=== PATIENT | female | born 1990 | race Caucasian/White ===

== ENCOUNTER 2019-08-28 12:10 | Emergency (ER) | payer SELFPAY ==
[2019-08-28 12:15] VITALS: BP 136/90; PULSE 49; RESP 12; TEMP 36.7; O2SAT 100; BMI 18.5
--- NOTE | 2019-08-28 12:25 | W.ED.ABDPA2 ---
HPI - Abdominal Pain General: Chief Complaint: Abdominal Pain Stated Complaint: abd pain Time Seen by Provider: 08/28/19 12:25 Source: patient Mode of arrival: ambulatory Limitations: no limitations History of Present Illness: HPI narrative: Patient is a 29-year-old female who presents to ED today with complaints of abdominal pain, nausea, vomiting, diarrhea that initially began on Saturday. She states she had approximately 3 episodes of vomiting and 3 episodes of diarrhea. She denies blood in her vomit or coffee-ground emesis. She has not had any bright red blood or melanotic stools. Patient states all day Saturday and she felt back to normal but states today diarrhea began again and has had approximately 3-5 stools. No further episodes of vomiting. States will have abdominal crampy-like sensations prior to defecation that will alleviate after having a stool. She has not been running fevers. No sick contacts. No recent antibiotic use. No bad food exposures. No EtOH or NSAID use. MD elicited complaint: abdominal pain Pertinent past history: none Onset (ago): day(s) Pain Consistency: intermittent Location: Diffuse Quality: cramping Radiation: none Migration to: no migration Exacerbating factors: nothing Relieving factors: bowel movement Associated Symptoms: Reports GI cramping, diarrhea, nausea and vomiting; Denies belching, chills, coffee ground emesis, dysuria, excessive flatus, fever(s), heartburn, hematochezia, hematemesis, fecal incontinence, melena and syncope Related Data: Date of Last Menstrual Period: 08/13/19 Review of Systems Const: Denies: fever, chills, body aches, fatigue or malaise Eyes: Denies: change in vision or blurry vision ENMT: Denies: painful swallowing Card: Denies: chest pain, palpitations, irregular heart rhythm, lightheadedness, syncope or shortness of breath on exertion Resp: Denies: shortness of breath, productive cough or pain on inspiration GI: Reports: abdominal pain, nausea, vomiting, diarrhea and cramping; Denies: vomiting blood, coffee grounds in vomit, difficulty swallowing, heartburn/indigestion, feeling full early, belching, excessive passing of gas, fecal incontinence, painful bowel movements, rectal pain, rectal swelling, rectal itching, blood in stool, black tarry stool, mucus in stool, white/light colored stool or fatty stool : Denies: flank pain, difficulty urinating, painful urination, urinary frequency, urinary urgency or urinary hesitancy Musc: Denies: neck pain, back pain or joint pain Skin/Breast: Denies: rash Neuro: Denies: headache, numbness in extremities, weakness in extremities or changes in sensation PFSH ED PFSH: Social History Smoking and tobacco status: current every day smoker Female Reproductive History: Date of last menstrual period: 08/13/19 Physical Exam Const: COMMON NORMALS: no apparent distress, average body habitus, oriented x3, no limitations, healthy appearing, alert and well nourished Resp: COMMON NORMALS: normal respiratory effort and clear to auscultation bilaterally AUSCULTATION: clear to auscultation bilaterally Cardio: COMMON NORMALS: regular rate and regular rhythm RATE: regular rate RHYTHM: regular rhythm GI: COMMON NORMALS: normal to inspection, nondistended, normoactive bowel sounds, soft to palpation, no hepatosplenomegaly and no masses PALPATION: Yes soft, Yes tender (very mild tenderness throughout; non-surgical examination) and Yes no hepatosplenomegaly : COMMON NORMALS: Yes no CVA tenderness BLADDER/KIDNEY EXAM: Yes no CVA tenderness Back/Pelvis: COMMON NORMALS: no CVA tenderness Extremity: COMMON NORMALS: normal to inspection Neuro: COMMON NORMALS: oriented x3 SENSORIUM/ORIENTATION: Yes alert Skin: COMMON NORMALS: no rashes or lesions noted GENERAL SKIN EXAM: no rashes or lesions noted Course Vital Signs: Vital signs: Vital Signs Temperature 98.1 F 08/28/19 12:15 Pulse Rate 49 L 08/28/19 12:15 Respiratory Rate 12 08/28/19 12:15 Blood Pressure 136/90 08/28/19 12:15 Pulse Oximetry 100 08/28/19 12:15 MDM - Abdominal Pain MDM Narrative: Medical decision making narrative: pt clinically appears well; her vitals and labs area all stable/normal; she has a non-surgical abdominal exam; she was given IV fluid hydration here; she is stable for DC with return precautions Lab Data: Labs: Lab Results 08/28/19 08/28/19 08/28/19 Range/Units 12:37 12:37 12:37 WBC 5.8 (4.0-10.0) 10^3/ uL RBC 4.21 (4.1-5.3) 10^6/u L Hgb 12.3 (11.5-15.3) g/dL Hct 38.9 (37.0-47.0) % MCV 92.4 (81-99) fL MCH 29.2 (28.0-34.0) pg MCHC 31.6 (30.0-36.0) g/dL RDW 15.2 H (12.1-15.1) % Plt Count 316 (130-400) 10^3/c mm MPV 10.1 (7.4-10.4) fL Neut % (Auto) 56.6 % Lymph % (Auto) 35.5 % Smyth % (Auto) 5.1 % Eos % (Auto) 2.1 % Baso % (Auto) 0.5 % Neut # (Auto) 3.3 (1.8-7.7) 10^3/u L Lymph # (Auto) 2.1 (0.8-4.8) 10^3/u L Smyth # (Auto) 0.3 (0.2-0.9) 10^3/u L Eos # (Auto) 0.1 (0.0-0.8) 10^3/u L Baso # (Auto) 0.0 (0.0-0.1) 10^3/u L Nucleated RBC % (a uto) 0 % Nucleated RBCs # 0.0 /100WBC Sodium 138 (136-145) mmol/L Potassium 3.9 (3.5-5.1) mmol/L Chloride 102 (98-107) mmol/L Carbon Dioxide 26 (22-29) mmol/L Anion Gap 13.9 (5-19) BUN 7 (6-20) mg/dL Creatinine 0.6 (0.5-0.9) mg/dL GFR Calculation 116.6 (90-130) mL/min Glucose 96 (65-115) mg/dL Calculated Osmolal ity 282 L (285-295) mOsm/k g Calcium 8.8 (8.5-10.5) mg/dL Total Bilirubin 0.4 (0.15-1.2) mg/dL AST 29 (0-32) U/L ALT 27 (0-33) U/L Alkaline Phosphata se 71 (35-105) IU/L Total Protein 6.7 (6.6-8.7) g/dL Albumin 4.6 (3.5-5.2) g/dL Globulin 2.1 (1.3-4.6) g/dL Lipase 23 (13-60) U/L HCG, Qual Negative (Negative) Urine Color (Yellow) Urine Appearance (CLEAR) Urine pH (5-7) Ur Specific Gravit y (1.005-1.030) Urine Protein (Negative) Urine Glucose (UA) (Normal) Urine Ketones (Negative) Urine Blood (Negative) Urine Nitrate (Negative) Urine Bilirubin (NEGATIVE) Urine Urobilinogen (Negative) mg/dL Ur Leukocyte Linda ase (Negative) 08/28/19 Range/Units 13:02 WBC (4.0-10.0) 10^3/ uL RBC (4.1-5.3) 10^6/u L Hgb (11.5-15.3) g/dL Hct (37.0-47.0) % MCV (81-99) fL MCH (28.0-34.0) pg MCHC (30.0-36.0) g/dL RDW (12.1-15.1) % Plt Count (130-400) 10^3/c mm MPV (7.4-10.4) fL Neut % (Auto) % Lymph % (Auto) % Smyth % (Auto) % Eos % (Auto) % Baso % (Auto) % Neut # (Auto) (1.8-7.7) 10^3/u L Lymph # (Auto) (0.8-4.8) 10^3/u L Smyth # (Auto) (0.2-0.9) 10^3/u L Eos # (Auto) (0.0-0.8) 10^3/u L Baso # (Auto) (0.0-0.1) 10^3/u L Nucleated RBC % (a uto) % Nucleated RBCs # /100WBC Sodium (136-145) mmol/L Potassium (3.5-5.1) mmol/L Chloride (98-107) mmol/L Carbon Dioxide (22-29) mmol/L Anion Gap (5-19) BUN (6-20) mg/dL Creatinine (0.5-0.9) mg/dL GFR Calculation (90-130) mL/min Glucose (65-115) mg/dL Calculated Osmolal ity (285-295) mOsm/k g Calcium (8.5-10.5) mg/dL Total Bilirubin (0.15-1.2) mg/dL AST (0-32) U/L ALT (0-33) U/L Alkaline Phosphata se (35-105) IU/L Total Protein (6.6-8.7) g/dL Albumin (3.5-5.2) g/dL Globulin (1.3-4.6) g/dL Lipase (13-60) U/L HCG, Qual (Negative) Urine Color Yellow (Yellow) Urine Appearance Clear (CLEAR) Urine pH 7 (5-7) Ur Specific Gravit y 1.005 (1.005-1.030) Urine Protein Neg (Negative) Urine Glucose (UA) Norm (Normal) Urine Ketones Negative (Negative) Urine Blood Neg (Negative) Urine Nitrate Negative (Negative) Urine Bilirubin Neg (NEGATIVE) Urine Urobilinogen Norm (Negative) mg/dL Ur Leukocyte Linda ase Negative (Negative) Discharge Plan Discharge Patient Disposition: Home, Self-Care Clinical Impression: Gastroenteritis Condition: Stable Prescriptions: New Zofran 4 mg tablet 4 mg PO Q6H PRN (Reason: nausea and vomiting) Qty: 14 RF: 0 dicyclomine 20 mg tablet 20 mg PO QID PRN (Reason: diarrhea) Qty: 20 RF: 0 No Action Multiple Vitamins Tablet 1 tab PO DAILY RF: 0 ProAir HFA 90 mcg/actuation Hfa Aerosol Inhaler 2 puff INHALATION Q4H PRN (Reason: Shortness Of Breath) RF: 0 Discharge Orders: Discharge Order (Routine); Ordered 08/28/19 Ordered By: Yelitza Bond Referrals: Konstantin Meeks MD [Primary Care Provider] - Discharge Diet: Advance as tolerated Discharge Activity: Increase activity as tolerated Patient Instructions: Diarrhea - Adult, Gastroenteritis (ED) Coding Level of Care Code ED Staff Climate Scientist for Chg Fwd Exam Detailed
[2019-08-28 12:44] LABS: Basophils % 0.5 %; Eosinophils # 0.1 10^3/uL (0.0-0.8); Eosinophils % 2.1 %; Hematocrit 38.9 % (37.0-47.0); Hemoglobin 12.3 g/dL (11.5-15.3); Lymphocytes # 2.1 10^3/uL (0.8-4.8); Lymphocytes % 35.5 %; Mean Corpuscular HGB Conc 31.6 g/dL (30.0-36.0); Mean Corpuscular Hemoglobin 29.2 pg (28.0-34.0); Mean Corpuscular Volume 92.4 fL (81-99); Mean Platelet Volume 10.1 fL (7.4-10.4); Monocytes # 0.3 10^3/uL (0.2-0.9); Monocytes % 5.1 %; Neutrophils # 3.3 10^3/uL (1.8-7.7); Neutrophils % 56.6 %; Nucleated Red Blood Cells % 0 %; Platelet Count 316 10^3/cmm (130-400); Red Blood Count 4.21 10^6/uL (4.1-5.3); Red Cell Distribution Width 15.2 % (12.1-15.1); White Blood Count 5.8 10^3/uL (4.0-10.0)
[2019-08-28 13:00] LABS: Alanine Aminotransferase 27 U/L (0-33); Albumin Level 4.6 g/dL (3.5-5.2); Alkaline Phosphatase 71 IU/L (35-105); Anion Gap 13.9 (5-19); Aspartate Amino Transferase 29 U/L (0-32); Blood Urea Nitrogen 7 mg/dL (6-20); Calcium 8.8 mg/dL (8.5-10.5); Carbon Dioxide 26 mmol/L (22-29); Chloride 102 mmol/L (98-107); Globulin 2.1 g/dL (1.3-4.6); Glomerular Filtration Rate 116.6 mL/min (90-130); Glucose 96 mg/dL (65-115); Lipase 23 U/L (13-60); Osmolality Calculated 282 mOsm/kg (285-295); Potassium 3.9 mmol/L (3.5-5.1); Sodium 138 mmol/L (136-145); Total Bilirubin 0.4 mg/dL (0.15-1.2); Total Protein 6.7 g/dL (6.6-8.7)
[2019-08-28] MEDS: sodium chloride 0.9% 1,000 ML 999 ML IV (13:00)
[2019-08-28] MEDS: dicyclomine 20 mg Tablet PO (13:00)
[2019-08-28 13:01] LABS: HCG, Serum Qual Negative (Negative)
[2019-08-28 13:25] LABS: Add Urine Microscopic? NO
[2019-08-28 13:33] LABS: Bilirubin Urine Neg (NEGATIVE); Blood Urine Neg (Negative); Glucose Urine UA Norm (Normal); Ketones Urine Negative (Negative); Leukocyte Esterase Urine Negative (Negative); Nitrate Urine Negative (Negative); Protein Urine Neg (Negative); Specific Gravity, Urine 1.005 (1.005-1.030); Urine Appearance Clear (CLEAR); Urine Color Yellow (Yellow); Urobilinogen Urine Norm (Negative); pH Urine 7 (5-7)
[2019-08-28 13:50] VITALS: BP 121/65; PULSE 51; TEMP 36.6; O2SAT 99
== END 2019-08-28 13:50 | disposition home or self-care (01) ==
PROVIDERS: Emergency Provider Physician Assistant; Family Provider Family Medicine; PCP Family Medicine
DX: K52.9 Noninfective gastroenteritis and colitis, unspecified (principal); F17.210 Nicotine dependence, cigarettes, uncomplicated
CPT/HCPCS: 12345; 36415; 80053; 81003; 83690; 84703; 85025; 96360; 99283; A9270; J7030

== ENCOUNTER 2019-08-30 04:32 | Emergency (ER) | payer SELFPAY ==
[2019-08-30 05:15] VITALS: O2SAT 99
--- NOTE | 2019-08-30 05:15 | XR_ITS ---
WS: [id number] XR shoulder LT min 2V* [id number] REASON FOR EXAM: FALL/INJURY FINDINGS: The acromioclavicular joint is normal. The clavicle and scapula show no fractures. The glenoid humeral articulations are normal. XR/XR shoulder LT min 2V* [id number] IMPRESSION: Negative left shoulder
[2019-08-30 05:17] VITALS: BP 129/37; PULSE 57; RESP 16; TEMP 36.7; O2SAT 99; BMI 18.5
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
[2019-08-30 05:30] VITALS: BP 103/62; O2SAT 97
[2019-08-30] MEDS: ondansetron 4 MG Tablet PO (05:50)
[2019-08-30 06:00] VITALS: BP 103/62
[2019-08-30 06:30] VITALS: BP 100/65; O2SAT 97
== END 2019-08-30 06:35 | disposition home or self-care (01) ==
PROVIDERS: Emergency Provider Emergency Medicine; PCP Family Medicine
DX: S40.012A Contusion of left shoulder, initial encounter (principal); S06.0X0A Concussion without loss of consciousness, initial encounter; W01.0XXA Fall on same level from slipping, tripping and stumbling without subsequent striking against object, initial encounter; F17.210 Nicotine dependence, cigarettes, uncomplicated
CPT/HCPCS: 12345; 70450; 73030; 99281; 99283; Q0162

== ENCOUNTER 2020-02-25 18:38 | Emergency (ER) | payer SELFPAY ==
[2020-02-25 18:43] VITALS: BP 126/79; PULSE 95; RESP 18; TEMP 36.2; O2SAT 100; BMI 18.0
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
[2020-02-25 19:56] VITALS: BP 123/80; PULSE 88; RESP 18; O2SAT 97
[2020-02-25] MEDS: HYDROcodone-acetaminophen 7.5-325 mg Tablet 1 TAB PO (20:25)
== END 2020-02-25 21:57 | disposition home or self-care (01) ==
PROVIDERS: Emergency Provider Emergency Medicine
DX: S46.911A Strain of unspecified muscle, fascia and tendon at shoulder and upper arm level, right arm, initial encounter (principal); F17.210 Nicotine dependence, cigarettes, uncomplicated; V47.5XXA Car driver injured in collision with fixed or stationary object in traffic accident, initial encounter
CPT/HCPCS: 12345; 70450; 71045; 73030; 99281; 99283

== ENCOUNTER 2020-09-16 15:30 | Emergency (ER) | payer SELFPAY ==
[2020-09-16 15:39] VITALS: BP 131/88; PULSE 52; RESP 18; TEMP 37.1; O2SAT 98; BMI 18.8
--- NOTE | 2020-09-16 15:51 | ED_ITS ---
HPI - Headache General: Chief Complaint: Headache Stated Complaint: VERY BAD HEADACHE Time Seen by Provider: 09/16/20 15:44 Source: patient Mode of arrival: ambulatory Limitations: no limitations History of Present Illness: HPI Narrative: Patient is a nice 30-year-old female who presents to ED today for evaluation and treatment of a migraine headache. Patient tells me she has a chronic longstanding history of migraines . She states at one point she was on medications for these however that has been several years ago and is no longer on them secondary to losing her medical insurance. Patient tells me she began noticing a headache early this morning. She states headache was so severe it caused nausea and one episode of vomiting. She states she is having sensitivity to light and sound. She states her headache currently feels identical to previous migraines. She denies fever or neck pain/stiffness. No recent illness. She feels like her pain has slightly improved when compared to this morning and is currently rating it at a 6 out of 10. This is not the worst headache of her life. MD elicited complaint: migraine Pertinent past history: migraines Onset (ago): day(s) Onset description: gradually Exacerbating factors: light and noise Relieving factors: nothing Context: occurred at rest Associated symptoms: Reports nausea and vomiting (x1); Deny chest pain, confusion, fever(s), malaise or rash Treatments prior to arrival: none Review of Systems Const: Denies: fever(s), chills, body aches, fatigue or malaise Eyes: Reports: photophobia; Denies: change in vision, blurry vision, blind spots, floaters or seeing flashes ENMT: Denies: throat pain, odynophagia, ear or mastoid pain, nasal discharge or nasal congestion Card: Denies: chest pain Resp: Denies: dyspnea GI: Reports: nausea and vomiting (x1); Denies: hematemesis : Denies: flank pain or dysuria Musc: Denies: neck pain or joint pain Skin/Breast: Denies: rash Neuro: Reports: headache(s); Denies: numbness in extremities, weakness in extremities, sensory changes, lack of coordination, difficulty walking, frequent falls, dizziness, vertigo, confusion, behavioral changes, Slurred speech present or seizure-like activity FORMERLY [facility], [facility]–1983 ED PFSH: Social History (Reviewed 05/10/20 @ 05:19 by Anne-Marie Blackburn Smoking and tobacco status: current every day smoker Female Reproductive History: Date of last menstrual period: 08/13/19 Physical Exam Const: COMMON NORMALS: no acute distress, average body habitus, patient oriented x3, no limitations, healthy appearing, alert and well nourished GENERAL APPEARANCE: cooperative ORIENTATION/CONSCIOUSNESS: Yes awake, Yes oriented to person, Yes oriented to place and Yes oriented to time HENMT: COMMON NORMALS: normocephalic, atraumatic, hearing grossly normal bilaterally, external ears normal, EAC's normal and TM's normal bilaterally HEAD & SCALP: normal to inspection, normocephalic and atraumatic FACE & SINUS: normal facial exam and sinuses nontender EXTERNAL EAR: Yes external ears normal EXTERNAL AUDITORY CANAL: EAC's normal TYMPANIC MEMBRANE: TM's normal bilaterally Eye: COMMON NORMALS: Equal, round and reactive pupils present and EOMs intact bilaterally GENERAL EYE: appearance normal, both eyes and all related structures PUPIL: Yes Equal, round and reactive pupils present Neck/C-Spine: COMMON NORMALS: full ROM, no lymphadenopathy and no meningeal signs Resp: COMMON NORMALS: normal respiratory effort Neuro: MALLORY COMA SCALE: document GCS findings Mallory coma scale eye opening: Spontaneous [place] coma scale verbal response: Orientated [place] coma scale motor response: Obey commands [place] coma scale total score: 15 COMMON NORMALS: patient oriented x3, CN's II-XII intact bilaterally, moves all extremities, no focal motor deficits, no sensory deficits noted and gait normal SENSORIUM/ORIENTATION: Yes alert, Yes oriented to person, Yes oriented to place and Yes oriented to time MENINGEAL SIGNS: Yes no meningeal signs Skin: COMMON NORMALS: no rashes or lesions noted GENERAL SKIN EXAM: no rashes or lesions noted Course Vital Signs: Vital signs: Vital Signs Temperature 98.7 F 09/16/20 15:39 Pulse Rate 52 L 09/16/20 15:39 Respiratory Rate 18 09/16/20 15:39 Blood Pressure 131/88 09/16/20 15:39 Pulse Oximetry 98 09/16/20 15:39 MDM - Headache MDM Narrative: Medical decision making narrative: Patient reports her headache is down from a 6/10 to a 2/10 and reports it is almost completely gone . Patient states she feels more than comfortable to go home at this time. Discharge Plan Discharge Patient Disposition: Home Clinical Impression: Migraine Qualifiers: Migraine type: without aura Status migrainosus presence: without status migrainosus Intractability: not intractable Qualified Code(s): G43.009 - Migraine without aura, not intractable, without status migrainosus Condition: Stable Prescriptions: No Action dicyclomine 10 mg Capsule 10 mg PO DAILY PRN (Reason: IBS ) RF: 0 Discharge Orders: Discharge ED (Routine); Ordered 09/16/20 Ordered By: Yelitza Bond Patient Instructions: Headache - Migraine (Adult), Migraine Headache (ED) Coding Level of Care Code ED [employer] for Chg Fwd Exam Detailed
[2020-09-16] MEDS: sodium chloride 0.9% 1,000 ML 999 ML IV (16:09)
[2020-09-16] MEDS: ondansetron 2 mg/ML SDV 2 mL 4 MG IVP (16:11)
[2020-09-16] MEDS: ketorolac 60 mg/2 mL INJ 30 MG IVP (16:12)
[2020-09-16] MEDS: diphenhydrAMINE 50 mg/mL SDV 1mL 25 MG IVP (16:13)
[2020-09-16] MEDS: dexamethasone 4 mg/mL INJ 6 MG IVP (16:19)
== END 2020-09-16 17:35 | disposition home or self-care (01) ==
PROVIDERS: Emergency Provider Physician Assistant
DX: G43.009 Migraine without aura, not intractable, without status migrainosus (principal); F17.210 Nicotine dependence, cigarettes, uncomplicated
CPT/HCPCS: 96361; 96374; 96375; 99284; J1100; J1200; J1885; J2405; J7030

== ENCOUNTER 2020-09-21 13:04 | Emergency (ER) | payer SELFPAY ==
[2020-09-21 13:09] VITALS: BP 108/75; PULSE 59; RESP 18; TEMP 36.7; O2SAT 98; BMI 18.0
--- NOTE | 2020-09-21 13:39 | ED_ITS ---
HPI - Abdominal Pain General: Chief Complaint: Abdominal Pain Stated Complaint: ABD PAIN Time Seen by Provider: 09/21/20 13:08 History of Present Illness: HPI narrative: 30-year-old female presents emergency room complaining of abdominal cramping and discomfort. She has previously been told she has irritable bowel she had severe pain earlier today with 1 episode of vomiting. She is on dicyclomine and Pepto-Bismol she had moderate relief with that. She still has MD elicited complaint: abdominal pain Pertinent past history: other (Irritable bowel) Onset (ago): hour(s) Pain Consistency: intermittent Location: Diffuse Severity: mild Quality: cramping Radiation: none Migration to: no migration Exacerbating factors: eating Relieving factors: nothing Associated Symptoms: Reports bloating, poor appetite and vomiting; Denies anorexia, belching, change in bowel habits, change in stool character, chills, coffee ground emesis, constipation, GI cramping, diarrhea, dyspepsia, dysuria, excessive flatus, fever(s), heartburn, hematochezia, hematuria, hematemesis, fecal incontinence, loose stools, melena, nausea and syncope Related Data: Date of Last Menstrual Period: 09/14/20 Review of Systems Const: Denies: fever(s) or chills ENMT: Denies: throat pain, ear or mastoid pain, nasal discharge or nasal congestion Card: Denies: syncope Resp: Denies: dyspnea, productive cough or non-productive cough GI: Reports: vomiting and bloating; Denies: nausea, hematemesis, coffee ground emesis, heartburn, diarrhea, constipation, GI cramping, belching, excessive flatus, fecal incontinence, change in bowel habits, change in stool character, hematochezia or melena : Denies: dysuria or hematuria Skin/Breast: Denies: rash or pruritus PFSH ED PFSH: Social History Smoking and tobacco status: current every day smoker Female Reproductive History: Date of last menstrual period: 09/14/20 Physical Exam Const: COMMON NORMALS: no acute distress GENERAL APPEARANCE: cooperative and comfortable ORIENTATION/CONSCIOUSNESS: Yes awake, Yes oriented to person, Yes oriented to place and Yes oriented to time HENMT: COMMON NORMALS: normocephalic, atraumatic and hearing grossly normal bilaterally HEAD & SCALP: normocephalic and atraumatic Neck/C-Spine: COMMON NORMALS: no JVD Resp: COMMON NORMALS: normal respiratory effort, No retractions, No use of accessory muscles and clear to auscultation bilaterally AUSCULTATION: clear to auscultation bilaterally Cardio: COMMON NORMALS: no JVD, regular rate, regular rhythm and No murmurs present (Cardio) RATE: regular rate RHYTHM: regular rhythm GI: COMMON NORMALS: Soft to palpation and No hepatosplenomegaly present AUSCULTATION: Yes normoactive bowel sounds PALPATION: Yes Soft to palpation, No Tenderness to palpation present (GI), No Guarding due to palpation present (GI) and Yes No hepatosplenomegaly present Extremity: COMMON NORMALS: normal to inspection, capillary refill normal, no clubbing, cyanosis or edema, no calf tenderness and no pedal edema Neuro: SENSORIUM/ORIENTATION: Yes oriented to person, Yes oriented to place and Yes oriented to time Skin: COMMON NORMALS: no rashes or lesions noted GENERAL SKIN EXAM: no rashes or lesions noted Course Vital Signs: Vital signs: Vital Signs Temperature 98.1 F 09/21/20 13:09 Pulse Rate 59 L 09/21/20 13:09 Respiratory Rate 18 09/21/20 13:09 Blood Pressure 108/75 09/21/20 13:09 Pulse Oximetry 98 09/21/20 13:09 MDM - Abdominal Pain MDM Narrative: Medical decision making narrative: Patient eloped without us having the opportunity to discuss with her her exam initially was quite a number. Nursing staff did have PD do a well person check since she eloped with the IV in place. Lab Data: Labs: Lab Results 09/21/20 09/21/20 09/21/20 Range/Units 13:45 13:45 13:45 WBC 5.0 (4.0-10.0) 10^3/ uL RBC 4.32 (4.1-5.3) 10^6/u L Hgb 13.1 (11.5-15.3) g/dL Hct 40.3 (37.0-47.0) % MCV 93.3 (81-99) fL MCH 30.3 (28.0-34.0) pg MCHC 32.5 (30.0-36.0) g/dL RDW 13.8 (12.1-15.1) % Plt Count 292 (130-400) 10^3/c mm MPV 10.5 H (7.4-10.4) fL Neut % (Auto) 52.4 % Lymph % (Auto) 40.6 % [place] % (Auto) 4.6 % Eos % (Auto) 1.2 % Baso % (Auto) 0.8 % Neut # (Auto) 2.61 (1.8-7.7) 10^3/u L Lymph # (Auto) 2.0 (0.8-4.8) 10^3/u L [place] # (Auto) 0.2 (0.2-0.9) 10^3/u L Eos # (Auto) 0.1 (0.0-0.8) 10^3/u L Baso # (Auto) 0.0 (0.0-0.1) 10^3/u L Nucleated RBC % (a uto) 0 % Nucleated RBCs # 0.0 /100WBC Sodium Cancelled Potassium Cancelled Chloride Cancelled Carbon Dioxide Cancelled Anion Gap Cancelled BUN Cancelled Creatinine Cancelled GFR Calculation Cancelled Glucose Cancelled Calculated Osmolal ity Cancelled Calcium Cancelled Total Bilirubin Cancelled AST Cancelled ALT Cancelled Alkaline Phosphata se Cancelled Total Protein Cancelled Albumin Cancelled Globulin Cancelled Lipase Cancelled HCG, Qual Negative (Negative) Discharge Plan Discharge Patient Disposition: Left Against Medical Advice Prescriptions: No Action dicyclomine 10 mg Capsule 10 mg PO DAILY PRN (Reason: IBS ) RF: 0 Tylenol 325 mg Tablet 325 - 650 mg PO QID PRN (Reason: Pain) RF: 0 ibuprofen 200 mg Tablet 200 mg PO Q6H PRN (Reason: pain/fever) RF: 0 albuterol sulfate 90 mcg/actuation Hfa Aerosol Inhaler 1 inh INHALATION QID PRN (Reason: Shortness Of Breath) RF: 0 Excedrin Migraine 250-250-65 mg Tablet 1 - 2 tab PO Q6H PRN (Reason: Migraine Headache) RF: 0 Women's One Daily 1 tab PO DAILY RF: 0 Coding Level of Care Code ED Vessel Slagman for Chg Fwd Exam Comprehensive
[2020-09-21] MEDS: ondansetron 2 mg/ML SDV 2 mL 4 MG IVP (13:50)
[2020-09-21] MEDS: sodium chloride 0.9% 1,000 ML 999 ML IV (13:51)
[2020-09-21] MEDS: metoclopramide 5 mg/mL SDV 2 mL 10 MG IVP (13:53)
[2020-09-21 13:57] LABS: Basophils % 0.8 %; Eosinophils # 0.1 10^3/uL (0.0-0.8); Eosinophils % 1.2 %; Hematocrit 40.3 % (37.0-47.0); Hemoglobin 13.1 g/dL (11.5-15.3); Lymphocytes % 40.6 %; Mean Corpuscular HGB Conc 32.5 g/dL (30.0-36.0); Mean Corpuscular Hemoglobin 30.3 pg (28.0-34.0); Mean Corpuscular Volume 93.3 fL (81-99); Mean Platelet Volume 10.5 fL (7.4-10.4); Monocytes # 0.2 10^3/uL (0.2-0.9); Monocytes % 4.6 %; Neutrophils # 2.61 10^3/uL (1.8-7.7); Neutrophils % 52.4 %; Nucleated Red Blood Cells % 0 %; Platelet Count 292 10^3/cmm (130-400); Red Blood Count 4.32 10^6/uL (4.1-5.3); Red Cell Distribution Width 13.8 % (12.1-15.1)
[2020-09-21 14:31] LABS: HCG, Serum Qual Negative (Negative)
--- NOTE | 2020-09-21 14:39 | PC.NURSE ---
Pt updated on plan of care, pt reports pain now up to 8/10, nitro gtt titrated to 20mcg/min. No other needs identified at this time.
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
== END 2020-09-21 15:20 | disposition left against medical advice (07) ==
LOC: ER 13:26
PROVIDERS: Emergency Provider Family Medicine
DX: R10.9 Unspecified abdominal pain (principal); Z53.21 Procedure and treatment not carried out due to patient leaving prior to being seen by health care provider; F17.210 Nicotine dependence, cigarettes, uncomplicated
CPT/HCPCS: 84703; 85025; 96361; 96374; 96375; 99283; J2405; J2765; J7030

== ENCOUNTER 2021-03-23 00:27 | Emergency (ER) | payer SELFPAY ==
[2021-03-23 00:36] VITALS: BP 150/103; PULSE 56; RESP 18; TEMP 36.8; O2SAT 100; BMI 18.0
--- NOTE | 2021-03-23 00:44 | W.ED.DENTAL ---
HPI - Dental/Oral General: Chief complaint: Dental/Oral Stated complaint: Absessed Tooth\Broken [place] Time Seen by Provider: 03/23/21 00:44 History of Present Illness: HPI Narrative: Patient comes in with some left lower jaw pain. Patient has a decayed tooth to the gumline in the left lower jaw and a crown that has more pain. Patient appears well. Patient appears moderate to severe pain. Patient denies any chronic medical problems. Review of Systems General: Reports: 10 or more systems reviewed and unremarkable except in HPI and below ENMT: Reports: dental pain PFSH ED PFSH: Social History Smoking and tobacco status: current every day smoker Female Reproductive History: Date of last menstrual period: 03/11/21 Physical Exam Const: COMMON NORMALS: no acute distress and patient oriented x3 GENERAL APPEARANCE: cooperative HENMT: COMMON NORMALS: normocephalic and TM's normal bilaterally HEAD & SCALP: normal to inspection and normocephalic TYMPANIC MEMBRANE: TM's normal bilaterally MOUTH: other (Poor dentition, decayed #17 molar left lower jaw, tenderness to the #16) THROAT: posterior oropharynx normal Eye: GENERAL EYE: appearance normal, both eyes and all related structures Neck/C-Spine: COMMON NORMALS: full ROM Lymph: LYMPHATIC: no lymphadenopathy noted Chest: COMMONS NORMALS: normal inspection of the chest Resp: COMMON NORMALS: normal respiratory effort EFFORT & INSPECTION: Yes able to speak in complete sentences Cardio: COMMON NORMALS: regular rate and regular rhythm RATE: regular rate RHYTHM: regular rhythm GI: COMMON NORMALS: non-tender Back/Pelvis: COMMON NORMALS: thoracic and lumbar spine normal to inspection Extremity: COMMON NORMALS: normal to inspection Neuro: COMMON NORMALS: patient oriented x3 and moves all extremities Psych: COMMON NORMALS: mental status grossly normal and cooperative Skin: COMMON NORMALS: no rashes or lesions noted GENERAL SKIN EXAM: no rashes or lesions noted Course Vital Signs: Vital signs: Vital Signs Temperature 98.2 F 03/23/21 00:36 Pulse Rate 56 L 03/23/21 00:36 Respiratory Rate 18 03/23/21 00:36 Blood Pressure 150/103 03/23/21 00:36 Pulse Oximetry 100 03/23/21 00:36 MDM - Dental/Oral MDM Narrative: Medical decision making narrative: Patient comes in today with complaints of dental pain. On exam patient has a decayed tooth to the gumline of the rear molar in the left lower jaw. Patient also has a crown that she reports is being more tender which is anterior to the decayed tooth. Surrounding gum tissue shows no redness or swelling. Differential diagnosis includes periapical abscess, dental caries, dental pain. We will go ahead and treat with clindamycin 300 twice a day for 7 days to rule out any mild periapical abscess. Patient was given some viscous lidocaine and hydrocodone in the ER to help control the pain. Patient had a prescription for lidocaine viscus and diclofenac for further pain relief. Encourage fluids rest and follow-up with dentist. Patient reported understanding. Discharge Plan Discharge Patient Disposition: Home Clinical Impression: Toothache, Dental caries Condition: Stable Prescriptions: New clindamycin HCl 300 mg capsule 300 mg PO BID 7 Days Qty: 14 RF: 0 Lidocaine Viscous 2 % solution 5 ml mucous membrane QID PRN (Reason: oral pain) Qty: 100 RF: 0 diclofenac potassium 25 mg capsule 25 mg PO QID PRN (Reason: pain) Qty: 10 RF: 0 No Action dicyclomine 10 mg Capsule 10 mg PO DAILY PRN (Reason: IBS ) RF: 0 Tylenol 325 mg Tablet 325 - 650 mg PO QID PRN (Reason: Pain) RF: 0 ibuprofen 200 mg Tablet 200 mg PO Q6H PRN (Reason: pain/fever) RF: 0 albuterol sulfate 90 mcg/actuation Hfa Aerosol Inhaler 1 inh INHALATION QID PRN (Reason: Shortness Of Breath) RF: 0 Excedrin Migraine 250-250-65 mg Tablet 1 - 2 tab PO Q6H PRN (Reason: Migraine Headache) RF: 0 Women's One Daily 1 tab PO DAILY RF: 0 Discharge Orders: Discharge ED (Routine); Ordered 03/23/21 Ordered By: Rene Farrell Discharge Diet: Usual diet Discharge Activity: Increase activity as tolerated Patient Instructions: Toothache (ED), Opioid Safety Activity Restrictions/Additional Instructions: Home and rest. Drink plenty of fluids. Take antibiotics as directed. Follow-up with primary care for further instructions. See a dentist for definitive care. Return to the ER for new concerns. Coding Level of Care Code ED [place] for Carola Vieyra
[2021-03-23 01:04] VITALS: PULSE 67; RESP 22; O2SAT 99
[2021-03-23] MEDS: clindamycin 150 mg Capsule 300 MG PO ×2 (01:08→01:12)
[2021-03-23] MEDS: lidocaine 2% viscous 15 mL UDC 5 ML MUCOUS MEM (01:09)
[2021-03-23] MEDS: HYDROcodone-acetaminophen 5-325 mg Tablet 1 TAB PO (01:09)
--- NOTE | 2021-03-23 01:13 | PC.NURSE ---
Pt received 300mg of cleocin
--- NOTE | 2021-03-27 13:15 | DCPLANNER ---
manager action had message to speak with patient about getting a dentist. manager action called phone number [phone], unable to speak with patient at this time. A voicemail was left for patient to return case therapist phone call.
== END 2021-03-23 01:13 | disposition home or self-care (01) ==
PROVIDERS: Emergency Provider Nurse Practitioner Family
DX: F17.210 Nicotine dependence, cigarettes, uncomplicated (principal); K08.89 Other specified disorders of teeth and supporting structures; K02.9 Dental caries, unspecified
CPT/HCPCS: 99283

== ENCOUNTER 2021-05-18 08:08 | Emergency (ER) | payer SELFPAY ==
[2021-05-18 08:18] VITALS: BP 118/73; PULSE 95; RESP 16; TEMP 36.7; O2SAT 100; BMI 17.2
[2021-05-18 08:34] VITALS: BP 118/73; PULSE 95; RESP 16; TEMP 36.7; O2SAT 100
--- NOTE | 2021-05-18 08:34 | W.ED.HA ---
HPI - Headache General: Chief Complaint: Abdominal Pain Stated Complaint: NOT SLEEPING, VOMITING,URINATED ON SELF, WEAKNESS Time Seen by Provider: 05/18/21 08:10 Source: patient Mode of arrival: ambulatory Limitations: no limitations History of Present Illness: Patient is a nice 30-year-old female who presents to ED today with a main complaint of a migraine headache. Patient does tell me she has a longstanding history of migraine headaches. She states last night before she went to bed she could feel one coming on and states when she woke up this morning she had a severe headache. She said she had one episode of vomiting which is not uncommon with her migraines. Patient reports her headache currently feels identical to previous migraine headaches. 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 Patient states she is only getting approximately 4 hours of sleep at night and reports she has a chronic history of sleep apnea so does not feel like her sleep is very restorative. She feels exhausted. She has a history of anxiety and states secondary to lack of sleep her anxiety has been worse than normal. Patient does report an episode of urine incontinence this morning when she awoke which is never happened before. She does not complain of dysuria, frequency, urgency. No abdominal pain. MD elicited complaint: headache Onset (ago): hour(s) Location: frontal and temporal Severity: severe Pain scale (0-10): 10 Quality & Timing: similar to previous headaches Associated symptoms: Deny chest pain, confusion, fever(s), lightheadedness, malaise, nausea, rash, syncope or vomiting Treatments prior to arrival: none Review of Systems Const: Reports: fatigue and snoring (reports chronic sleep apnea); Denies: fever(s), chills, body aches, malaise or night sweats Eyes: Denies: change in vision or blurry vision Card: Denies: chest pain, palpitations, irregular heart rhythm, lightheadedness, syncope or dyspnea on exertion Resp: Denies: dyspnea, productive cough or pain on inspiration GI: Denies: abdominal pain, nausea, vomiting, heartburn or diarrhea : Reports: urinary incontinence (one episode this morning); Denies: flank pain, difficulty voiding, dysuria or urinary frequency Musc: Denies: neck pain, back pain, extremity pain or joint pain Skin/Breast: Denies: rash Neuro: Reports: headache(s); Denies: numbness in extremities, weakness in extremities, sensory changes, lack of coordination, difficulty walking, dizziness, vertigo, confusion, behavioral changes, Slurred speech present, difficulty communicating thoughts or seizure-like activity Psych: Reports: anxiety; Denies: suicidal ideation or homicidal ideation PFSH ED PFSH: Social History Smoking and tobacco status: current every day smoker Female Reproductive History: Date of last menstrual period: 03/11/21 Physical Exam Const: COMMON NORMALS: no acute distress, patient oriented x3, no limitations and alert GENERAL APPEARANCE: cooperative and anxious NUTRITIONAL APPEARANCE: thin ORIENTATION/CONSCIOUSNESS: Yes awake, Yes oriented to person and Yes oriented to time HENMT: COMMON NORMALS: normocephalic and atraumatic HEAD & SCALP: normocephalic and atraumatic Resp: COMMON NORMALS: normal respiratory effort and clear to auscultation bilaterally AUSCULTATION: clear to auscultation bilaterally Cardio: COMMON NORMALS: regular rate and regular rhythm RATE: regular rate RHYTHM: regular rhythm GI: COMMON NORMALS: Normal to inspection, nondistended, normoactive bowel sounds present, Soft to palpation, non-tender, No hepatosplenomegaly present and no masses PALPATION: Yes Soft to palpation and Yes No hepatosplenomegaly present : COMMON NORMALS: Yes no CVA tenderness BLADDER/KIDNEY EXAM: Yes no CVA tenderness Back/Pelvis: COMMON NORMALS: no CVA tenderness Neuro: COMMON NORMALS: patient oriented x3 SENSORIUM/ORIENTATION: Yes alert, Yes oriented to person and Yes oriented to time Course Vital Signs: Vital signs: Vital Signs Temperature 98.1 F 05/18/21 08:34 Pulse Rate 91 05/18/21 09:02 Respiratory Rate 16 05/18/21 09:02 Blood Pressure 101/67 05/18/21 09:02 Pulse Oximetry 99 05/18/21 09:02 MDM - Headache Medical Decision Making RICHARDS much improved after IV meds/fluids. Vitals stable. Lab work fairly unremarkable-very minimally elevated LFTs-denies etoh/drug use. UA contaminated with 25-40 squamous cells but does not look overly suspicious for UTI. She has no complaints of dysuria, frequency, urgency, etc. Recommend rest over the next 48 hours and follow up with PCP. Lab Data : 05/18/21 08:45 05/18/21 08:45 Laboratory Results WBC 6.8 10^3/uL (4.0-10.0) 05/18/21 08:45 RBC 4.58 10^6/uL (4.1-5.3) 05/18/21 08:45 Hgb 13.7 g/dL (11.5-15.3) 05/18/21 08:45 Hct 42.8 % (37.0-47.0) 05/18/21 08:45 MCV 93.4 fl (81-99) 05/18/21 08:45 MCH 29.9 pg (28.0-34.0) 05/18/21 08:45 MCHC 32.0 g/dL (30.0-36.0) 05/18/21 08:45 RDW 14.2 % (12.1-15.1) 05/18/21 08:45 Plt Count 319 10^3/cmm (130-400) 05/18/21 08:45 MPV 10.1 fL (7.4-10.4) 05/18/21 08:45 Neut % (Auto) 81.9 % 05/18/21 08:45 Lymph % (Auto) 8.4 % 05/18/21 08:45 [place] % (Auto) 6.9 % 05/18/21 08:45 Eos % (Auto) 1.8 % 05/18/21 08:45 Baso % (Auto) 0.7 % 05/18/21 08:45 Neut # (Auto) 5.56 10^3/uL (1.8-7.7) 05/18/21 08:45 Lymph # (Auto) 0.6 10^3/uL (0.8-4.8) L 05/18/21 08:45 [place] # (Auto) 0.5 10^3/uL (0.2-0.9) 05/18/21 08:45 Eos # (Auto) 0.1 10^3/uL (0.0-0.8) 05/18/21 08:45 Baso # (Auto) 0.1 10^3/uL (0.0-0.1) 05/18/21 08:45 Nucleated RBC % (auto) 0 % 05/18/21 08:45 Nucleated RBCs # 0.0 /100WBC 05/18/21 08:45 Sodium 134 mmol/L (136-145) L 05/18/21 08:45 Potassium 4.6 mmol/L (3.5-5.1) 05/18/21 08:45 Chloride 98 mmol/L (98-107) 05/18/21 08:45 Carbon Dioxide 22 mmol/L (22-29) 05/18/21 08:45 Anion Gap 18.6 (5-19) 05/18/21 08:45 BUN 13 mg/dL (6-20) 05/18/21 08:45 Creatinine 0.5 mg/dL (0.5-0.9) 05/18/21 08:45 GFR Calculation 143.0 mL/min (90-130) H 05/18/21 08:45 Glucose 89 mg/dL (65-115) 05/18/21 08:45 Calculated Osmolality 278 mOsm/kg (285-295) L 05/18/21 08:45 Calcium 9.9 mg/dL (8.5-10.5) 05/18/21 08:45 Total Bilirubin 0.4 mg/dL (0.15-1.2) 05/18/21 08:45 AST 42 U/L (0-32) H 05/18/21 08:45 ALT 35 U/L (0-33) H 05/18/21 08:45 Alkaline Phosphatase 88 IU/L (35-105) 05/18/21 08:45 Total Protein 7.5 g/dL (6.6-8.7) 05/18/21 08:45 Albumin 4.7 g/dL (3.5-5.2) 05/18/21 08:45 Globulin 2.8 g/dL (1.3-4.6) 05/18/21 08:45 HCG, Qual Negative (Negative) 05/18/21 08:18 Urine Color Straw (Yellow) 05/18/21 08:18 Urine Appearance Cloudy (CLEAR) 05/18/21 08:18 Urine pH 5 (5-7) 05/18/21 08:18 Ur Specific [place] 1.015 (1.005-1.030) 05/18/21 08:18 Urine Protein Neg (Negative) 05/18/21 08:18 Urine Glucose (UA) Norm (Normal) 05/18/21 08:18 Urine Ketones Negative (Negative) 05/18/21 08:18 Urine Blood 2+ (Negative) H 05/18/21 08:18 Urine Nitrate Negative (Negative) 05/18/21 08:18 Urine Bilirubin Neg (Negative) 05/18/21 08:18 Urine Urobilinogen Norm mg/dL (Negative) 05/18/21 08:18 Ur Leukocyte Esterase Negative (Negative) 05/18/21 08:18 Urine RBC None /hpf (0-2) 05/18/21 08:18 Urine WBC 5-10 /hpf (0-5) H 05/18/21 08:18 Ur Squamous Epith Cells 25-40 /hpf (0-5) H 05/18/21 08:18 Amorphous Sediment Not Reportable 05/18/21 08:18 Urine Bacteria 2+ /hpf (NONE) H 05/18/21 08:18 Discharge Plan Discharge Patient Disposition: Home Clinical Impression: Headache, migraine Qualifiers: Migraine type: without aura Status migrainosus presence: without status migrainosus Intractability: not intractable Qualified Code(s): G43.009 - Migraine without aura, not intractable, without status migrainosus Condition: Stable Prescriptions: No Action Lidocaine Viscous 2 % solution 5 ml mucous membrane QID PRN (Reason: oral pain) Qty: 100 0RF diclofenac potassium 25 mg capsule 25 mg PO QID PRN (Reason: pain) Qty: 10 0RF dicyclomine 10 mg Capsule 10 mg PO DAILY PRN (Reason: IBS ) 0RF Rx Instructions: x 14 days Tylenol 325 mg Tablet 325 - 650 mg PO QID PRN (Reason: Pain) 0RF ibuprofen 200 mg Tablet 200 mg PO Q6H PRN (Reason: pain/fever) 0RF albuterol sulfate 90 mcg/actuation Hfa Aerosol Inhaler 1 inh INHALATION QID PRN (Reason: Shortness Of Breath) 0RF Excedrin Migraine 250-250-65 mg Tablet 1 - 2 tab PO Q6H PRN (Reason: Migraine Headache) 0RF Women's One Daily 1 tab PO DAILY 0RF Discharge Orders: Discharge ED (Routine); Ordered 05/18/21 Ordered By: Yelitza Bond Stand Alone Forms: Work/School Release Coding Level of Care Code ED 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
[2021-05-18] MEDS: diphenhydrAMINE 50 mg/mL SDV 1mL 25 MG IVP (08:51)
[2021-05-18 08:52] LABS: Basophils # 0.1 10^3/uL (0.0-0.1); Basophils % 0.7 %; Eosinophils # 0.1 10^3/uL (0.0-0.8); Eosinophils % 1.8 %; Hematocrit 42.8 % (37.0-47.0); Hemoglobin 13.7 g/dL (11.5-15.3); Lymphocytes # 0.6 10^3/uL (0.8-4.8); Lymphocytes % 8.4 %; Mean Corpuscular Hemoglobin 29.9 pg (28.0-34.0); Mean Corpuscular Volume 93.4 fl (81-99); Mean Platelet Volume 10.1 fL (7.4-10.4); Monocytes # 0.5 10^3/uL (0.2-0.9); Monocytes % 6.9 %; Neutrophils # 5.56 10^3/uL (1.8-7.7); Neutrophils % 81.9 %; Nucleated Red Blood Cells % 0 %; Platelet Count 319 10^3/cmm (130-400); Red Blood Count 4.58 10^6/uL (4.1-5.3); Red Cell Distribution Width 14.2 % (12.1-15.1); White Blood Count 6.8 10^3/uL (4.0-10.0)
[2021-05-18] MEDS: ketorolac 60 mg/2 mL INJ 30 MG IVP (08:52)
[2021-05-18] MEDS: ondansetron 2 mg/ML SDV 2 mL 4 MG IVP (08:53)
[2021-05-18] MEDS: LORazepam 2 mg/mL INJ 1 mL 0.5 MG IVP (08:53)
[2021-05-18] MEDS: sodium chloride 0.9% 1,000 ML 999 ML IV (08:57)
[2021-05-18 08:58] LABS: Add Urine Microscopic? YES; Bilirubin Urine Neg (Negative); Blood Urine 2+ (Negative); Glucose Urine UA Norm (Normal); HCG Qualitative Urine. Negative (Negative); Ketones Urine Negative (Negative); Leukocyte Esterase Urine Negative (Negative); Nitrate Urine Negative (Negative); Protein Urine Neg (Negative); Specific Gravity, Urine 1.015 (1.005-1.030); Urine Appearance Cloudy (CLEAR); Urine Color Straw (Yellow); Urobilinogen Urine Norm (Negative); pH Urine 5 (5-7)
[2021-05-18 09:02] VITALS: BP 101/67; PULSE 91; RESP 16; O2SAT 99
[2021-05-18 09:05] LABS: Add Urine Culture? No; Bacteria Urine 2+ /hpf; Squamous Epithelial Cell Urine 25-40 /hpf (0-5)
[2021-05-18 09:14] LABS: Alanine Aminotransferase 35 U/L (0-33); Albumin Level 4.7 g/dL (3.5-5.2); Alkaline Phosphatase 88 IU/L (35-105); Blood Urea Nitrogen 13 mg/dL (6-20); Calcium 9.9 mg/dL (8.5-10.5); Carbon Dioxide 22 mmol/L (22-29); Chloride 98 mmol/L (98-107); Creatinine Clr Calc Pharmacy 115.6655; Globulin 2.8 g/dL (1.3-4.6); Glucose 89 mg/dL (65-115); Osmolality Calculated 278 mOsm/kg (285-295); Sodium 134 mmol/L (136-145); Total Bilirubin 0.4 mg/dL (0.15-1.2); Total Protein 7.5 g/dL (6.6-8.7)
[2021-05-18 09:16] LABS: Anion Gap 18.6 (5-19); Aspartate Amino Transferase 42 U/L (0-32); Potassium 4.6 mmol/L (3.5-5.1)
[2021-05-18] MEDS: valproic acid inj 500 MG in sodium chloride 0.9% 50 ML 55 MG IV (10:35)
[2021-05-18 11:30] VITALS: BP 96/49; PULSE 67; RESP 18; O2SAT 96
[2021-05-18 12:07] VITALS: BP 96/49; PULSE 75; RESP 18; O2SAT 97
--- NOTE | 2021-05-18 12:08 | PC.NURSE ---
PATIENT DISCHARGED TO HOME- REMOVED IV CATH- IN TACT- PATIENT AMBULATED TO THE [facility] PER SELF
--- NOTE | 2021-05-19 10:57 | DCPLANNER ---
contract associate manager had message to speak with patient about getting established with primary care physician. contract associate manager called phone number [phone], unable to speak with patient at this time. contract associate manager left a voicemail for patient to return case management coordinator phone call.
== END 2021-05-18 12:08 | disposition home or self-care (01) ==
PROVIDERS: Emergency Provider Physician Assistant
DX: G43.009 Migraine without aura, not intractable, without status migrainosus (principal); F17.210 Nicotine dependence, cigarettes, uncomplicated
CPT/HCPCS: 80053; 81001; 81025; 85025; 96361; 96374; 96375; 99284; J1200; J1885; J2060; J2405; J7030

== ENCOUNTER 2021-05-24 17:49 | Emergency (ER) | payer SELFPAY ==
[2021-05-24 17:57] VITALS: BP 149/82; PULSE 77; RESP 16; TEMP 36.7; O2SAT 98; BMI 16.6
--- NOTE | 2021-05-24 18:10 | W.ED.GENADLT ---
HPI - General Adult General: Chief complaint: General Medical Stated complaint: N/V,headache Time Seen by Provider: 05/24/21 18:07 History of Present Illness: 30-year-old female comes in today with complaints of an episode of nausea and vomiting this afternoon requiring her to leave work. Patient reports that she has felt unwell for last 2 to 3 weeks. Patient does have a history of chronic migraines and anxiety. Patient reports that her anxiety has been worse. Patient denies suicidality or homicidal intent. Patient appears in no acute distress, she appears nontoxic. Patient is pleasant to talk to and is cooperative. Associated symptoms: Reports nausea and vomiting Review of Systems GI: Reports: nausea and vomiting PFS ED PFSH: Social History Smoking and tobacco status: current every day smoker Female Reproductive History: Date of last menstrual period: 03/11/21 Physical Exam Const: COMMON NORMALS: no acute distress and alert HENMT: COMMON NORMALS: normocephalic HEAD & SCALP: normocephalic Neck/C-Spine: COMMON NORMALS: full ROM and no lymphadenopathy Resp: COMMON NORMALS: normal respiratory effort and clear to auscultation bilaterally AUSCULTATION: clear to auscultation bilaterally Cardio: COMMON NORMALS: regular rate and regular rhythm RATE: regular rate RHYTHM: regular rhythm GI: COMMON NORMALS: Soft to palpation and non-tender PALPATION: Yes Soft to palpation Extremity: COMMON NORMALS: normal to inspection Neuro: SENSORIUM/ORIENTATION: Yes alert Psych: COMMON NORMALS: cooperative Skin: COMMON NORMALS: no rashes or lesions noted GENERAL SKIN EXAM: no rashes or lesions noted Course Vital Signs: Vital signs: Vital Signs Temperature 98.1 F 05/24/21 17:57 Pulse Rate 77 05/24/21 17:57 Respiratory Rate 16 05/24/21 17:57 Blood Pressure 149/82 05/24/21 17:57 Pulse Oximetry 98 05/24/21 17:57 [facility] - General Adult Medical Decision Making 30-year-old female comes in today with episode of nausea and vomiting and headache. This sometimes is common with patient's migraine symptoms. Patient did have to leave work and needs a note for work. Patient appears well and nontoxic. Patient does report some persistent symptoms over the last 2 weeks with poor appetite and difficulty sleeping. Patient denies any suicidal thoughts, homicidal thoughts, or major depression. Patient does report some increased anxiety though. Patient also reports working 40 to 60 hours every week. On exam abdomen soft nontender. Vital signs are normal. No acute distress is noted, serious illness or injury. Differential diagnosis includes gastroenteritis, migraine headache, anxiety, adjustment disorder. Patient was treated for her headache with Reglan and Ativan and dexamethasone and 500ml of fluid. Patient will be continued on Zofran and buspirone at home. Encourage patient to drink plenty of fluids and follow-up with primary care. Case management was requested to assist patient with primary care barrier to health his due to her lack of insurance. Hopefully primary care can help patient find low cost medical care. Patient reported understanding of care plan need for follow-up or return to the ER. Discharge Plan Discharge Patient Disposition: Home Clinical Impression: Anxiety Headache, migraine Qualifiers: Migraine type: unspecified Status migrainosus presence: without status migrainosus Intractability: not intractable Qualified Code(s): G43.909 - Migraine, unspecified, not intractable, without status migrainosus Condition: Stable Prescriptions: New buspirone 10 mg tablet 10 mg PO BID Qty: 60 2RF Rx Instructions: start with 1/2 tab bid for one week then increase to 1 tab bid ondansetron HCl 4 mg tablet 4 mg PO Q8H PRN (Reason: nausea and vomiting) Qty: 7 0RF No Action Lidocaine Viscous 2 % solution 5 ml mucous membrane QID PRN (Reason: oral pain) Qty: 100 0RF diclofenac potassium 25 mg capsule 25 mg PO QID PRN (Reason: pain) Qty: 10 0RF dicyclomine 10 mg Capsule 10 mg PO DAILY PRN (Reason: IBS ) 0RF Rx Instructions: x 14 days Tylenol 325 mg Tablet 325 - 650 mg PO QID PRN (Reason: Pain) 0RF ibuprofen 200 mg Tablet 200 mg PO Q6H PRN (Reason: pain/fever) 0RF albuterol sulfate 90 mcg/actuation Hfa Aerosol Inhaler 1 inh INHALATION QID PRN (Reason: Shortness Of Breath) 0RF Excedrin Migraine 250-250-65 mg Tablet 1 - 2 tab PO Q6H PRN (Reason: Migraine Headache) 0RF Women's One Daily 1 tab PO DAILY 0RF Discharge Orders: Discharge ED (Routine); Ordered 05/24/21 Ordered By: Rene Farrell Discharge Diet: Advance as tolerated Discharge Activity: Increase activity as tolerated Patient Instructions: Acute Headache (ED), Anxiety (ED) Activity Restrictions/Additional Instructions: Start buspirone 5 mg twice a day for 1 week, then increase to 10 mg twice a day and continue treatment until follow-up with primary care. This medication is for anxiety has to be taken routinely for best control of anxiety. Use ondansetron as needed for nausea. Drink plenty of water and fluids. Case management will contact you regarding primary care follow-up with consideration of your lack of insurance and options for assistance. Monitor for high fever greater than 100.4, blood in vomit or stool, or new concerns and return to the ER. 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
[2021-05-24] MEDS: LORazepam 2 mg/mL INJ 1 mL 1 MG IVP (18:48)
[2021-05-24] MEDS: sodium chloride 0.9% 500 ML 999 ML IV (18:49)
[2021-05-24] MEDS: metoclopramide 5 mg/mL SDV 2 mL IVP (18:49)
[2021-05-24] MEDS: dexamethasone 4 mg/mL INJ IVP (18:49)
[2021-05-24 19:50] VITALS: BP 148/71; PULSE 95; RESP 18; O2SAT 99
--- NOTE | 2021-05-25 14:25 | DCPLANNER ---
excellence manager had message to speak with patient about getting a primary care physician. excellence manager called phone number [phone], unable to speak with patient at this time. A voicemail was left for patient to return window caser phone call.
== END 2021-05-24 19:45 | disposition home or self-care (01) ==
PROVIDERS: Emergency Provider Nurse Practitioner Family
DX: F41.9 Anxiety disorder, unspecified (principal); G43.909 Migraine, unspecified, not intractable, without status migrainosus; F17.210 Nicotine dependence, cigarettes, uncomplicated
CPT/HCPCS: 96374; 96375; 99283; J1100; J2060; J2765; J7040

== ENCOUNTER 2021-08-27 01:26 | Inpatient (IN) | payer SELFPAY ==
[2021-08-27] VITALS (7 sets, daily range): BP systolic 98–148; BP diastolic 50–102; PULSE 18–93; RESP 16–18; TEMP 36.6–36.8; O2SAT 96–100; BMI 18.8; BMI 18.0
[2021-08-27 02:18] LABS: Amphetamines Screen Urine Negative (Negative); Barbiturates Screen Urine Negative (Negative); Benzodiazepines Screen Urine Negative (Negative); Cocaine Screen Urine Negative (Negative); Opiate Screen Urine Negative (Negative); PCP Screen Urine Negative (Negative); THC Screen Urine Positive (Negative)
[2021-08-27 02:21] LABS: HCG Qualitative Urine. Negative (Negative)
[2021-08-27 02:22] LABS: Add Urine Microscopic? YES; Bilirubin Urine Neg (Negative); Blood Urine 2+ (Negative); Glucose Urine UA Norm (Normal); Ketones Urine Negative (Negative); Leukocyte Esterase Urine Negative (Negative); Nitrate Urine Negative (Negative); Protein Urine Neg (Negative); Urine Appearance Clear (CLEAR); Urine Color Yellow (Yellow); Urobilinogen Urine Norm (Negative); pH Urine 5 (5-7)
[2021-08-27 02:23] LABS: Add Urine Culture? No; Bacteria Urine 3+ /hpf; Squamous Epithelial Cell Urine 25-40 /hpf (0-5); WBC Urine 0-4 /hpf (0-5)
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
[2021-08-27 02:46] LABS: Basophils % 0.6 %; Eosinophils # 0.1 10^3/uL (0.0-0.8); Eosinophils % 1.3 %; Hematocrit 35.6 % (37.0-47.0); Hemoglobin 11.4 g/dL (11.5-15.3); Lymphocytes # 2.1 10^3/uL (0.8-4.8); Lymphocytes % 33.6 %; Mean Corpuscular Hemoglobin 29.7 pg (28.0-34.0); Mean Corpuscular Volume 92.7 fl (81-99); Mean Platelet Volume 10.3 fL (7.4-10.4); Monocytes # 0.4 10^3/uL (0.2-0.9); Monocytes % 6.8 %; Neutrophils # 3.54 10^3/uL (1.8-7.7); Neutrophils % 57.5 %; Nucleated Red Blood Cells % 0 %; Platelet Count 261 10^3/cmm (130-400); Red Blood Count 3.84 10^6/uL (4.1-5.3); Red Cell Distribution Width 14.3 % (12.1-15.1); White Blood Count 6.2 10^3/uL (4.0-10.0)
[2021-08-27 03:13] LABS: Alanine Aminotransferase 12 U/L (0-33); Albumin Level 4.5 g/dL (3.5-5.2); Alcohol Level 60 mg/dL (0-10); Alkaline Phosphatase 72 IU/L (35-105); Anion Gap 15.5 (5-19); Aspartate Amino Transferase 20 U/L (0-32); Blood Urea Nitrogen 3 mg/dL (6-20); Carbon Dioxide 25 mmol/L (22-29); Chloride 103 mmol/L (98-107); Globulin 1.8 g/dL (1.3-4.6); Glomerular Filtration Rate 115.1 mL/min (90-130); Glucose 85 mg/dL (65-115); Osmolality Calculated 286 mOsm/kg (285-295); Potassium 3.5 mmol/L (3.5-5.1); Sodium 140 mmol/L (136-145); Total Bilirubin 0.3 mg/dL (0.15-1.2); Total Protein 6.3 g/dL (6.6-8.7)
[2021-08-27 03:19] LABS: Acetaminophen < 5.0 ug/mL (10-30); Salicylate < 0.3 mg/dL (3-10)
[2021-08-27] MEDS: nicotine 21 mg Patch 1 PATCH TRANSDERMA (03:27)
[2021-08-27] MEDS: ziprasidone 20 mg/mL SDV IM (04:40)
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
[2021-08-27] MEDS: escitalopram 10 mg Tablet PO (11:23)
[2021-08-27] MEDS: nicotine 2 mg Gum BUCCAL ×2 (11:23→17:05)
[2021-08-27] MEDS: BuSPIRONE 10 mg Tablet PO ×2 (11:23→17:05)
[2021-08-27] MEDS: risperiDONE 1 mg Tablet PO (21:17)
[2021-08-27] MEDS: ibuprofen 600 mg Tablet PO (22:45)
[2021-08-28 06:00] VITALS: BP 104/68; PULSE 58; RESP 14; TEMP 37; O2SAT 98
[2021-08-28] MEDS: escitalopram 10 mg Tablet PO (09:19)
[2021-08-28] MEDS: BuSPIRONE 10 mg Tablet PO ×2 (09:19→20:23)
[2021-08-28] MEDS: multivitamin therapeutic Tablet 1 TAB PO (09:19)
[2021-08-28] MEDS: folic acid 1 mg Tablet PO (09:19)
[2021-08-28] MEDS: thiamine 100 mg Tablet PO (09:19)
[2021-08-28] MEDS: buPROPion XL (24 HR) 150 mg Tablet PO (09:19)
[2021-08-28] MEDS: nicotine 21 mg Patch 1 PATCH TRANSDERMA (09:21)
[2021-08-28 14:00] VITALS: BP 124/84; PULSE 62; RESP 16; TEMP 37; O2SAT 100
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
[2021-08-28] MEDS: ibuprofen 800 mg tablet PO (20:22)
[2021-08-28] MEDS: risperiDONE 1 mg Tablet PO (20:23)
[2021-08-28 20:33] VITALS: BP 121/84; PULSE 70; RESP 17; TEMP 37.1; O2SAT 98
[2021-08-29 06:00] VITALS: RESP 18
[2021-08-29] MEDS: escitalopram 10 mg Tablet PO (08:44)
[2021-08-29] MEDS: buPROPion XL (24 HR) 150 mg Tablet PO (08:44)
[2021-08-29] MEDS: multivitamin therapeutic Tablet 1 TAB PO (08:44)
[2021-08-29] MEDS: folic acid 1 mg Tablet PO (08:44)
[2021-08-29] MEDS: thiamine 100 mg Tablet PO (08:44)
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
[2021-08-29] MEDS: BuSPIRONE 10 mg Tablet PO (08:53)
[2021-08-29 10:53] VITALS: RESP 18
== END 2021-08-29 12:15 | disposition home or self-care (01) | DRG 885 ==
LOC: ER 04:30 → NP 08-28 06:08
PROVIDERS: Admitting Provider Psychiatry & Neurology Psychiatry; Emergency Provider Emergency Medicine; Visit Provider Psychiatry & Neurology Psychiatry
DX: F31.9 Bipolar disorder, unspecified (principal); R45.851 Suicidal ideations; F12.90 Cannabis use, unspecified, uncomplicated; F10.129 Alcohol abuse with intoxication, unspecified; Y90.3 Blood alcohol level of 60-79 mg/100 ml; Z79.51 Long term (current) use of inhaled steroids; F17.210 Nicotine dependence, cigarettes, uncomplicated; F43.10 Post-traumatic stress disorder, unspecified; Z63.0 Problems in relationship with spouse or partner
CPT/HCPCS: 80053; 80306; 80307; 81001; 81025; 85025; 96372; 97150; 97165; 99285; J3486

== ENCOUNTER 2021-10-02 20:16 | Emergency (ER) | payer SELFPAY ==
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
[2021-10-02 20:27] VITALS: BP 132/96; PULSE 116; RESP 26; TEMP 36.9; O2SAT 98; BMI 18.0
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
[2021-10-02 20:38] LABS: HCG Qualitative Urine. Negative (Negative)
[2021-10-02] MEDS: naproxen 500 mg Tablet PO (21:03)
[2021-10-02 21:04] LABS: Basophils # 0.1 10^3/uL (0.0-0.1); Basophils % 0.8 %; Eosinophils # 0.1 10^3/uL (0.0-0.8); Eosinophils % 1.1 %; Hematocrit 38.7 % (37.0-47.0); Hemoglobin 13.3 g/dL (11.5-15.3); Lymphocytes # 2.8 10^3/uL (0.8-4.8); Lymphocytes % 28.2 %; Mean Corpuscular HGB Conc 34.4 g/dL (30.0-36.0); Mean Corpuscular Hemoglobin 30.3 pg (28.0-34.0); Mean Corpuscular Volume 88.2 fl (81-99); Mean Platelet Volume 9.9 fL (7.4-10.4); Monocytes # 0.5 10^3/uL (0.2-0.9); Monocytes % 5.1 %; Neutrophils # 6.39 10^3/uL (1.8-7.7); Neutrophils % 64.3 %; Nucleated Red Blood Cells % 0 %; Platelet Count 400 10^3/cmm (130-400); Red Blood Count 4.39 10^6/uL (4.1-5.3); Red Cell Distribution Width 13.7 % (12.1-15.1)
[2021-10-02 21:22] LABS: Amphetamines Screen Urine Negative (Negative); Barbiturates Screen Urine Negative (Negative); Benzodiazepines Screen Urine Negative (Negative); Cocaine Screen Urine Negative (Negative); Opiate Screen Urine Negative (Negative); PCP Screen Urine Negative (Negative); THC Screen Urine Positive (Negative)
[2021-10-02 21:26] LABS: Alanine Aminotransferase 21 U/L (0-33); Albumin Level 4.8 g/dL (3.5-5.2); Alcohol Level 171 mg/dL (0-10); Alkaline Phosphatase 95 IU/L (35-105); Anion Gap 22.8 (5-19); Aspartate Amino Transferase 22 U/L (0-32); Blood Urea Nitrogen 12 mg/dL (6-20); Calcium 9.2 mg/dL (8.5-10.5); Carbon Dioxide 18 mmol/L (22-29); Chloride 104 mmol/L (98-107); Globulin 2.6 g/dL (1.3-4.6); Glomerular Filtration Rate 82.6 mL/min (90-130); Glucose 89 mg/dL (65-115); Osmolality Calculated 291 mOsm/kg (285-295); Potassium 3.8 mmol/L (3.5-5.1); Sodium 141 mmol/L (136-145); Total Bilirubin 0.2 mg/dL (0.15-1.2); Total Protein 7.4 g/dL (6.6-8.7)
[2021-10-02 21:27] LABS: Acetaminophen < 5.0 ug/mL (10-30); Salicylate < 0.3 mg/dL (3-10)
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
[2021-10-02 22:02] VITALS: BP 132/96; PULSE 97; RESP 20; TEMP 36.9; O2SAT 98
== END 2021-10-02 22:04 | disposition home or self-care (01) ==
PROVIDERS: Emergency Provider Emergency Medicine
DX: F10.129 Alcohol abuse with intoxication, unspecified (principal); Y90.6 Blood alcohol level of 120-199 mg/100 ml; S40.012A Contusion of left shoulder, initial encounter; X58.XXXA Exposure to other specified factors, initial encounter; F17.200 Nicotine dependence, unspecified, uncomplicated
CPT/HCPCS: 71045; 72170; 73030; 73060; 80053; 80306; 80307; 81025; 85025; 99283

== ENCOUNTER 2021-10-25 00:33 | Emergency (ER) | payer SELFPAY ==
[2021-10-25 00:33] VITALS: PULSE 93; RESP 22; TEMP 36.8; O2SAT 100; BMI 20.5
--- NOTE | 2021-10-25 00:37 | ED_ITS ---
HPI - Alcohol General: Chief Complaint: Psychiatric Symptoms Stated Complaint: psych eval Time Seen by Provider: 10/25/21 00:33 Source: patient, EMS and police Mode of arrival: EMS Limitations: no limitations History of Present Illness: 31-year-old female who is well-known to the ER has a history of chronic alcoholism. States she is drinking heavily tonight and her mom was not paying attention to her so she grabbed a knife and stated that she was going to cut herself. Her mother called police and EMS concerned that she is got a try to kill herself patient adamantly denies being suicidal or homic idal she states she is doing this try to get attention. She denies any worsening improving factors. Associated symptoms: Reports depression; Deny abdominal pain, nausea or vomiting Review of Systems Const: Denies: fever(s), chills, body aches or change in appetite Eyes: Denies: blurry vision or eye discomfort ENMT: Denies: throat pain or dental pain Card: Denies: chest pain Resp: Denies: dyspnea GI: Denies: abdominal pain, nausea, vomiting or diarrhea : Denies: dysuria Musc: Denies: neck pain or back pain Skin/Breast: Denies: rash Neuro: Denies: headache(s) Psych: Reports: depression Med/Lymph: Denies: easy bruising All/Imm: Denies: urticaria PFSH ED PFSH: Medical History Bipolar disorder Social History Smoking and tobacco status: current every day smoker Female Reproductive History: Date of last menstrual period: 03/11/21 Physical Exam Const: COMMON NORMALS: patient oriented x3 and healthy appearing GENERAL APPEARANCE: odor of alcohol detected HENMT: COMMON NORMALS: normocephalic and atraumatic HEAD & SCALP: normocephalic and atraumatic Eye: COMMON NORMALS: Equal, round and reactive pupils present and EOMs intact bilaterally PUPIL: Yes Equal, round and reactive pupils present Neck/C-Spine: COMMON NORMALS: full ROM and supple Chest: COMMONS NORMALS: normal inspection of the chest and normal palpation of entire chest wall Resp: COMMON NORMALS: normal respiratory effort, No retractions, No use of accessory muscles and clear to auscultation bilaterally AUSCULTATION: clear to auscultation bilaterally Cardio: COMMON NORMALS: regular rate, regular rhythm and No murmurs present (Cardio) RATE: regular rate RHYTHM: regular rhythm GI: COMMON NORMALS: Normal to inspection, nondistended, normoactive bowel sounds present, Soft to palpation, non-tender and no masses PALPATION: Yes Soft to palpation Extremity: COMMON NORMALS: normal to inspection and full ROM Neuro: COMMON NORMALS: patient oriented x3, moves all extremities and no focal motor deficits Psych: COMMON NORMALS: mental status grossly normal, Normal thought process present and cooperative THOUGHT PROCESS: Normal thought process present Skin: COMMON NORMALS: no rashes or lesions noted and no wounds GENERAL SKIN EXAM: no rashes or lesions noted Course Vital Signs: Vital signs: Vital Signs Temperature 98.2 F 10/25/21 00:33 Pulse Rate 93 10/25/21 00:33 Respiratory Rate 22 H 10/25/21 00:33 Pulse Oximetry 100 10/25/21 00:33 [facility] - Alcohol Medical Decision Making Patient presents with alcohol intoxication along with some depression patient is now sober she is not suicidal had her evaluated by psychiatry Dr. West who agrees as well she is stable for discharge at this time she is to follow-up with her PCP and return if worsening. Lab Data : 10/25/21 00:54 10/25/21 00:54 Laboratory Results WBC 5.8 10^3/uL (4.0-10.0) 10/25/21 00:54 RBC 3.73 10^6/uL (4.1-5.3) L 10/25/21 00:54 Hgb 11.4 g/dL (11.5-15.3) L 10/25/21 00:54 Hct 32.9 % (37.0-47.0) L 10/25/21 00:54 MCV 88.2 fl (81-99) 10/25/21 00:54 MCH 30.6 pg (28.0-34.0) 10/25/21 00:54 MCHC 34.7 g/dL (30.0-36.0) 10/25/21 00:54 RDW 14.2 % (12.1-15.1) 10/25/21 00:54 Plt Count 382 10^3/cmm (130-400) 10/25/21 00:54 MPV 9.9 fL (7.4-10.4) 10/25/21 00:54 Neut % (Auto) 50.5 % 10/25/21 00:54 Lymph % (Auto) 40.1 % 10/25/21 00:54 Lucas % (Auto) 5.7 % 10/25/21 00:54 Eos % (Auto) 2.4 % 10/25/21 00:54 Baso % (Auto) 1.0 % 10/25/21 00:54 Neut # (Auto) 2.90 10^3/uL (1.8-7.7) 10/25/21 00:54 Lymph # (Auto) 2.3 10^3/uL (0.8-4.8) 10/25/21 00:54 Lucas # (Auto) 0.3 10^3/uL (0.2-0.9) 10/25/21 00:54 Eos # (Auto) 0.1 10^3/uL (0.0-0.8) 10/25/21 00:54 Baso # (Auto) 0.1 10^3/uL (0.0-0.1) 10/25/21 00:54 Nucleated RBC % (auto) 0 % 10/25/21 00:54 Nucleated RBCs # 0.0 /100WBC 10/25/21 00:54 Sodium 143 mmol/L (136-145) 10/25/21 00:54 Potassium 3.6 mmol/L (3.5-5.1) 10/25/21 00:54 Chloride 107 mmol/L (98-107) 10/25/21 00:54 Carbon Dioxide 20 mmol/L (22-29) L 10/25/21 00:54 Anion Gap 19.6 (5-19) H 10/25/21 00:54 BUN 4 mg/dL (6-20) L 10/25/21 00:54 Creatinine 0.6 mg/dL (0.5-0.9) 10/25/21 00:54 GFR Calculation 115.1 mL/min (90-130) 10/25/21 00:54 Glucose 98 mg/dL (65-115) 10/25/21 00:54 Calculated Osmolality 293 mOsm/kg (285-295) 10/25/21 00:54 Calcium 8.6 mg/dL (8.5-10.5) 10/25/21 00:54 Total Bilirubin 0.2 mg/dL (0.15-1.2) 10/25/21 00:54 AST 25 U/L (0-32) 10/25/21 00:54 ALT 17 U/L (0-33) 10/25/21 00:54 Alkaline Phosphatase 113 IU/L (35-105) H 10/25/21 00:54 Total Protein 6.7 g/dL (6.6-8.7) 10/25/21 00:54 Albumin 4.4 g/dL (3.5-5.2) 10/25/21 00:54 Globulin 2.3 g/dL (1.3-4.6) 10/25/21 00:54 Salicylates < 0.3 mg/dL (3-10) L 10/25/21 00:54 Acetaminophen < 5.0 ug/mL (10-30) L 10/25/21 00:54 Ethyl Alcohol 236 mg/dL (0-10) H 10/25/21 00:54 Discharge Plan Discharge Patient Disposition: Home Clinical Impression: Acute alcohol intoxication, Depression Condition: Stable Prescriptions: No Action hydroxyzine HCl 10 mg tablet 10 mg PO .at bedtime PRN (Reason: ANXIETY, INSOMNIA) Qty: 30 2RF dicyclomine 10 mg Capsule 10 mg PO DAILY PRN (Reason: IBS ) 0RF Rx Instructions: x 14 days albuterol sulfate 90 mcg/actuation Hfa Aerosol Inhaler 1 inh INHALATION QID PRN (Reason: Shortness Of Breath) 0RF Excedrin Migraine 250-250-65 mg Tablet 1 - 2 tab PO Q6H PRN (Reason: Migraine Headache) 0RF Women's One Daily 1 tab PO DAILY 0RF Naprosyn 500 mg tablet 500 mg PO BID PRN (Reason: pain) Qty: 20 0RF escitalopram oxalate 10 mg Tablet 10 mg PO DAILY 30 Days Qty: 30 1RF bupropion HCl 150 mg Tablet Extended Release 24 Hr 150 mg PO DAILY 30 Days Qty: 30 1RF risperidone 2 mg tablet 2 mg PO BEDTIME 30 Days Qty: 30 1RF buspirone 10 mg tablet 10 mg PO BID Qty: 60 1RF Rx Instructions: start with 1/2 tab bid for one week then increase to 1 tab bid Discharge Orders: Discharge ED (Routine); Ordered 10/25/21 Ordered By: Brian Cohen Discharge Diet: Advance as tolerated Discharge Activity: Resume usual activity Patient Instructions: Alcohol Intoxication (ED) Coding Level of Care Code ED [facility] C[facility] for [facility] Fwd Exam Comprehensive
[2021-10-25 01:03] LABS: Basophils # 0.1 10^3/uL (0.0-0.1); Eosinophils # 0.1 10^3/uL (0.0-0.8); Eosinophils % 2.4 %; Hematocrit 32.9 % (37.0-47.0); Hemoglobin 11.4 g/dL (11.5-15.3); Lymphocytes # 2.3 10^3/uL (0.8-4.8); Lymphocytes % 40.1 %; Mean Corpuscular HGB Conc 34.7 g/dL (30.0-36.0); Mean Corpuscular Hemoglobin 30.6 pg (28.0-34.0); Mean Corpuscular Volume 88.2 fl (81-99); Mean Platelet Volume 9.9 fL (7.4-10.4); Monocytes # 0.3 10^3/uL (0.2-0.9); Monocytes % 5.7 %; Neutrophils % 50.5 %; Nucleated Red Blood Cells % 0 %; Platelet Count 382 10^3/cmm (130-400); Red Blood Count 3.73 10^6/uL (4.1-5.3); Red Cell Distribution Width 14.2 % (12.1-15.1); White Blood Count 5.8 10^3/uL (4.0-10.0)
[2021-10-25 01:22] LABS: Alanine Aminotransferase 17 U/L (0-33); Albumin Level 4.4 g/dL (3.5-5.2); Alcohol Level 236 mg/dL (0-10); Alkaline Phosphatase 113 IU/L (35-105); Anion Gap 19.6 (5-19); Aspartate Amino Transferase 25 U/L (0-32); Blood Urea Nitrogen 4 mg/dL (6-20); Calcium 8.6 mg/dL (8.5-10.5); Carbon Dioxide 20 mmol/L (22-29); Chloride 107 mmol/L (98-107); Globulin 2.3 g/dL (1.3-4.6); Glomerular Filtration Rate 115.1 mL/min (90-130); Glucose 98 mg/dL (65-115); Osmolality Calculated 293 mOsm/kg (285-295); Potassium 3.6 mmol/L (3.5-5.1); Sodium 143 mmol/L (136-145); Total Bilirubin 0.2 mg/dL (0.15-1.2); Total Protein 6.7 g/dL (6.6-8.7)
[2021-10-25 01:23] LABS: Acetaminophen < 5.0 ug/mL (10-30); Salicylate < 0.3 mg/dL (3-10)
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
[2021-10-25 05:56] VITALS: BP 139/81; PULSE 79; RESP 18; TEMP 36.7; O2SAT 99
== END 2021-10-25 05:59 | disposition home or self-care (01) ==
PROVIDERS: Emergency Provider Emergency Medicine
DX: F10.229 Alcohol dependence with intoxication, unspecified (principal); Y90.7 Blood alcohol level of 200-239 mg/100 ml; F32.A Depression, unspecified; F43.10 Post-traumatic stress disorder, unspecified; F41.9 Anxiety disorder, unspecified; R45.851 Suicidal ideations; Z62.820 Parent-biological child conflict
CPT/HCPCS: 80053; 80307; 85025; 99283; Q3014

== ENCOUNTER 2021-12-04 23:57 | Emergency (ER) | payer SELFPAY ==
[2021-12-05 00:01] VITALS: BP 112/79; PULSE 90; RESP 18; TEMP 36.6; O2SAT 98; BMI 19.7
[2021-12-05 00:02] VITALS: O2SAT 99
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
--- NOTE | 2021-12-05 00:15 | PC.NURSE ---
blood drawn from left ac per policy, tolerated well, taken to lab.
--- NOTE | 2021-12-05 00:23 | PC.NURSE ---
patient taken to ct at this time.
[2021-12-05 00:30] VITALS: BP 112/79; PULSE 92; RESP 20; O2SAT 96
--- NOTE | 2021-12-05 00:30 | PC.NURSE ---
report given to delaney quiroz, no longer primary nurse of this patient.
[2021-12-05 00:46] LABS: Basophils % 0.6 %; Eosinophils # 0.2 10^3/uL (0.0-0.8); Eosinophils % 2.7 %; Hematocrit 34.9 % (37.0-47.0); Hemoglobin 11.2 g/dL (11.5-15.3); Lymphocytes # 3.7 10^3/uL (0.8-4.8); Lymphocytes % 52.7 %; Mean Corpuscular HGB Conc 32.1 g/dL (30.0-36.0); Mean Corpuscular Hemoglobin 29.9 pg (28.0-34.0); Mean Corpuscular Volume 93.1 fl (81-99); Mean Platelet Volume 10.5 fL (7.4-10.4); Monocytes # 0.5 10^3/uL (0.2-0.9); Monocytes % 7.4 %; Neutrophils # 2.53 10^3/uL (1.8-7.7); Nucleated Red Blood Cells % 0 %; Platelet Count 236 10^3/cmm (130-400); Red Blood Count 3.75 10^6/uL (4.1-5.3); Red Cell Distribution Width 15.1 % (12.1-15.1)
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
[2021-12-05 01:17] LABS: Alanine Aminotransferase 14 U/L (0-33); Albumin Level 4.4 g/dL (3.5-5.2); Alcohol Level 235 mg/dL (0-10); Alkaline Phosphatase 86 U/L (35-105); Anion Gap 19.9 (5-19); Aspartate Amino Transferase 21 U/L (0-32); Blood Urea Nitrogen 5 mg/dL (6-20); Calcium 8.7 mg/dL (8.5-10.5); Carbon Dioxide 19 mmol/L (22-29); Chloride 105 mmol/L (98-107); Globulin 2.1 g/dL (1.3-4.6); Glomerular Filtration Rate 115.1 mL/min (90-130); Glucose 107 mg/dL (65-115); Osmolality Calculated 290 mOsm/kg (285-295); Sodium 141 mmol/L (136-145); Total Bilirubin 0.2 mg/dL (0.15-1.2); Total Protein 6.5 g/dL (6.6-8.7)
[2021-12-05 01:31] LABS: Acetaminophen < 5.0 ug/mL (10-30); Potassium 2.9 mmol/L (3.5-5.1); Salicylate < 0.3 mg/dL (3-10)
--- NOTE | 2021-12-05 01:32 | PC.NURSE ---
K+ 2.[address] Cohen
[2021-12-05 01:36] VITALS: BP 119/76; PULSE 90; RESP 14
[2021-12-05 01:50] VITALS: BP 119/76; PULSE 90; RESP 14
--- NOTE | 2021-12-12 13:20 | PC.NURSE ---
6 david removed from left side of head (scalp). Edges are well approximated and there are no signs of infection.
== END 2021-12-05 01:52 | disposition home or self-care (01) ==
PROVIDERS: Emergency Provider Emergency Medicine
DX: F10.129 Alcohol abuse with intoxication, unspecified (principal); Y90.7 Blood alcohol level of 200-239 mg/100 ml; S01.01XA Laceration without foreign body of scalp, initial encounter; W22.8XXA Striking against or struck by other objects, initial encounter; F17.210 Nicotine dependence, cigarettes, uncomplicated
CPT/HCPCS: 12002; 70450; 80053; 80307; 85025; 99285

== ENCOUNTER 2021-12-28 01:21 | Inpatient (IN) | payer SELFPAY ==
[2021-12-28] VITALS (9 sets, daily range): BP systolic 99–132; BP diastolic 53–78; PULSE 62–102; RESP 16–20; TEMP 36.9–37.1; O2SAT 94–99; BMI 26.5
--- NOTE | 2021-12-28 01:24 | ECG_ITS ---
[facility] Test Date: 2021-12-28 Pat Name: Taniya Yun Department: Room: Gender: Female University Relations Director: : 1990 Requested By: Brian Cohen Order Number: [id number] Elizabeth MD: Angelo Patel M.D. Measurements Intervals [place] Rate: 101 P: 38 UT: 147 QRS: 86 QRSD: 90 T: 11 QT: 344 QTc: 447 Interpretive Statements SINUS TACHYCARDIA NONSPECIFIC ST & T-WAVE ABNORMALITY No previous ECG available for comparison Electronically Signed On 12-29-2021 14:36:30 CDT by Angelo Patel M.D. [email or web address]
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
[2021-12-28 01:55] LABS: Basophils # 0.1 10^3/uL (0.0-0.1); Basophils % 0.7 %; Eosinophils # 0.3 10^3/uL (0.0-0.8); Eosinophils % 2.3 %; Hemoglobin 11.7 g/dL (11.5-15.3); Lymphocytes # 7.4 10^3/uL (0.8-4.8); Lymphocytes % 63.7 %; Mean Corpuscular HGB Conc 31.6 g/dL (30.0-36.0); Mean Corpuscular Hemoglobin 30.1 pg (28.0-34.0); Mean Corpuscular Volume 95.1 fl (81-99); Mean Platelet Volume 10.5 fL (7.4-10.4); Monocytes # 0.7 10^3/uL (0.2-0.9); Monocytes % 5.8 %; Neutrophils # 3.17 10^3/uL (1.8-7.7); Neutrophils % 27.2 %; Nucleated Red Blood Cells % 0 %; Platelet Count 364 10^3/cmm (130-400); Red Blood Count 3.89 10^6/uL (4.1-5.3); White Blood Count 11.6 10^3/uL (4.0-10.0)
--- NOTE | 2021-12-28 02:20 | PC.NURSE ---
Assisted pt to bedside commode for urine sample. Covid swab collected. Pt tolerated well and was cooperative. Pt assisted back to bed. Downey provided.
[2021-12-28 02:29] LABS: Alanine Aminotransferase 26 U/L (0-33); Albumin Level 4.4 g/dL (3.5-5.2); Alcohol Level 202 mg/dL (0-10); Alkaline Phosphatase 105 U/L (35-105); Anion Gap 27.2 (5-19); Aspartate Amino Transferase 20 U/L (0-32); Blood Urea Nitrogen 8 mg/dL (6-20); Calcium 8.6 mg/dL (8.5-10.5); Carbon Dioxide 13 mmol/L (22-29); Chloride 109 mmol/L (98-107); Globulin 2.2 g/dL (1.3-4.6); Glomerular Filtration Rate 72.1 mL/min (90-130); Glucose 109 mg/dL (65-115); Osmolality Calculated 301 mOsm/kg (285-295); Potassium 3.2 mmol/L (3.5-5.1); Sodium 146 mmol/L (136-145); Total Bilirubin 0.2 mg/dL (0.15-1.2); Total Protein 6.6 g/dL (6.6-8.7)
[2021-12-28 02:30] LABS: Acetaminophen < 5.0 ug/mL (10-30); Salicylate < 0.3 mg/dL (3-10)
[2021-12-28 02:38] LABS: HCG Qualitative Urine. Negative (Negative)
[2021-12-28 02:47] LABS: Amphetamines Screen Urine Positive (Negative); Barbiturates Screen Urine Negative (Negative); Benzodiazepines Screen Urine Negative (Negative); Cocaine Screen Urine Negative (Negative); Opiate Screen Urine Negative (Negative); PCP Screen Urine Negative (Negative); THC Screen Urine Positive (Negative)
[2021-12-28 03:32] LABS: SARS Covid-2 Antigen Negative (Negative)
--- NOTE | 2021-12-28 05:38 | PC.NURSE ---
Pt sitting up on bed. Says IV is hurting. IV dc'd at this time. Pt is alert and oriented. Denies HI/SI at this time. Ice water provided.
--- NOTE | 2021-12-28 06:32 | PC.NURSE ---
Pt requesting to speak to . Dr. Maradiaga at bedside with this RN. Pt requesting to go home. made pt aware that because of her actions last night, she is on a hold and would not be able to leave. Pt began crying and yelling, but not at staff. Pt remained on her bed during the interaction. Pt belongings removed from room which included her clothes and her phone. Pt changed into green scrubs. Dangerous items removed from room. Pt remains 1:1. Pt did cooperate when asked to change.
[2021-12-28] MEDS: OLANZapine 5 mg ODT PO (06:51)
[2021-12-28] MEDS: nicotine 21 mg Patch 1 PATCH TRANSDERMA (06:53)
--- NOTE | 2021-12-28 07:15 | PC.NURSE ---
WHILE AT BEDSIDE PT IS IN NAD. PT IS CALM. PT HAS SITTER AT BEDSIDE. PT DENIES ANY NEEDS AT THIS TIME.
[2021-12-28] MEDS: folic acid 1 mg Tablet PO (08:52)
[2021-12-28] MEDS: thiamine 100 mg Tablet PO (08:53)
[2021-12-28] MEDS: multivitamin therapeutic Tablet 1 TAB PO (08:53)
--- NOTE | 2021-12-28 10:00 | PC.NURSE ---
WHILE AT DOORWAY PT IS RESTING QUIETLY WITH EYES CLOSED PRONE IN BED. PT HAS GOOD CHEST RISE AND FALL.
--- NOTE | 2021-12-28 12:49 | PC.NURSE ---
WHILE AT DOORWAY PT IS RESTING QUIETLY WITH EYES CLOSED SUPINE IN BED. PT HAS GOOD CHEST RISE AND FALL.
--- NOTE | 2021-12-28 16:26 | PC.NURSE ---
report given to grisel quiroz in npu.
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
[2021-12-28] MEDS: risperiDONE 2 mg Tablet PO (20:48)
[2021-12-28] MEDS: hyDROXYzine 25 mg Capsule 50 MG PO (20:48)
[2021-12-29 06:00] VITALS: BP 115/68; PULSE 64; RESP 18; TEMP 36.4; O2SAT 98
[2021-12-29] MEDS: folic acid 1 mg Tablet PO (08:48)
[2021-12-29] MEDS: multivitamin therapeutic Tablet 1 TAB PO (08:48)
[2021-12-29] MEDS: thiamine 100 mg Tablet PO (08:48)
[2021-12-29] MEDS: buPROPion XL (24 HR) 150 mg Tablet PO (08:48)
[2021-12-29] MEDS: escitalopram 10 mg Tablet PO (08:49)
--- NOTE | 2021-12-29 09:01 | PC.NURSE ---
Nursing Assessment Patient sitting calmly in bed. Her right eye is still swollen and bruised. She rates pain for this at a 7 on a 0-10 scale. RN put in an order for ibuprofen. Patient slept well last night. Patient denies suicidal and homicidal ideations. Patient denies any auditory or visual hallucinations. Also states she isn't experiencing any anxiety before. Last bowel movement was yesterday on 12/28/21.
[2021-12-29 14:00] VITALS: BP 119/84; PULSE 79; RESP 20; TEMP 37.1; O2SAT 98
[2021-12-29] MEDS: ibuprofen 600 mg Tablet PO (15:13)
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
--- NOTE | 2021-12-29 18:29 | PC.NURSE ---
PRN MEDS Patient came to nurse's station stating she was in pain from her right eye being VERY swollen and mild swelling on forehead. Administered ibuprofen at 1513.
[2021-12-29 19:17] VITALS: BP 119/79; PULSE 72; RESP 16; TEMP 36.8; O2SAT 98
[2021-12-29] MEDS: risperiDONE 2 mg Tablet PO (21:07)
[2021-12-29] MEDS: hyDROXYzine 25 mg Capsule 50 MG PO (21:11)
--- NOTE | 2021-12-29 22:41 | PC.NURSE ---
PRN MED PT GIVEN 50MG VISTARIL FOR STATED ANXIETY, WILL CONTINUE TO MONITOR.
[2021-12-30 06:44] VITALS: BP 115/64; PULSE 51; RESP 14; TEMP 36.5; O2SAT 98
[2021-12-30] MEDS: ibuprofen 600 mg Tablet PO (08:58)
[2021-12-30] MEDS: thiamine 100 mg Tablet PO (08:59)
[2021-12-30] MEDS: folic acid 1 mg Tablet PO (08:59)
[2021-12-30] MEDS: multivitamin therapeutic Tablet 1 TAB PO (08:59)
[2021-12-30] MEDS: buPROPion XL (24 HR) 150 mg Tablet PO (08:59)
[2021-12-30] MEDS: escitalopram 10 mg Tablet PO (08:59)
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
[2021-12-30 12:06] VITALS: BP 115/64; PULSE 51; RESP 14; TEMP 36.5; O2SAT 98
== END 2021-12-30 13:10 | disposition home or self-care (01) | DRG 882 ==
LOC: ER 01:37 → NP 16:34
PROVIDERS: Admitting Provider Psychiatry & Neurology Psychiatry; Emergency Provider Emergency Medicine; Visit Provider Psychiatry & Neurology Psychiatry
DX: F43.10 Post-traumatic stress disorder, unspecified (principal); R45.851 Suicidal ideations; F32.A Depression, unspecified; F41.9 Anxiety disorder, unspecified; F10.229 Alcohol dependence with intoxication, unspecified; Y90.7 Blood alcohol level of 200-239 mg/100 ml; Z62.810 Personal history of physical and sexual abuse in childhood; Z62.820 Parent-biological child conflict
CPT/HCPCS: 80053; 80306; 80307; 81025; 85025; 87426; 93005; 96372; 97150; 97165; 99285; J3411

== ENCOUNTER 2022-03-22 01:29 | Emergency (ER) | payer SELFPAY ==
[2022-03-22 01:33] VITALS: BP 144/86; PULSE 98; RESP 17; TEMP 36.4; O2SAT 99; BMI 26.5
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
[2022-03-22 03:32] LABS: Basophils # 0.1 10^3/uL (0.0-0.1); Basophils % 0.5 %; Eosinophils % 0.3 %; Hematocrit 38.9 % (37.0-47.0); Hemoglobin 12.7 g/dL (11.5-15.3); Lymphocytes # 1.7 10^3/uL (0.8-4.8); Lymphocytes % 14.7 %; Mean Corpuscular HGB Conc 32.6 g/dL (30.0-36.0); Mean Platelet Volume 10.2 fL (7.4-10.4); Monocytes # 0.5 10^3/uL (0.2-0.9); Monocytes % 4.5 %; Neutrophils # 9.29 10^3/uL (1.8-7.7); Neutrophils % 79.1 %; Nucleated Red Blood Cells % 0 %; Platelet Count 310 10^3/cmm (130-400); Red Blood Count 4.23 10^6/uL (4.1-5.3); Red Cell Distribution Width 14.2 % (12.1-15.1); White Blood Count 11.7 10^3/uL (4.0-10.0)
[2022-03-22 03:48] LABS: Acetaminophen < 5.0 ug/mL (10-30); Alanine Aminotransferase 13 U/L (0-33); Albumin Level 4.4 g/dL (3.5-5.2); Alcohol Level 121 mg/dL (0-10); Alkaline Phosphatase 92 U/L (35-105); Anion Gap 15.8 (5-19); Aspartate Amino Transferase 17 U/L (0-32); Blood Urea Nitrogen 8 mg/dL (6-20); Calcium 9.1 mg/dL (8.5-10.5); Carbon Dioxide 24 mmol/L (22-29); Chloride 106 mmol/L (98-107); Globulin 2.5 g/dL (1.3-4.6); Glomerular Filtration Rate 115.1 mL/min (90-130); Glucose 111 mg/dL (65-115); Osmolality Calculated 293 mOsm/kg (285-295); Potassium 3.8 mmol/L (3.5-5.1); Salicylate 0.8 mg/dL (3-10); Sodium 142 mmol/L (136-145); Total Bilirubin 0.2 mg/dL (0.15-1.2); Total Protein 6.9 g/dL (6.6-8.7)
[2022-03-22 04:39] VITALS: BP 118/72; PULSE 76; RESP 16; O2SAT 99
== END 2022-03-22 04:40 | disposition home or self-care (01) ==
PROVIDERS: Emergency Provider Emergency Medicine
DX: Z00.00 Encounter for general adult medical examination without abnormal findings (principal); F10.129 Alcohol abuse with intoxication, unspecified; Y90.5 Blood alcohol level of 100-119 mg/100 ml
CPT/HCPCS: 80053; 80307; 85025; 99283

== ENCOUNTER 2022-03-23 13:09 | Emergency (ER) | payer SELFPAY ==
[2022-03-23 13:13] VITALS: BP 132/86; PULSE 90; RESP 14; TEMP 36.8; O2SAT 98; BMI 25.7
--- NOTE | 2022-03-23 13:45 | W.ED.PSYCHS ---
HPI - Psych General: Chief Complaint: Psychiatric Symptoms Stated Complaint: psych evaluation Time Seen by Provider: 03/23/22 13:38 Source: patient Mode of arrival: ambulatory History of Present Illness: 31-year-old female presents to the emergency room with acute anxiety. She was arrested a few days ago and tried to hang herself. She does have a ligature fadi on the right side of her neck. She states she was very upset because been arrested but she is not suicidal at this time she stopped taking all of her medications and she is very worried.. She tells me that the chemist helper told her as well as her bill bondsman that she had to be placed on a 96-hour hold. Initially her mother is present and wants us to review paperwork which is essentially summons for charges for which she was arrested. There is no outstanding 96-hour hold present. Patient states she is not suicidal now but thinks that she may be suicidal in the future. She denies any homicidal ideation she has no auditory visual hallucinations. She tells me that she must be 96 because she has nowhere else to go and otherwise they will put her in longterm. complaint: suicidal ideation Onset (ago): day(s) Duration: resolved prior to arrival History of same: Yes Relieving factors: none Exacerbating factors: none Associated psychiatric symptoms: depression and suicidal ideation Associated symptoms: Reports depression and suicidal ideation; Deny auditory hallucinations, visual hallucinations, delusions, homicidal ideation or racing thoughts Treatments prior to arrival: none If self harm: admits thoughts of self harm Review of Systems Const: Denies: fever(s), chills, body aches, change in appetite, fatigue or malaise ENMT: Denies: throat pain, ear or mastoid pain, nasal discharge or nasal congestion Card: Denies: chest pain, palpitations, edema, dyspnea on exertion or orthopnea Resp: Denies: dyspnea, productive cough or non-productive cough GI: Denies: abdominal pain, nausea, vomiting, hematemesis, coffee ground emesis, diarrhea, constipation, bloating, hematochezia or melena : Denies: flank pain, difficulty voiding, dysuria, urinary frequency or urinary urgency Skin/Breast: Denies: rash or pruritus Psych: Reports: depression and suicidal ideation; Denies: visual hallucinations, auditory hallucinations or homicidal ideation [facility] ED PFSH: Medical History Bipolar disorder Social History Smoking and tobacco status: current every day smoker Female Reproductive History: Date of last menstrual period: 11/24/21 Physical Exam Const: GENERAL APPEARANCE: cooperative and comfortable ORIENTATION/CONSCIOUSNESS: Yes awake, Yes oriented to person, Yes oriented to place and Yes oriented to time HENMT: COMMON NORMALS: normocephalic and atraumatic HEAD & SCALP: normocephalic and atraumatic Resp: COMMON NORMALS: normal respiratory effort, No retractions, No use of accessory muscles and clear to auscultation bilaterally AUSCULTATION: clear to auscultation bilaterally Cardio: COMMON NORMALS: regular rate, regular rhythm and No murmurs present (Cardio) RATE: regular rate RHYTHM: regular rhythm Extremity: COMMON NORMALS: normal to inspection, capillary refill normal, no clubbing, cyanosis or edema, no calf tenderness and no pedal edema Neuro: SENSORIUM/ORIENTATION: Yes oriented to person, Yes oriented to place and Yes oriented to time Psych: THOUGHT CONTENT: No delusions Skin: COMMON NORMALS: no rashes or lesions noted GENERAL SKIN EXAM: no rashes or lesions noted Course Vital Signs: Vital signs: Vital Signs Temperature 98.3 F 03/23/22 13:13 Pulse Rate 90 03/23/22 13:13 Respiratory Rate 14 03/23/22 13:13 Blood Pressure 132/86 03/23/22 13:13 Pulse Oximetry 98 03/23/22 13:13 Oxygen Delivery Me thod 03/23/22 13:13 [facility] - Psych Medical Decision Making Patient has been hospitalized here in the past Dr. West is familiar with this patient he is consulted with her in the emergency room several times and has admitted her in the past. Given her presentation he feels it is appropriate to restart her medication and refer her back to outpatient therapy. Dr. West and I discussed the case and reviewed her chart and her current presentation we both concur. At time of discharge patient reiterates that she is not currently homicidal or suicidal but that she may become so in the future. Advised to return if she has any suicidal homicidal thoughts. Patient agrees. Medical Records I reviewed the patient's medical records. Lab Data I reviewed the patient's lab results. 12/02/22 14:28 03/23/22 14:28 Laboratory Results WBC 8.4 10^3/uL (4.0-10.0) 03/23/22 14: RBC 4.41 10^6/uL (4.1-5.3) 03/23/22 14:28 Hgb 13.3 g/dL (11.5-15.3) 03/23/22 14:28 Hct 43.1 % (37.0-47.0) 03/23/22 14: MCV 97.7 fl (81-99) 03/23/22 14: MCH 30.2 pg (28.0-34.0) 03/23/22 14: MCHC 30.9 g/dL (30.0-36.0) 03/23/22 14: RDW 14.4 % (12.1-15.1) 03/23/22 14:28 Plt Count 296 10^3/cmm (130-400) 03/23/22 14: MPV 10.1 fL (7.4-10.4) 03/23/22 14:28 Neut % (Auto) 71.3 % 03/23/22 14: Lymph % (Auto) 22.3 % 03/23/22 14:28 [place] % (Auto) 5.1 % 03/23/22 14:28 Eos % (Auto) 0.6 % 03/23/22 14:28 Baso % (Auto) 0.5 % 03/23/22 14:28 Neut # (Auto) 5.99 10^3/uL (1.8-7.7) 03/23/22 14:28 Lymph # (Auto) 1.9 10^3/uL (0.8-4.8) 03/23/22 14:28 [place] # (Auto) 0.4 10^3/uL (0.2-0.9) 03/23/22 14: Eos # (Auto) 0.1 10^3/uL (0.0-0.8) 03/23/22 14:28 Baso # (Auto) 0.0 10^3/uL (0.0-0.1) 03/23/22 14:28 Nucleated RBC % (auto) 0 % 03/23/22 14:28 Nucleated RBCs # 0.0 /100WBC 03/23/22 14:28 Sodium 138 mmol/L (136-145) 03/23/22 14:28 Potassium 3.6 mmol/L (3.5-5.1) 03/23/22 14:28 Chloride 101 mmol/L (98-107) 03/23/22 14:28 Carbon Dioxide 26 mmol/L (22-29) 03/23/22 14:28 Anion Gap 14.6 (5-19) 03/23/22 14:28 BUN 10 mg/dL (6-20) 03/23/22 14:28 Creatinine 0.7 mg/dL (0.5-0.9) 03/23/22 14:28 GFR Calculation 96.4 mL/min (90-130) 03/23/22 14:28 Glucose 99 mg/dL (65-115) 03/23/22 14:28 Calculated Osmolality 285 mOsm/kg (285-295) 03/23/22 14:28 Calcium 9.5 mg/dL (8.5-10.5) 03/23/22 14:28 Total Bilirubin 0.5 mg/dL (0.15-1.2) 03/23/22 14:28 AST 22 U/L (0-32) 03/23/22 14:28 ALT 13 U/L (0-33) 03/23/22 14:28 Alkaline Phosphatase 101 U/L (35-105) 03/23/22 14:28 Total Protein 7.2 g/dL (6.6-8.7) 03/23/22 14:28 Albumin 4.3 g/dL (3.5-5.2) 03/23/22 14:28 Globulin 2.9 g/dL (1.3-4.6) 03/23/22 14:28 HCG, Qual Negative (Negative) 03/23/22 14:28 Urine Opiates Screen Negative ng/mL (Negative) 03/23/22 15:24 Ur Barbiturates Screen Negative ng/mL (Negative) 03/23/22 15:24 Ur Phencyclidine Scrn Negative ng/mL (Negative) 03/23/22 15:24 Ur Amphetamines Screen Negative ng/mL (Negative) 03/23/22 15:24 U Benzodiazepines Scrn Negative ng/mL (Negative) 03/23/22 15:24 Urine Cocaine Screen Negative ng/mL (Negative) 03/23/22 15:24 U Marijuana (THC) Screen Positive ng/mL (Negative) H 03/23/22 15:24 Ethyl Alcohol < 10 mg/dL (0-10) 03/23/22 14:28 Discharge Plan Discharge Patient Disposition: Home Clinical Impression: Anxiety, Bipolar disorder, Depression Condition: Stable Prescriptions: New bupropion HCl 150 mg tablet extended release 24 hr 150 mg PO DAILY Qty: 30 0RF escitalopram oxalate 10 mg tablet 10 mg PO DAILY Qty: 30 0RF Risperdal 2 mg tablet 2 mg PO .QHS Qty: 30 0RF hydroxyzine HCl 25 mg tablet 25 mg PO Q8H PRN (Reason: anxiety) Qty: 14 0RF Discontinued risperidone 2 mg tablet 2 mg PO BEDTIME 30 Days Qty: 30 1RF escitalopram oxalate 10 mg Tablet 10 mg PO DAILY 30 Days Qty: 30 1RF bupropion HCl 150 mg Tablet Extended Release 24 Hr 150 mg PO DAILY 30 Days Qty: 30 1RF ibuprofen 200 mg Tablet 800 mg PO Q6H PRN (Reason: Pain) hydroxyzine HCl 10 mg tablet 10 mg PO BEDTIME PRN (Reason: Anxiety) No Action albuterol sulfate 90 mcg/actuation Hfa Aerosol Inhaler 2 puff INHALATION QID PRN (Reason: Shortness Of Breath) Excedrin Migraine 250-250-65 mg Tablet 1 - 2 tab PO Q6H PRN (Reason: Migraine Headache) Discharge Orders: Discharge ED (Routine); Ordered 03/23/22 Ordered By: Ad Maradiaga Discharge Diet: Usual diet Discharge Activity: Resume usual activity Patient Instructions: Opioid Safety, Pain Management Activity Restrictions/Additional Instructions: You were seen for anxiety in the emergency room. Discussed your case with the on-call psychiatrist we recommends that we restart your medications and you follow-up at [facility]. Case management will make arrangements for you to follow-up there. 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
--- NOTE | 2022-03-23 13:51 | PC.PHAR ---
pts mother verified pts medications-states the pt has been out of her medications for about 2 weeks-notes are made in pharmacy comments with last fill dates most medications entered were last filled 01/01/22 30d/s [facility] pharmacy states rxs have refills
[2022-03-23 14:37] LABS: Basophils % 0.5 %; Eosinophils # 0.1 10^3/uL (0.0-0.8); Eosinophils % 0.6 %; Hematocrit 43.1 % (37.0-47.0); Hemoglobin 13.3 g/dL (11.5-15.3); Lymphocytes # 1.9 10^3/uL (0.8-4.8); Lymphocytes % 22.3 %; Mean Corpuscular HGB Conc 30.9 g/dL (30.0-36.0); Mean Corpuscular Hemoglobin 30.2 pg (28.0-34.0); Mean Corpuscular Volume 97.7 fl (81-99); Mean Platelet Volume 10.1 fL (7.4-10.4); Monocytes # 0.4 10^3/uL (0.2-0.9); Monocytes % 5.1 %; Neutrophils # 5.99 10^3/uL (1.8-7.7); Neutrophils % 71.3 %; Nucleated Red Blood Cells % 0 %; Platelet Count 296 10^3/cmm (130-400); Red Blood Count 4.41 10^6/uL (4.1-5.3); Red Cell Distribution Width 14.4 % (12.1-15.1); White Blood Count 8.4 10^3/uL (4.0-10.0)
[2022-03-23 14:51] LABS: HCG, Serum Qual Negative (Negative)
[2022-03-23 14:58] LABS: Alanine Aminotransferase 13 U/L (0-33); Albumin Level 4.3 g/dL (3.5-5.2); Alcohol Level < 10 mg/dL (0-10); Alkaline Phosphatase 101 U/L (35-105); Blood Urea Nitrogen 10 mg/dL (6-20); Calcium 9.5 mg/dL (8.5-10.5); Carbon Dioxide 26 mmol/L (22-29); Chloride 101 mmol/L (98-107); Creatinine Clr Calc Pharmacy 108.3381; Globulin 2.9 g/dL (1.3-4.6); Glomerular Filtration Rate 96.4 mL/min (90-130); Glucose 99 mg/dL (65-115); Osmolality Calculated 285 mOsm/kg (285-295); Sodium 138 mmol/L (136-145); Total Bilirubin 0.5 mg/dL (0.15-1.2); Total Protein 7.2 g/dL (6.6-8.7)
[2022-03-23 14:59] LABS: Anion Gap 14.6 (5-19); Aspartate Amino Transferase 22 U/L (0-32); Potassium 3.6 mmol/L (3.5-5.1)
[2022-03-23 15:56] LABS: Amphetamines Screen Urine Negative (Negative); Barbiturates Screen Urine Negative (Negative); Benzodiazepines Screen Urine Negative (Negative); Cocaine Screen Urine Negative (Negative); Opiate Screen Urine Negative (Negative); PCP Screen Urine Negative (Negative); THC Screen Urine Positive (Negative)
[2022-03-23] MEDS: nicotine 21 mg Patch 1 PATCH TRANSDERMA (16:01)
== END 2022-03-23 16:35 | disposition home or self-care (01) ==
PROVIDERS: Emergency Provider Family Medicine
DX: F41.9 Anxiety disorder, unspecified (principal); F31.9 Bipolar disorder, unspecified; F32.A Depression, unspecified; F17.210 Nicotine dependence, cigarettes, uncomplicated
CPT/HCPCS: 36415; 80053; 80306; 80307; 84703; 85025; 99283

== ENCOUNTER 2022-03-28 11:06 | Emergency (ER) | payer SELFPAY ==
[2022-03-28 11:48] VITALS: BP 115/73; PULSE 88; RESP 16; TEMP 36.8; O2SAT 98; BMI 25.5
[2022-03-28 11:53] VITALS: BP 115/73; PULSE 88; RESP 16; TEMP 36.8; O2SAT 98
--- NOTE | 2022-03-28 11:58 | CT_ITS ---
WS: [id number] CT NECK WITH CONTRAST HISTORY: Dental abscess swelling neck, trouble swallowing TECHNIQUE: Contiguous 5 mm axial images are performed through the neck with intravenous contrast. Sag ittal and coronal reformats are also submitted. All CT scans at [facility] use at least one o f these dose optimization techniques: automated exposure control; mA and/or kV adjustment per patient size (includes targeted exams where dose is matched to clinical indication); or iterative reconstruc tion. CONTRAST: CONTRAST: Omnipaque 350; 100 mL IV. DLP: 242.38 mGy.cm COMPARISON: None available. Developing soft tissue abscess along the LEFT lateral mandibular body. This collection measures 1.6 x 3.0 cm and associated with dental caries. Most significant dental caries is within the molar. This c ollection is not well formed and probably a phlegmon at this time and does correspond to the palpable marker that was placed at the site of pain. There is a small amount of adjacent soft tissue strandin g which extends into the submental region and extends across the midline. Seen best on the lateral pr ojection is soft tissue edema along the posterior muscles of the tongue. This collection is not well formed. Additional edema extends bilaterally along the submandibular glands. Enlarged bilateral cervical chain hypervascular lymph nodes. The largest lymph node is near the LEFT mandibular angle measuring 11 x 17 mm. Bilateral cervical chain lymph nodes are most significant at l evel 1 and level 2. No compromise of the airway is identified. Visualized portions of the skull base demonstrate no abnormalities. Orbits and globes are within norm al limits. No soft tissue masses. Visualized paranasal sinuses and mastoid air cells are normal. Lung apices are clear. CT/CT neck w con* [id number] IMPRESSION: 1. Focal inflammatory collection along the LEFT lateral mandible associated wi th dental caries. Not well formed at this time. Phlegmonous collection measures 1.6 x 3.0 cm. 2. There is a large amount of soft tissue edema extending from the LEFT latera l mandible across the midline through the floor of the mouth. Small amount of f luid and edema extends along the submandibular glands bilaterally. Fluid extend s along the platysma muscle. No additional abscess. 3. Bilateral cervical chain lymph nodes, hypervascular lymph nodes at level 1 and level 2. 4. No compromise of the airway at this time.
--- NOTE | 2022-03-28 12:02 | ED_ITS ---
HPI - Dental/Oral General: Chief complaint: Dental/Oral Stated complaint: abcess tooth, swelling in throat Time Seen by Provider: 03/28/22 11:50 History of Present Illness: Patient is a 31-year-old female comes to the ED with dental abscess. Patient says several days ago she started developing pain in her left lower molars. She saw the dentist approximately 3 days ago and they put her on clindamycin. She has been taking clindamycin now for 3 days and the swelling is gotten worse and is now moved into her neck and throat area. She states that she has trouble swallowing now due to the swelling. Denies any shortness of breath or trouble breathing. She rates the pain currently an 8 out of 10. She is currently set up to see her dentist for follow-up and to have tooth removed on April 05. Associated symptoms: Denies fever(s) or odynophagia Review of Systems Const: Denies: fever(s), chills or fatigue Eyes: Denies: change in vision or eye discomfort ENMT: Reports: dental pain; Denies: throat pain, odynophagia, nasal discharge or nasal congestion Card: Denies: chest pain, palpitations, edema, swelling of feet/ankles, dyspnea on exertion or orthopnea Resp: Denies: dyspnea, productive cough or non-productive cough GI: Denies: abdominal pain, nausea, vomiting, diarrhea, constipation or hematochezia : Denies: flank pain, dysuria or hematuria Musc: Denies: neck pain, back pain or extremity swelling Skin/Breast: Denies: rash or new lesions Neuro: Denies: headache(s), numbness in extremities or weakness in extremities [facility] ED PFSH: Medical History Bipolar disorder Social History Smoking and tobacco status: current every day smoker Female Reproductive History: Date of last menstrual period: 11/24/21 Physical Exam Const: COMMON NORMALS: patient oriented x3 HENMT: COMMON NORMALS: normocephalic HEAD & SCALP: normocephalic FACE & SINUS: edema on the left mandible and submandibular and Facial tenderness on exam of face and sinuses on the left mandible and submandibular MOUTH: Normal oral and palatal mucosa present THROAT: posterior oropharynx normal and uvula midline Neck/C-Spine: COMMON NORMALS: supple GENERAL: Yes normal visual inspection Lymph: LYMPHATIC: lymphadenopathy bilateral anterior cervical multiple and tender 0.5 cm Resp: COMMON NORMALS: normal respiratory effort, No retractions, No use of accessory muscles and clear to auscultation bilaterally AUSCULTATION: clear to auscultation bilaterally Cardio: COMMON NORMALS: regular rate, regular rhythm, S1 normal heart sound present, S2 normal heart sound present, No gallops present (Cardio), No clicks present (Cardio), No murmurs present (Cardio) and Peripheral pulses 2+ throughout RATE: regular rate RHYTHM: regular rhythm HEART SOUNDS: S1 normal heart sound present and S2 normal heart sound present PERIPHERAL PULSES: Peripheral pulses 2+ throughout GI: COMMON NORMALS: Normal to inspection, nondistended, normoactive bowel sounds present, Soft to palpation, non-tender and no masses PALPATION: Yes Soft to palpation : COMMON NORMALS: Yes no CVA tenderness BLADDER/KIDNEY EXAM: Yes no CVA tenderness Back/Pelvis: COMMON NORMALS: no CVA tenderness Extremity: COMMON NORMALS: normal to inspection Neuro: COMMON NORMALS: patient oriented x3 GAIT: Yes Normal gait present Skin: GENERAL SKIN EXAM: dry skin Course Vital Signs: Vital signs: Vital Signs Temperature 98.3 F 03/28/22 11:53 Pulse Rate 81 03/28/22 14:30 Respiratory Rate 16 03/28/22 14:30 Blood Pressure 115/73 03/28/22 11:53 Pulse Oximetry 99 03/28/22 14:30 Oxygen Delivery Me thod 03/28/22 11:53 [facility] - Dental/Oral Medical Decision Making Patient is a 31-year-old female comes to the ED with dental abscess. Patient says several days ago she started developing pain in her left lower molars. She saw the dentist approximately 3 days ago and they put her on clindamycin. She has been taking clindamycin now for 3 days and the swelling is gotten worse and is now moved into her neck and throat area. She states that she has trouble swallowing now due to the swelling. Denies any shortness of breath or trouble breathing. Vitals are stable. Exam of patient shows some left mandibular left submandibular swelling. She also has some anterior neck swelling with palpable swollen lymph nodes of the anterior cervical chain. Labs were unremarkable. Given patient's difficulty swallowing CT of the neck was done to check airway and to evaluate possible abscess. CT of neck showed left lateral mandible dental caries with some focal inflammatory changes. Phlegmonous collection measuring 1.6 x 3 cm. No airway compromise at this time. Patient was given IV clindamycin and morphine for pain here in the ED. She was stable for discharge home and diagnosed with dental infection. She was discharged home with a prescription for hydrocodone for acute pain and told to continue taking her prev iously prescribed clindamycin follow-up with dentist as soon as possible. Patient understood and agreed with plan. Lab Data I reviewed the patient's lab results. 03/28/22 12:23 03/28/22 12:[address] 03/28/22 11:58 IMPRESSION: 1. Focal inflammatory collection along the LEFT lateral mandible associated with dental caries. Not well formed at this time. Phlegmonous collection measures 1.6 x 3.0 cm. 2. There is a large amount of soft tissue edema extending from the LEFT lateral mandible across the midline through the floor of the mouth. Small amount of fluid and edema extends along the submandibular glands bilaterally. Fluid extends along the platysma muscle. No additional abscess. 3. Bilateral cervical chain lymph nodes, hypervascular lymph nodes at level 1 and level 2. 4. No compromise of the airway at this time. Laboratory Results WBC 8.5 10^3/uL (4.0-10.0) 03/28/22 12: RBC 3.83 10^6/uL (4.1-5.3) L 03/28/22 12:23 Hgb 11.7 g/dL (11.5-15.3) 03/28/22 12:23 Hct 36.1 % (37.0-47.0) L 03/28/22 12:23 MCV 94.3 fl (81-99) 03/28/22 12:23 MCH 30.5 pg (28.0-34.0) 03/28/22 12: MCHC 32.4 g/dL (30.0-36.0) 03/28/22 12:23 RDW 14.8 % (12.1-15.1) 03/28/22 12:23 Plt Count 277 10^3/cmm (130-400) 03/28/22 12:23 MPV 10.5 fL (7.4-10.4) H 03/28/22 12:23 Neut % (Auto) 70.2 % 03/28/22 12:23 Lymph % (Auto) 19.2 % 03/28/22 12:23 [place] % (Auto) 7.5 % 03/28/22 12:23 Eos % (Auto) 2.2 % 03/28/22 12:23 Baso % (Auto) 0.5 % 03/28/22 12:23 Neut # (Auto) 5.98 10^3/uL (1.8-7.7) 03/28/22 12:23 Lymph # (Auto) 1.6 10^3/uL (0.8-4.8) 03/28/22 12:23 [place] # (Auto) 0.6 10^3/uL (0.2-0.9) 03/28/22 12:23 Eos # (Auto) 0.2 10^3/uL (0.0-0.8) 03/28/22 12:23 Baso # (Auto) 0.0 10^3/uL (0.0-0.1) 03/28/22 12:23 Nucleated RBC % (auto) 0 % 03/28/22 12: Nucleated RBCs # 0.0 /100WBC 03/28/22 12:23 Sodium 137 mmol/L (136-145) 03/28/22 12:23 Potassium 4.0 mmol/L (3.5-5.1) 03/28/22 12:23 Chloride 101 mmol/L (98-107) 03/28/22 12:23 Carbon Dioxide 27 mmol/L (22-29) 03/28/22 12:23 Anion Gap 13.0 (5-19) 03/28/22 12:23 BUN 3 mg/dL (6-20) L 03/28/22 12:23 Creatinine 0.6 mg/dL (0.5-0.9) 03/28/22 12:23 GFR Calculation 115.1 mL/min (90-130) 03/28/22 12:23 Glucose 82 mg/dL (65-115) 03/28/22 12:23 Calculated Osmolality 280 mOsm/kg (285-295) L 03/28/22 12:23 Calcium 9.1 mg/dL (8.5-10.5) 03/28/22 12:23 Total Bilirubin 0.4 mg/dL (0.15-1.2) 03/28/22 12:23 AST 13 U/L (0-32) 03/28/22 12:23 ALT 12 U/L (0-33) 03/28/22 12:23 Alkaline Phosphatase 83 U/L (35-105) 03/28/22 12:23 Total Protein 6.6 g/dL (6.6-8.7) 03/28/22 12:23 Albumin 3.9 g/dL (3.5-5.2) 03/28/22 12:23 Globulin 2.7 g/dL (1.3-4.6) 03/28/22 12:23 Discharge Plan Discharge Patient Disposition: Home Clinical Impression: Dental infection Condition: Stable Prescriptions: No Action albuterol sulfate 90 mcg/actuation Hfa Aerosol Inhaler 2 puff INHALATION QID PRN (Reason: Shortness Of Breath) Excedrin Migraine 250-250-65 mg Tablet 1 - 2 tab PO Q6H PRN (Reason: Migraine Headache) bupropion HCl 150 mg tablet extended release 24 hr 150 mg PO DAILY Qty: 30 0RF escitalopram oxalate 10 mg tablet 10 mg PO DAILY Qty: 30 0RF Risperdal 2 mg tablet 2 mg PO .QHS Qty: 30 0RF hydroxyzine HCl 25 mg tablet 25 mg PO Q8H PRN (Reason: anxiety) Qty: 14 0RF Discharge Orders: Discharge ED (Routine); Ordered 03/28/22 Ordered By: Riccardo Alexander Discharge Diet: Regular Discharge Activity: Resume usual activity Patient Instructions: Dental Caries (Cavities), Opioid Safety Activity Restrictions/Additional Instructions: Follow-up with dentist as directed. Take medications as prescribed. Continue taking your previously prescribed clindamycin. Return to the ER or your medical provider if condition worsens. Please read and understand discharge instructions. Thank you for choosing [facility] for your healthcare needs today. Please realize this is an emergency room and that we are providing you with a medical screening exam and this may not be complete and all inclusive of all the testing and or work up that you may need to determine your ailment or severity of your illness. It is very important that you follow up as instructed or that you return to the Emergency Department should you have concerns or if your condition changes or worsens in any way. 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
[2022-03-28] MEDS: ondansetron 2 mg/ML SDV 2 mL 4 MG IVP (12:20)
[2022-03-28] MEDS: morphine 4 mg/mL SDV 1 mL IVP ×2 (12:20→14:06)
[2022-03-28] MEDS: clindamycin 600 MG/50 ML PREMIX 100 MG IV (12:21)
[2022-03-28 12:34] LABS: Basophils % 0.5 %; Eosinophils # 0.2 10^3/uL (0.0-0.8); Eosinophils % 2.2 %; Hematocrit 36.1 % (37.0-47.0); Hemoglobin 11.7 g/dL (11.5-15.3); Lymphocytes # 1.6 10^3/uL (0.8-4.8); Lymphocytes % 19.2 %; Mean Corpuscular HGB Conc 32.4 g/dL (30.0-36.0); Mean Corpuscular Hemoglobin 30.5 pg (28.0-34.0); Mean Corpuscular Volume 94.3 fl (81-99); Mean Platelet Volume 10.5 fL (7.4-10.4); Monocytes # 0.6 10^3/uL (0.2-0.9); Monocytes % 7.5 %; Neutrophils # 5.98 10^3/uL (1.8-7.7); Neutrophils % 70.2 %; Nucleated Red Blood Cells % 0 %; Platelet Count 277 10^3/cmm (130-400); Red Blood Count 3.83 10^6/uL (4.1-5.3); Red Cell Distribution Width 14.8 % (12.1-15.1); White Blood Count 8.5 10^3/uL (4.0-10.0)
[2022-03-28 12:49] LABS: Alanine Aminotransferase 12 U/L (0-33); Albumin Level 3.9 g/dL (3.5-5.2); Alkaline Phosphatase 83 U/L (35-105); Aspartate Amino Transferase 13 U/L (0-32); Blood Urea Nitrogen 3 mg/dL (6-20); Calcium 9.1 mg/dL (8.5-10.5); Carbon Dioxide 27 mmol/L (22-29); Chloride 101 mmol/L (98-107); Globulin 2.7 g/dL (1.3-4.6); Glomerular Filtration Rate 115.1 mL/min (90-130); Glucose 82 mg/dL (65-115); Osmolality Calculated 280 mOsm/kg (285-295); Sodium 137 mmol/L (136-145); Total Bilirubin 0.4 mg/dL (0.15-1.2); Total Protein 6.6 g/dL (6.6-8.7)
[2022-03-28] MEDS: iohexol 350 mg/mL 500 mL Btl (per mL) IV (12:56)
[2022-03-28] MEDS: dexamethasone 10 mg/mL INJ IVP (13:06)
[2022-03-28 14:30] VITALS: PULSE 81; RESP 16; O2SAT 99
== END 2022-03-28 14:25 | disposition home or self-care (01) ==
PROVIDERS: Emergency Provider Physician Assistant
DX: K04.7 Periapical abscess without sinus (principal); F17.210 Nicotine dependence, cigarettes, uncomplicated
CPT/HCPCS: 36415; 70491; 80053; 85025; 96365; 96375; 96376; 99285; J1100; J2270; J2405; J3490; Q9967

== ENCOUNTER 2022-07-08 01:41 | Emergency (ER) | payer SELFPAY ==
[2022-07-08 01:46] VITALS: BMI 19.7
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
[2022-07-08] MEDS: LORazepam 2 mg Tablet PO (03:03)
--- NOTE | 2022-07-11 15:27 | DCPLANNER ---
Addendum entered by Chelsy Mandujano 07/12/22 12:29: adult manager called patient due to no primary care physician - no answer at this time Original Note: TCM called patient due to no primary care physician - no answer at this time
== END 2022-07-08 03:14 | disposition home or self-care (01) ==
PROVIDERS: Emergency Provider Emergency Medicine
DX: F43.89 Other reactions to severe stress (principal); F17.210 Nicotine dependence, cigarettes, uncomplicated
CPT/HCPCS: 99283

== ENCOUNTER 2022-07-21 18:43 | Emergency (ER) | payer SELFPAY ==
[2022-07-21 18:46] VITALS: BP 128/75; PULSE 90; RESP 20; TEMP 36.9; O2SAT 98; BMI 25.7
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
--- NOTE | 2022-07-31 15:40 | DCPLANNER ---
sales and marketing manager called patient due to no primary care physician - spoke with patients mother, was told patient does not have any insurance at this time. sales and marketing manager gave patients mother the information to [facility] where patient can apply for a sliding scale.
== END 2022-07-21 19:51 | disposition home or self-care (01) ==
PROVIDERS: Emergency Provider Emergency Medicine
DX: Z63.8 Other specified problems related to primary support group (principal); F17.210 Nicotine dependence, cigarettes, uncomplicated
CPT/HCPCS: 99283

== ENCOUNTER 2022-08-03 13:49 | Emergency (ER) | payer SELFPAY ==
[2022-08-03 14:07] VITALS: BP 129/87; PULSE 65; RESP 16; TEMP 36.3; O2SAT 98; BMI 23.9
--- NOTE | 2022-08-03 14:14 | W.ED.URI ---
HPI - URI/Sore Throat General: Chief Complaint: Upper Respiratory Infection Stated Complaint: flu symptoms Time Seen by Provider: 08/03/22 14:15 Source: patient Mode of arrival: ambulatory Limitations: no limitations History of Present Illness: Patient is a 32-year-old female who presents to ED today with a complaint of chills generalized malaise, and nonproductive cough over the past 1 to 2 days. Patient states she has a history of asthma and initially attributed it to that however family encouraged her to seek medical evaluation. She has no chest pain, shortness of breath, difficulty breathing. Denies wheezing or feeling like her chest is tight. Denies sore throat, rhinorrhea, nasal congestion. No other systemic symptoms. Denies sick contacts. No fevers. MD elicited complaint: cough Pertinent past history: asthma Onset (ago): day(s) Consistency: intermittent Severity: mild Description of mucous: clear Able to tolerate fluids by mouth: Yes Exacerbating factors: nothing Relieving factors: nothing Associated symptoms: Reports chills; Deny abdominal pain, chest pain, fever(s) or headache(s) Treatments prior to arrival: cold medicine Review of Systems Const: Reports: chills; Denies: fever(s), body aches, fatigue or malaise ENMT: Denies: throat pain or odynophagia Card: Denies: chest pain Resp: Reports: non-productive cough and chest congestion; Denies: dyspnea, wheezing, pain on inspiration, change in phlegm color or hemoptysis GI: Denies: abdominal pain Musc: Denies: neck pain Skin/Breast: Denies: rash Neuro: Denies: headache(s) PFS ED PFSH: Medical History Bipolar disorder Social History Smoking and tobacco status: current every day smoker Physical Exam Const: COMMON NORMALS: no acute distress, average body habitus, patient oriented x3, no limitations, healthy appearing, alert and well nourished Neck/C-Spine: COMMON NORMALS: full ROM and no lymphadenopathy GENERAL: Yes normal visual inspection Resp: COMMON NORMALS: normal respiratory effort and clear to auscultation bilaterally AUSCULTATION: clear to auscultation bilaterally Cardio: COMMON NORMALS: regular rate and regular rhythm RATE: regular rate RHYTHM: regular rhythm Neuro: COMMON NORMALS: patient oriented x3 SENSORIUM/ORIENTATION: Yes alert Skin: COMMON NORMALS: no rashes or lesions noted GENERAL SKIN EXAM: no rashes or lesions noted Course Vital Signs: Vital signs: Vital Signs Temperature 97.3 F L 08/03/22 14:07 Pulse Rate 65 08/03/22 14:07 Respiratory Rate 16 08/03/22 14:07 Blood Pressure 129/87 08/03/22 14:07 Pulse Oximetry 98 08/03/22 14:07 Oxygen Delivery Me thod Room Air 08/03/22 14:07 MDM - URI/Sore Throat Medical Decision Making Patient appears in no acute distress. Her vital signs are perfect. CXR is normal. Most likely viral upper respiratory infection. Will place patient back on an albuterol inhaler that she can use as needed for her asthmatic symptoms as she states she is out of this medication. We will place her on a prednisone taper as well. There is no need for antibiotics at this time. She can continue OTC cough/cold medications as directed. Discharge Plan Discharge Patient Disposition: Home Clinical Impression: Viral upper respiratory tract infection with cough Condition: Stable Prescriptions: New prednisone 10 mg tablet 10 mg PO DAILY 10 Days Qty: 27 0RF Rx Instructions: 6 tabs on days 1-2, 5 tabs on days 3, 4 tabs on day 4, 3 tabs on day 5, 2 tabs on day 6, 1 tab on day 7 Continued albuterol sulfate 90 mcg/actuation Hfa Aerosol Inhaler 2 puff INHALATION QID PRN (Reason: Shortness Of Breath) Qty: 6.7 0RF No Action Excedrin Migraine 250-250-65 mg Tablet 1 - 2 tab PO Q6H PRN (Reason: Migraine Headache) Risperdal 2 mg tablet 2 mg PO .QHS Qty: 7 0RF hydroxyzine HCl 25 mg tablet 25 mg PO Q8H PRN (Reason: anxiety) Qty: 14 0RF escitalopram oxalate 10 mg tablet 10 mg PO DAILY Qty: 7 0RF bupropion HCl 150 mg tablet extended release 24 hr 150 mg PO DAILY Qty: 7 0RF Discharge Orders: Discharge ED (Routine); Ordered 08/03/22 Ordered By: Yelitza Bond Patient Instructions: Upper Respiratory Infection (DC) Stand Alone Forms: Work/School Release Coding Level of Care Code ED Geoscience Technician for Carola Vieyra
--- NOTE | 2022-08-03 14:32 | XRR_ITS ---
PROCEDURE INFORMATION: Exam: XR Chest Exam date and time: 08/03/2022 2:37 PM Age: 32 years old Clinical indication: Cough TECHNIQUE: Imaging protocol: Radiologic exam of the chest. Views: 1 view. COMPARISON: CR XR chest 1V portable [id number] 10/02/2021 8:30 PM FINDINGS: Lungs: Unremarkable. No consolidation. Pleural spaces: Unremarkable. No pleural effusion. No pneumothorax. Heart/Mediastinum: Unremarkable. No cardiomegaly. Bones/joints: Unremarkable. XR/XR chest 1V portable [id number] IMPRESSION: No acute findings.
[2022-08-03 14:58] VITALS: PULSE 68; RESP 16; O2SAT 99
--- NOTE | 2022-08-08 14:50 | DCPLANNER ---
TCM called patient due to no primary care physician - no answer at this time.
== END 2022-08-03 14:58 | disposition home or self-care (01) ==
PROVIDERS: Emergency Provider Physician Assistant
DX: J06.9 Acute upper respiratory infection, unspecified (principal); F17.200 Nicotine dependence, unspecified, uncomplicated
CPT/HCPCS: 71045; 99283

== ENCOUNTER 2022-08-08 16:49 | Emergency (ER) | payer SELFPAY ==
[2022-08-08 17:01] VITALS: BP 125/80; PULSE 89; TEMP 36.8; O2SAT 100; BMI 23.8
[2022-08-08 17:04] VITALS: BP 130/80; PULSE 84; RESP 20; O2SAT 100
[2022-08-08] MEDS: dexamethasone 4 mg Tablet 10 MG PO (17:35)
--- NOTE | 2022-08-08 18:01 | W.ED.GENADLT ---
HPI - General Adult General: Chief complaint: Shortness of Breath/Dyspnea Stated complaint: breathing issues Time Seen by Provider: 08/08/22 17:14 History of Present Illness: Patient with a history of asthma, COPD, tobacco abuse, medication noncompliance, bipolar disorder, methamphetamine abuse, alcohol abuse, anxiety presents the emergency department with complaint of asthma exacerbation and anxiety. Patient was seen here in the emergency department 5 days ago for an asthma exacerbation, she was discharged home with a prescription for steroids, however she did not pick them up due to not having money to pay for them. She states that she continues to smoke approximately half pack of cigarettes per day and lives with at least 2 other people who also smoke. She states that approximately 45 minutes prior to arrival here in the emergency department she started having shortness of breath and wheezing and took 3 puffs of an albuterol inhaler and 1 nebulizer treatment. After completing this she became very anxious and was brought into the ER by her family. Upon arrival patient is severely agitated and history is limited, however after being placed on nasal cannula oxygen at 1 L she drastically improves. She states that she has had a cough that has been nonproductive for approximately a week, she denies any fevers, chills, chest pain, nausea, or vomiting. No other modifying factors, no other associated symptoms. Review of Systems General: Reports: 10 or more systems reviewed and unremarkable except in HPI and below PFSH ED PFSH: Medical History (Updated 08/08/22 @ 19:57 by aVrun Hernandez DO) Bipolar disorder Psychiatric care Social History Smoking and tobacco status: current every day smoker Physical Exam Const: COMMON NORMALS: no acute distress and patient oriented x3 GENERAL APPEARANCE: cooperative, anxious, disheveled and diaphoretic ORIENTATION/CONSCIOUSNESS: Yes awake HENMT: COMMON NORMALS: normocephalic, atraumatic, hearing grossly normal bilaterally, external ears normal and Normal external nose present HEAD & SCALP: normocephalic and atraumatic FACE & SINUS: normal facial exam NOSE: Normal external nose present EXTERNAL EAR: Yes external ears normal MOUTH: Normal oral and palatal mucosa present THROAT: posterior oropharynx normal Eye: COMMON NORMALS: Equal, round and reactive pupils present and EOMs intact bilaterally PUPIL: Yes Equal, round and reactive pupils present Neck/C-Spine: COMMON NORMALS: supple GENERAL: Yes normal visual inspection CERVICAL SPINE: No Cervical spine tenderness and No step off deformity Chest: COMMONS NORMALS: normal inspection of the chest Resp: COMMON NORMALS: normal respiratory effort, No retractions, No use of accessory muscles and clear to auscultation bilaterally EFFORT & INSPECTION: Yes Actively coughing non-productive and Yes other (Voluntary hyperventilation) AUSCULTATION: clear to auscultation bilaterally and no wheezes Cardio: COMMON NORMALS: regular rate, regular rhythm and Peripheral pulses 2+ throughout RATE: regular rate RHYTHM: regular rhythm PERIPHERAL PULSES: Peripheral pulses 2+ throughout GI: COMMON NORMALS: Normal to inspection, nondistended, normoactive bowel sounds present, Soft to palpation and non-tender PALPATION: Yes Soft to palpation : COMMON NORMALS: Yes no CVA tenderness BLADDER/KIDNEY EXAM: Yes no CVA tenderness Back/Pelvis: COMMON NORMALS: no CVA tenderness and thoracic and lumbar spine normal to inspection THORACIC SPINE/UPPER BACK: Yes normal to inspection LUMBAR SPINE/LOWER BACK: Yes normal to inspection Extremity: COMMON NORMALS: normal to inspection and full ROM GENERAL: No clubbing and No cyanosis Neuro: COMMON NORMALS: patient oriented x3, moves all extremities, no focal motor deficits and no sensory deficits noted Psych: COMMON NORMALS: denies homicidal ideation and denies suicidal ideation; negative for cooperative and negative for activity/motor behavior normal APPEARANCE: Yes unkempt and Yes disheveled ATTITUDE: Yes calm, No engaged, Yes uncooperative and Yes agitated ACTIVITY/MOTOR BEHAVIOR: Yes restless MOOD & AFFECT: Yes anxious and Yes Other affect and mood findings present (Dramatic) Skin: COMMON NORMALS: no rashes or lesions noted GENERAL SKIN EXAM: no rashes or lesions noted Course Reevaluation(s): Reevaluation #1: Patient reevaluated, much improved on 1 L nasal cannula oxygen, now much more calm Time: 17:00 Reevaluation #2: Called back into the room by family, patient is coughing again and becoming significantly agitated, will give her Tessalon Perles Time: 18:11 Reevaluation #3: Patient doing much better, will discharge with prescription for Decadron and Tessalon Perles, patient given information regarding [facility] and card. Patient requests work note. Patient advised to follow-up as directed, return to the emergency department with any new or worsening symptoms or if unable to follow-up as directed or tolerate p.o. intake. Patient verbalized understanding and agreement with this plan, all questions answered. Time: 19:56 Vital Signs: Vital signs: Vital Signs Temperature 98.2 F 08/08/22 17:01 Pulse Rate 90 08/08/22 19:18 Respiratory Rate 18 08/08/22 19:18 Blood Pressure 128/68 08/08/22 19:18 Pulse Oximetry 100 08/08/22 19:18 Oxygen Delivery Me thod Room Air 08/08/22 19:18 MDM - General Adult Medical Decision Making Patient is hemodynamically stable, satting 100% on 1 L nasal cannula and now significantly calm down. Oxygen has been turned off we will continue to monitor the patient. Given that the patient has been noncompliant with her steroids and has continued to be exposed to tobacco smoke, will give the patient a dose of steroids here in the emergency department. She has no active wheezing, no indication for additional albuterol treatment as this will likely exacerbate the patient's anxiety. Discharge Plan Discharge Patient Disposition: Home Clinical Impression: Acute anxiety, Tobacco abuse, Non compliance w medication regimen Asthma with exacerbation Qualifiers: Asthma severity: mild Asthma persistence: intermittent Qualified Code(s): J45.21 - Mild intermittent asthma with (acute) exacerbation Condition: Stable Prescriptions: New benzonatate 200 mg capsule 200 mg PO TID PRN (Reason: cough) Qty: 30 0RF dexamethasone 4 mg tablet 4 mg PO DAILY 4 Days Qty: 4 0RF Discontinued prednisone 10 mg tablet 10 mg PO DAILY 10 Days Qty: 27 0RF Rx Instructions: 6 tabs on days 1-2, 5 tabs on days 3, 4 tabs on day 4, 3 tabs on day 5, 2 tabs on day 6, 1 tab on day 7 No Action Excedrin Migraine 250-250-65 mg Tablet 1 - 2 tab PO Q6H PRN (Reason: Migraine Headache) Risperdal 2 mg tablet 2 mg PO .QHS Qty: 7 0RF hydroxyzine HCl 25 mg tablet 25 mg PO Q8H PRN (Reason: anxiety) Qty: 14 0RF escitalopram oxalate 10 mg tablet 10 mg PO DAILY Qty: 7 0RF bupropion HCl 150 mg tablet extended release 24 hr 150 mg PO DAILY Qty: 7 0RF albuterol sulfate 90 mcg/actuation Hfa Aerosol Inhaler 2 puff INHALATION QID PRN (Reason: Shortness Of Breath) Qty: 6.7 0RF Discharge Orders: Discharge ED (Routine); Ordered 08/08/22 Ordered By: Varun Hernandez Referrals: ROBBIE DennisM [Emergency Department] - (as needed) Patient Instructions: Asthma Exacerbation - Adult, Asthma (ED), COPD (Chronic Obstructive Pulmonary Disease) (ED), How to Stop Smoking (ED), Anxiety (ED) Activity Restrictions/Additional Instructions: Follow-up with your primary care provider Stand Alone Forms: Work/School Release 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
[2022-08-08 18:03] VITALS: BP 136/62; O2SAT 99
[2022-08-08] MEDS: benzonatate 100 mg Capsule 200 MG PO (18:12)
[2022-08-08 18:30] VITALS: O2SAT 100
[2022-08-08 19:18] VITALS: BP 128/68; PULSE 90; RESP 18; O2SAT 100
[2022-08-08 20:21] VITALS: BP 119/78; PULSE 76; RESP 14; O2SAT 99
--- NOTE | 2022-08-09 10:22 | DCPLANNER ---
manager quality improvement called patient due to no primary care physician - no answer at this time.
== END 2022-08-08 20:22 | disposition home or self-care (01) ==
PROVIDERS: Emergency Provider Emergency Medicine
DX: F41.9 Anxiety disorder, unspecified (principal); J45.21 Mild intermittent asthma with (acute) exacerbation; Z91.148 Patient's other noncompliance with medication regimen for other reason; F17.210 Nicotine dependence, cigarettes, uncomplicated; J44.9 Chronic obstructive pulmonary disease, unspecified
CPT/HCPCS: 99284; J8540

== ENCOUNTER 2022-08-09 04:12 | Emergency (ER) | payer SELFPAY ==
[2022-08-09 04:13] VITALS: BP 130/72; PULSE 88; RESP 16; TEMP 36.7; O2SAT 94; BMI 24.0
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
[2022-08-09 04:18] VITALS: BP 133/79; PULSE 95; RESP 18; O2SAT 99
[2022-08-09 04:31] LABS: Basophils % 0.1 %; Hematocrit 38.9 % (37.0-47.0); Hemoglobin 12.4 g/dL (11.5-15.3); Lymphocytes # 0.9 10^3/uL (0.8-4.8); Lymphocytes % 12.4 %; Mean Corpuscular HGB Conc 31.9 g/dL (30.0-36.0); Mean Corpuscular Volume 90.9 fl (81-99); Mean Platelet Volume 10.3 fL (7.4-10.4); Monocytes % 0.6 %; Neutrophils # 6.15 10^3/uL (1.8-7.7); Neutrophils % 86.1 %; Nucleated Red Blood Cells % 0 %; Platelet Count 410 10^3/cmm (130-400); Red Blood Count 4.28 10^6/uL (4.1-5.3); Red Cell Distribution Width 14.6 % (12.1-15.1); White Blood Count 7.2 10^3/uL (4.0-10.0)
[2022-08-09 04:48] VITALS: BP 109/66; PULSE 99; RESP 16; O2SAT 96
[2022-08-09 04:48] LABS: Alanine Aminotransferase 24 U/L (0-33); Albumin Level 4.5 g/dL (3.5-5.2); Alcohol Level 214 mg/dL (0-10); Alkaline Phosphatase 114 U/L (35-105); Anion Gap 26.5 (5-19); Aspartate Amino Transferase 22 U/L (0-32); Blood Urea Nitrogen 2 mg/dL (6-20); Carbon Dioxide 15 mmol/L (22-29); Chloride 105 mmol/L (98-107); Globulin 3.1 g/dL (1.3-4.6); Glomerular Filtration Rate 95.8 mL/min (90-130); Glucose 205 mg/dL (65-115); Osmolality Calculated 298 mOsm/kg (285-295); Potassium 3.5 mmol/L (3.5-5.1); Sodium 143 mmol/L (136-145); Total Bilirubin 0.2 mg/dL (0.15-1.2); Total Protein 7.6 g/dL (6.6-8.7)
[2022-08-09] MEDS: sodium chloride 0.9% 1,000 ML 999 ML IV (04:59)
[2022-08-09 05:48] VITALS: BP 102/66
[2022-08-09 06:14] VITALS: BP 102/71; RESP 14; O2SAT 99
--- NOTE | 2022-08-10 14:56 | DCPLANNER ---
manager financial services called patient due to no primary care physician - no answer at this time.
== END 2022-08-09 06:15 | disposition home or self-care (01) ==
PROVIDERS: Emergency Provider Emergency Medicine
DX: S01.81XA Laceration without foreign body of other part of head, initial encounter (principal); S09.90XA Unspecified injury of head, initial encounter; F10.129 Alcohol abuse with intoxication, unspecified; Y90.7 Blood alcohol level of 200-239 mg/100 ml; F17.210 Nicotine dependence, cigarettes, uncomplicated; Y04.2XXA Assault by strike against or bumped into by another person, initial encounter
CPT/HCPCS: 12013; 70450; 71045; 72125; 80053; 80307; 85025; 96361; 96374; 99285; J3411; J7030

== ENCOUNTER 2022-11-12 07:48 | Emergency (ER) | payer SELFPAY ==
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
[2022-11-12 08:00] VITALS: BP 152/71; PULSE 61; RESP 16; TEMP 36.9; O2SAT 98; BMI 24.0
--- NOTE | 2022-11-12 08:24 | W.ED.EXTPRO ---
HPI - Extremity Problem General: Chief complaint: Extremity Injury, Upper Stated complaint: right thumb pain Time Seen by Provider: 11/12/22 07:56 History of Present Illness: Patient is a 32-year-old female who comes to the ED with right thumb pain. Patient says approximately 3 to 4 weeks ago she smashed her right thumb in a car door. She never saw a provider to get her thumb looked at after injury. She has just been dealing with the pain and thought it would get better in a week or so. Patient says she still having a lot of pain in her thumb and she feels like she might of fractured it. She rates her pain a 6 out of 10 and has limited mobility on the MCP joint of thumb. She has been taking [id number] Tylenol and Motrin to help with pain. Denies any other injuries. Associated symptoms: Deny chest pain, fever(s) or rash Review of Systems Const: Denies: fever(s), chills or fatigue Eyes: Denies: change in vision or eye discomfort ENMT: Denies: throat pain, odynophagia, nasal discharge or nasal congestion Card: Denies: chest pain, palpitations, edema, swelling of feet/ankles, dyspnea on exertion or orthopnea Resp: Denies: dyspnea, productive cough or non-productive cough GI: Denies: abdominal pain, nausea, vomiting, diarrhea, constipation or hematochezia : Denies: flank pain, dysuria or hematuria Musc: Reports: extremity pain (Right thumb); Denies: neck pain, back pain or extremity swelling Skin/Breast: Denies: rash or new lesions Neuro: Denies: headache(s), numbness in extremities or weakness in extremities PFS ED PFSH: Medical History (Updated 11/12/22 @ 15:17 by RADHA Denney) Bipolar disorder No pertinent family history Psychiatric care Social History Smoking and tobacco status: current every day smoker Physical Exam Const: COMMON NORMALS: no acute distress, patient oriented x3, healthy appearing and alert HENMT: COMMON NORMALS: normocephalic HEAD & SCALP: normocephalic MOUTH: Normal oral and palatal mucosa present THROAT: posterior oropharynx normal and uvula midline Neck/C-Spine: COMMON NORMALS: supple GENERAL: Yes normal visual inspection Resp: COMMON NORMALS: normal respiratory effort, No retractions, No use of accessory muscles and clear to auscultation bilaterally AUSCULTATION: clear to auscultation bilaterally Cardio: COMMON NORMALS: regular rate, regular rhythm, S1 normal heart sound present, S2 normal heart sound present, No gallops present (Cardio), No clicks present (Cardio), No murmurs present (Cardio) and Peripheral pulses 2+ throughout RATE: regular rate RHYTHM: regular rhythm HEART SOUNDS: S1 normal heart sound present and S2 normal heart sound present PERIPHERAL PULSES: Peripheral pulses 2+ throughout GI: COMMON NORMALS: Normal to inspection, nondistended, normoactive bowel sounds present, Soft to palpation, non-tender and no masses PALPATION: Yes Soft to palpation : COMMON NORMALS: Yes no CVA tenderness BLADDER/KIDNEY EXAM: Yes no CVA tenderness Back/Pelvis: COMMON NORMALS: no CVA tenderness Extremity: NARRATIVE EXTREMITY EXAM: Right hand?thumb-tenderness over the metacarpal. Limited range of motion at the MCP joint due to pain. Neurovascular intact distally. No visible deformity ecchymosis or swelling seen. No nailbed or nail damage noted. Neuro: COMMON NORMALS: patient oriented x3 SENSORIUM/ORIENTATION: Yes alert GAIT: Yes Normal gait present Skin: GENERAL SKIN EXAM: dry skin Course Vital Signs: Vital signs: Vital Signs Temperature 98.4 F 11/12/22 08:00 Pulse Rate 67 11/12/22 08:31 Respiratory Rate 16 11/12/22 08:31 Blood Pressure 152/71 11/12/22 08:31 Pulse Oximetry 100 11/12/22 08:31 Oxygen Delivery Me thod Room Air 11/12/22 08:31 MDM - Extremity (Nontraumatic) Medical Decision Making Patient is a 32-year-old female who comes to the ED with right thumb pain. Patient says approximately 3 to 4 weeks ago she smashed her right thumb in a car door. She never saw a provider to get her thumb looked at after injury. She has just been dealing with the pain and thought it would get better in a week or so. Patient says she still having a lot of pain in her thumb and she feels like she might of fractured it. She rates her pain a 6 out of 10 and has limited mobility on the MCP joint of thumb. She has been taking [id number] Tylenol and Motrin to help with pain. Denies any other injuries. Vitals are stable. Right hand?thumb-tenderness over the metacarpal. Limited range of motion at the MCP joint due to pain. Neurovascular intact distally. No visible deformity ecchymosis or swelling seen. No nailbed or nail damage noted. X-ray of right hand shows no acute fractures or findings. Given patient's exam findings and the fact that she is 3 weeks plus out injury and still having quite a bit of pain putting her in a thumb spica splint and referring her to Ortho for follow-up. She was diagnosed with injury of right thumb and was stable for discharge home. Return to ED precautions given. Patient understood and agreed with plan. Lab Data Radiology Impressions Hand X-Ray 11/12/22 07:56 IMPRESSION: No acute findings. Discharge Plan Discharge Patient Disposition: Home Clinical Impression: Injury of right thumb Qualifiers: Encounter type: initial encounter Qualified Code(s): S69.91XA - Unspecified injury of right wrist, hand and finger(s), initial encounter Condition: Stable Prescriptions: New ibuprofen 800 mg tablet 800 mg PO Q8H PRN (Reason: pain) Qty: 20 0RF No Action bupropion HCl 150 mg tablet extended release 24 hr 150 mg PO DAILY Qty: 30 0RF Rx Instructions: Take one tablet by mouth every morning escitalopram oxalate 10 mg tablet 10 mg PO .q am Qty: 30 0RF Rx Instructions: Take one tablet by mouth every morning mirtazapine [Remeron] 15 mg tablet 15 mg PO DAILY Qty: 30 0RF Rx Instructions: Take one tablet daily at bedtime Excedrin Migraine 250-250-65 mg Tablet 1 - 2 tab PO Q6H PRN (Reason: Migraine Headache) albuterol sulfate 90 mcg/actuation Hfa Aerosol Inhaler 2 puff INHALATION QID PRN (Reason: Shortness Of Breath) Qty: 6.7 0RF Discharge Orders: Discharge ED (Routine); Ordered 11/12/22 Ordered By: Riccardo Alexander Discharge Diet: Regular Discharge Activity: Increase activity as tolerated Activity Restrictions/Additional Instructions: Follow-up with medical provider as directed. Case management should be contacting you in the next several days to set up an appointment for follow-up with orthopedic doctor. Keep splint dry and limit activity with the right hand until cleared by orthopedic doctor. Take medications as prescribed. Return to the ER or your medical provider if condition worsens. Please read and understand discharge instructions. Thank you for choosing [facility] for your healthcare needs today. Please realize this is an emergency room and that we are providing you with a medical screening exam and this may not be complete and all inclusive of all the testing and or work up that you may need to determine your ailment or severity of your illness. It is very important that you follow up as instructed or that you return to the Emergency Department should you have concerns or if your condition changes or worsens in any way. Coding Level of Care Code ED Society Reporter for Carola Vieyra
[2022-11-12] MEDS: HYDROcodone-acetaminophen 5-325 mg Tablet 1 TAB PO (08:30)
[2022-11-12 08:31] VITALS: BP 152/71; PULSE 67; RESP 16; O2SAT 100
--- NOTE | 2022-11-12 11:19 | DCPLANNER ---
Addendum entered by Chelsy Mandujano 11/13/22 13:25: seed cleaning manager received the following message from the ortho clinic regarding follow up appointment: per Maryuri in patient accounts, she tried to reach out to patient to get a payment plan going and work something out for patient to be able to come in. She was unable to contact or leave a msg. If she does try to call please try to get her over to Maryuri at ext [phone] to discuss options before scheduling. On Sat 8:34a Nov 13, 2022 Nilsa Castellanos (Covering For: Orthopedic Front Offfice) Wrote To: Chelsy Mandujano spoke to patient about scheduling, we discussed self pay copay (which patient stated she would be unable to bring in) and Financial assistance through the hospital. I have contacted Maryuri in patient accounts and due to patients balance, she will be getting with her beam department supervisor and reaching out to patient to get something worked out before we can schedule. Maryuri will let me know when we are ok to to proceed. Original Note: seed cleaning manager had message to schedule a follow up appointment for patient with ortho. seed cleaning manager sent patients information to the front office staff at ortho. Patients information will be printed and reviewed. Clinic will call patient with appointment information.
--- NOTE | 2022-11-12 15:09 | DCPLANNER ---
car manager called patient due to no primary care physician - unable to speak with patient at this time.
== END 2022-11-12 09:48 | disposition home or self-care (01) ==
PROVIDERS: Emergency Provider Physician Assistant
DX: S67.01XA Crushing injury of right thumb, initial encounter (principal); W23.0XXA Caught, crushed, jammed, or pinched between moving objects, initial encounter
CPT/HCPCS: 73130; 99283

== ENCOUNTER 2022-12-07 18:48 | Emergency (ER) | payer SELFPAY ==
[2022-12-07 19:10] VITALS: BP 120/77; PULSE 85; RESP 16; TEMP 36.8; O2SAT 97; BMI 25.2
[2022-12-07] MEDS: dexamethasone 10 mg/mL INJ IM (19:52)
--- NOTE | 2022-12-08 00:56 | ED_ITS ---
HPI - General Adult General: Chief complaint: General Medical Stated complaint: poison Emperatriz Time Seen by Provider: 12/07/22 19:18 Source: patient Mode of arrival: ambulatory Limitations: no limitations History of Present Illness: Patient presents emergency department today for evaluation treatment of worsening poison emperatriz rash. Patient states she is extremely sensitive to poison emperatriz and, notes that a few days back she was retrieving a ball out of a ditch that had high weeds in it. Since that time she has developed multiple areas of linear, erythematous and blistering rash-primarily behind her ears, left upper shoulder, backs of her legs. She denies any facial swelling or difficulty breathing. She has been trying [id number] Benadryl cream without improvement. [facility] ED PFSH: Medical History (Updated 12/07/22 @ 19:49 by RADHA Escobar) Bipolar disorder No pertinent family history Psychiatric care Social History Smoking and tobacco status: current every day smoker Physical Exam Const: COMMON NORMALS: no acute distress, average body habitus and patient oriented x3 HENMT: COMMON NORMALS: normocephalic, atraumatic, hearing grossly normal bilaterally, Normal external nose present and moist oral mucous membranes HEAD & SCALP: normocephalic and atraumatic NOSE: Normal external nose present Eye: COMMON NORMALS: Equal, round and reactive pupils present, EOMs intact bilaterally and conjunctivae normal CONJUNCTIVA: Yes conjunctivae normal PUPIL: Yes Equal, round and reactive pupils present Neck/C-Spine: COMMON NORMALS: no JVD Lymph: LYMPHATIC: no lymphadenopathy noted Resp: COMMON NORMALS: normal respiratory effort, No retractions and No use of accessory muscles Cardio: COMMON NORMALS: no JVD, regular rate and regular rhythm RATE: regular rate RHYTHM: regular rhythm GI: COMMON NORMALS: Normal to inspection, nondistended, normoactive bowel sounds present : COMMON NORMALS: Yes no CVA tenderness BLADDER/KIDNEY EXAM: Yes no CVA tenderness Back/Pelvis: COMMON NORMALS: no CVA tenderness and thoraco-lumbar ROM normal Extremity: COMMON NORMALS: normal to inspection, full ROM and capillary refill normal Neuro: COMMON NORMALS: patient oriented x3 Psych: COMMON NORMALS: mental status grossly normal, Normal thought process present, cooperative, normal affect and activity/motor behavior normal THOUGHT PROCESS: Normal thought process present Skin: NARRATIVE SKIN EXAM: Patient has various areas of skin with erythematous base and overlying small blisters. Patient primarily has the spots on the back of her left leg in a linear fashion, grouped to her left anterior shoulder, grouped behind her ears bilaterally. Rashes consistent with a contact dermatitis. Course Vital Signs: Vital signs: Vital Signs Temperature 98.3 F 12/07/22 19:10 Pulse Rate 85 12/07/22 19:10 Respiratory Rate 16 12/07/22 19:10 Blood Pressure 120/77 12/07/22 19:10 Pulse Oximetry 97 12/07/22 19:10 MDM - General Adult Medical Decision Making Patient was treated for contact dermatitis. She was given a Decadron shot here and a prescription for triamcinolone and prednisone taper provided. Encouraged her to still use antihistamines. She is to still watch for facial swelling, lip swelling, tongue swelling or any difficulty breathing for which she is to be seen and reevaluated here in the emergency department [place]. Discussed the importance of washing any clothing, shoes, or hats which may have been in contact with the plant oils as this can cause continued spreading of the rash. Patient verbalized understanding and agreement to the treatment plan. Differential Diagnosis Contact dermatitis, eczema, allergic reaction Discharge Plan Discharge Patient Disposition: Home Clinical Impression: Contact dermatitis and eczema due to plant Condition: Stable Prescriptions: New triamcinolone acetonide 0.1 % cream 1 applic topical BID Qty: 80 0RF prednisone 20 mg tablet See Rx Instructions .ROUTE .COMPLEX Qty: 19 0RF Rx Instructions: take 1 tab three times a day for 3 days. Take 1 tab twice a day for 3 days. Then take 1 tab daily until gone No Action mirtazapine [Remeron] 15 mg tablet 15 mg PO .q hs PRN (Reason: sleep) Qty: 15 0RF Rx Instructions: Take 1/2 tablet by mouth at bedtime, if needed for sleep bupropion HCl 150 mg tablet extended release 24 hr 150 mg PO DAILY Qty: 30 0RF Rx Instructions: Take one tablet by mouth every morning escitalopram oxalate 20 mg tablet 20 mg PO DAILY Qty: 30 0RF Rx Instructions: Take one tablet daily; stop 10 mg dose Excedrin Migraine 250-250-65 mg Tablet 1 - 2 tab PO Q6H PRN (Reason: Migraine Headache) albuterol sulfate 90 mcg/actuation Hfa Aerosol Inhaler 2 puff INHALATION QID PRN (Reason: Shortness Of Breath) Qty: 6.7 0RF ibuprofen 800 mg tablet 800 mg PO Q8H PRN (Reason: pain) Qty: 20 0RF Discharge Orders: Discharge ED (Routine); Ordered 12/07/22 Ordered By: Laura Guy Discharge Diet: Usual diet Discharge Activity: Increase activity as tolerated Patient Instructions: Poison Em[place]at[place], [place], and [place] - Adult Activity Restrictions/Additional Instructions: Take the prescription medications provided to you to help prevent worsening of your contact dermatitis rash. You may continue using anti-itch medication such as Benadryl and other topical creams. However, I have provided you a stronger steroid cream to apply to these areas of rash while you are being treated. If for any reason you do develop facial swelling, lip swelling, tongue swelling, or any difficulty breathing or swallowing you need to be seen and reevaluated in the ER. Coding Level of Care Code ED Computer Forwarding System Markup Clerk for Carola Vieyra
== END 2022-12-07 19:56 | disposition home or self-care (01) ==
PROVIDERS: Emergency Provider Physician Assistant
DX: L23.7 Allergic contact dermatitis due to plants, except food (principal); F17.210 Nicotine dependence, cigarettes, uncomplicated
CPT/HCPCS: 96372; 99284; J1100

== ENCOUNTER 2022-12-23 16:07 | Emergency (ER) | payer SELFPAY ==
[2022-12-23 16:11] VITALS: BP 149/110; PULSE 84; RESP 17; TEMP 36.6; O2SAT 98; BMI 25.2
--- NOTE | 2022-12-23 16:24 | W.ED.SKABFB ---
HPI - Skin/Abscess/Foreign Bdy General: Chief complaint: Skin/Abscess/Foreign Body Stated complaint: rash Time Seen by Provider: 12/23/22 16:16 History of Present Illness: Patient is a 32-year-old female that presents to the emergency department with rash. Patient reports symptoms began 2 weeks ago and she was treated with steroids here in the ER. Symptoms improved and resolved but returned last week. She has a fine raised red rash to lower extremities. Review of Systems General: Reports: 10 or more systems reviewed and unremarkable except in HPI and below PFSH ED PFSH: Medical History (Updated 12/23/22 @ 16:24 by CHRISTINA Salazar) Bipolar disorder No pertinent family history Psychiatric care Social History Smoking and tobacco status: current every day smoker Physical Exam Const: COMMON NORMALS: no acute distress, patient oriented x3 and alert GENERAL APPEARANCE: cooperative ORIENTATION/CONSCIOUSNESS: Yes awake, Yes oriented to person, Yes oriented to place and Yes oriented to time HENMT: COMMON NORMALS: normocephalic and atraumatic HEAD & SCALP: normocephalic and atraumatic FACE & SINUS: normal facial exam MOUTH: Normal oral and palatal mucosa present THROAT: posterior oropharynx normal Eye: COMMON NORMALS: Equal, round and reactive pupils present, EOMs intact bilaterally, conjunctivae normal and no scleral icterus GENERAL EYE: appearance normal, both eyes and all related structures ALIGNMENT: Yes alignment normal PERIORBITAL: periorbital findings normal CONJUNCTIVA: Yes conjunctivae normal PUPIL: Yes Equal, round and reactive pupils present Neck/C-Spine: COMMON NORMALS: full ROM GENERAL: Yes normal visual inspection Lymph: LYMPHATIC: no lymphadenopathy noted Chest: COMMONS NORMALS: normal inspection of the chest Breast/axilla inspection: Yes no chest deformity, asymmetry, normal contours, no nodules, masses, tenderness Resp: COMMON NORMALS: normal respiratory effort, No retractions, No use of accessory muscles and clear to auscultation bilaterally EFFORT & INSPECTION: Yes able to speak in complete sentences and Yes symmetric chest movement AUSCULTATION: clear to auscultation bilaterally Cardio: COMMON NORMALS: regular rate, regular rhythm and Peripheral pulses 2+ throughout RATE: regular rate RHYTHM: regular rhythm PERIPHERAL PULSES: Peripheral pulses 2+ throughout GI: COMMON NORMALS: Normal to inspection, nondistended, normoactive bowel sounds present, Soft to palpation, non-tender and No hepatosplenomegaly present INSPECTION: Yes normal to inspection AUSCULTATION: Yes normoactive bowel sounds PALPATION: Yes Soft to palpation and Yes No hepatosplenomegaly present RECTAL EXAM: deferred Extremity: COMMON NORMALS: normal to inspection GENERAL: Yes normal exam except as noted Neuro: COMMON NORMALS: patient oriented x3 SENSORIUM/ORIENTATION: Yes alert, Yes oriented to person, Yes oriented to place and Yes oriented to time CRANIAL NERVES: Yes CN normal except as noted Psych: COMMON NORMALS: mental status grossly normal, Normal thought process present, cooperative, activity/motor behavior normal, denies homicidal ideation and denies suicidal ideation THOUGHT PROCESS: Normal thought process present Skin: COMMON NORMALS: no rashes or lesions noted, no wounds and turgor normal GENERAL SKIN EXAM: no rashes or lesions noted and turgor normal Course Vital Signs: Vital signs: Vital Signs Temperature 97.8 F 12/23/22 16:11 Pulse Rate 84 12/23/22 16:11 Respiratory Rate 17 12/23/22 16:11 Blood Pressure 149/110 12/23/22 16:11 Pulse Oximetry 98 12/23/22 16:11 Oxygen Delivery Me thod Room Air 12/23/22 16:11 MDM - Skin/Abscess/Foreign Bdy Medicial Decision Making Patient is a 32-year-old female that presents with a rash. Differential diagnosis includes external versus internal allergic reaction. Is isolated just to the legs and so therefore I imagine it is environmental allergen. I am giving her a steroid injection here in the emergency department and discharging home with additional 5 days. Patient should return to the emergency department for new concerning or worsening symptoms. All questions answered Discharge Plan Discharge Patient Disposition: Home Clinical Impression: Contact dermatitis Condition: Stable Prescriptions: New prednisone 50 mg tablet 50 mg PO DAILY 5 Days Qty: 5 0RF No Action mirtazapine [Remeron] 15 mg tablet 15 mg PO .q hs PRN (Reason: sleep) Qty: 15 0RF Rx Instructions: Take 1/2 tablet by mouth at bedtime, if needed for sleep bupropion HCl 150 mg tablet extended release 24 hr 150 mg PO DAILY Qty: 30 0RF Rx Instructions: Take one tablet by mouth every morning escitalopram oxalate 20 mg tablet 20 mg PO DAILY Qty: 30 0RF Rx Instructions: Take one tablet daily; stop 10 mg dose Excedrin Migraine 250-250-65 mg Tablet 1 - 2 tab PO Q6H PRN (Reason: Migraine Headache) albuterol sulfate 90 mcg/actuation Hfa Aerosol Inhaler 2 puff INHALATION QID PRN (Reason: Shortness Of Breath) Qty: 6.7 0RF ibuprofen 800 mg tablet 800 mg PO Q8H PRN (Reason: pain) Qty: 20 0RF triamcinolone acetonide 0.1 % cream 1 applic topical BID Qty: 80 0RF prednisone 20 mg tablet See Rx Instructions .ROUTE .COMPLEX Qty: 19 0RF Rx Instructions: take 1 tab three times a day for 3 days. Take 1 tab twice a day for 3 days. Then take 1 tab daily until gone Discharge Orders: Discharge ED (Routine); Ordered 12/23/22 Ordered By: Beto Best Discharge Diet: Advance as tolerated Discharge Activity: Resume usual activity Patient Instructions: Contact Dermatitis (ED), Poison Emperatriz (ED), Pain Management Coding Level of Care Code ED Electrical Appliance Repairer for Carola Vieyra
[2022-12-23] MEDS: methylPREDNISolone (DEPO) 80 MG/ML INJ 1 mL IM (16:44)
== END 2022-12-23 17:03 | disposition home or self-care (01) ==
PROVIDERS: Emergency Provider Nurse Practitioner
DX: L25.9 Unspecified contact dermatitis, unspecified cause (principal); F17.210 Nicotine dependence, cigarettes, uncomplicated
CPT/HCPCS: 96372; 99284; J1040

== ENCOUNTER 2023-04-05 12:00 | Emergency (ER) | payer SELFPAY ==
[2023-04-05 12:15] LABS: Basophils % 0.3 %; Eosinophils % 0.5 %; Hematocrit 34.9 % (36-47); Lymphocytes # 1.1 10^3/uL (0.8-4.8); Lymphocytes % 17.5 %; Mean Corpuscular HGB Conc 31.5 g/dL (30-55); Mean Corpuscular Hemoglobin 29.5 pg (27-33); Mean Corpuscular Volume 93.6 fl (85-98); Mean Platelet Volume 9.7 fL (7.4-10.4); Monocytes # 0.3 10^3/uL (0.2-0.9); Monocytes % 4.2 %; Neutrophils # 4.83 10^3/uL (1.8-7.7); Neutrophils % 77.3 %; Nucleated Red Blood Cells % 0 %; Platelet Count 367 10^3/cmm (157-399); Red Blood Count 3.73 10^6/uL (3.85-5.65); Red Cell Distribution Width 15.8 % (12.1-15.1); White Blood Count 6.24 10^3/uL (3.29-11.43)
[2023-04-05 12:18] VITALS: BP 151/82; PULSE 62; RESP 18; TEMP 36.8; O2SAT 98; BMI 24.0
--- NOTE | 2023-04-05 12:26 | W.ED.SKABFB ---
HPI - Skin/Abscess/Foreign Bdy General: Chief complaint: Skin/Abscess/Foreign Body Stated complaint: left abd sore and pain Time Seen by Provider: 04/05/23 12:03 Source: patient Mode of arrival: ambulatory Limitations: no limitations History of Present Illness: Patient is a 32-year-old female presents to ED today with a complaint of lesion to her abdomen. Patient states a few days ago she noticed a small pimple-like lesion that she tried to pop. Since then she has noticed surrounding redness. She describes a burning sensation and states it feels hard . Wonders if maybe she got bit by a spider. complaint: lesion Onset (ago): day(s) Tetanus up to date: yes Location: generalized (abdomen) Severity: moderate Quality: burning Pain Consistency: constant Relieving factors: none Exacerbating factors: none Context: none Associated symptoms: Reports no associated symptoms; Deny chills, fever(s), nausea or vomiting Treatments prior to arrival: attempted to drain pus at home Review of Systems Const: Denies: fever(s), chills or body aches GI: Denies: nausea or vomiting Skin/Breast: Reports: new lesions Neuro: Denies: numbness in extremities, weakness in extremities or sensory changes PFSH ED PFSH: Medical History No pertinent family history Psychiatric care Bipolar disorder Social History Smoking and tobacco/nicotine status: current every day tobacco/nicotine user Physical Exam Const: COMMON NORMALS: no acute distress, no limitations, alert and well nourished Resp: COMMON NORMALS: normal respiratory effort Cardio: COMMON NORMALS: regular rate and regular rhythm RATE: regular rate RHYTHM: regular rhythm GI: GI image (female): 1. small area of erythema to L lower abdomen with central scab and a scant amount of underlying induration; no fluctuance/drainage present Extremity: GENERAL: Yes normal exam except as noted Neuro: SENSORIUM/ORIENTATION: Yes alert Skin: NARRATIVE SKIN EXAM: see above Course Vital Signs: Vital signs: Vital Signs Temperature 98.2 F 04/05/23 12:18 Pulse Rate 62 04/05/23 12:18 Respiratory Rate 18 04/05/23 12:18 Blood Pressure 151/82 04/05/23 12:18 Pulse Oximetry 98 04/05/23 12:18 Oxygen Delivery Me thod Room Air 04/05/23 12:18 MDM - Skin/Abscess/Foreign Bdy Medicial Decision Making DDx includes cellulitis, early abscess formation, spider/insect bite. Discussed how spider/insect bites or not bacterial in nature however given her history of attempting to pop the lesion at home she very well could have introduced a secondary bacterial infection. I will place her on Bactrim. Return ED precautions given. Otherwise she can follow-up with primary care next week if lesion does not seem to be improving. Lab Data 04/05/23 12:08 04/05/23 12:08 Laboratory Results WBC 6.24 10^3/uL (3.29-11.43) 04/05/23 12:08 RBC 3.73 10^6/uL (3.85-5.65) L 04/05/23 12:08 Hgb 11.00 g/dL (11.27-16.99) L 04/05/23 12:08 Hct 34.9 % (36-47) L 04/05/23 12:08 MCV 93.6 fl (85-98) 04/05/23 12:08 MCH 29.5 pg (27-33) 04/05/23 12:08 MCHC 31.5 g/dL (30-55) 04/05/23 12:08 RDW 15.8 % (12.1-15.1) H 04/05/23 12:08 Plt Count 367 10^3/cmm (157-399) 04/05/23 12:08 MPV 9.7 fL (7.4-10.4) 04/05/23 12:08 Neut % (Auto) 77.3 % 04/05/23 12:08 Lymph % (Auto) 17.5 % 04/05/23 12:08 [place] % (Auto) 4.2 % 04/05/23 12:08 Eos % (Auto) 0.5 % 04/05/23 12:08 Baso % (Auto) 0.3 % 04/05/23 12:08 Neut # (Auto) 4.83 10^3/uL (1.8-7.7) 04/05/23 12:08 Lymph # (Auto) 1.1 10^3/uL (0.8-4.8) 04/05/23 12:08 [place] # (Auto) 0.3 10^3/uL (0.2-0.9) 04/05/23 12:08 Eos # (Auto) 0.0 10^3/uL (0.0-0.8) 04/05/23 12:08 Baso # (Auto) 0.0 10^3/uL (0.0-0.1) 04/05/23 12:08 Nucleated RBC % (auto) 0 % 04/05/23 12:08 Nucleated RBCs # 0.0 /100WBC 04/05/23 12:08 Sodium 137 mmol/L (136-145) 04/05/23 12:08 Potassium 3.7 mmol/L (3.5-5.1) 04/05/23 12:08 Chloride 101 mmol/L (98-107) 04/05/23 12:08 Carbon Dioxide 24 mmol/L (22-29) 04/05/23 12:08 Anion Gap 15.7 (5-19) 04/05/23 12:08 BUN 4 mg/dL (6-20) L 04/05/23 12:08 Creatinine 0.6 mg/dL (0.5-0.9) 04/05/23 12:08 GFR Calculation 114.4 mL/min (90-130) 04/05/23 12:08 Glucose 123 mg/dL (65-115) H 04/05/23 12:08 Calculated Osmolality 282 mOsm/kg (285-295) L 04/05/23 12:08 Calcium 9.1 mg/dL (8.5-10.5) 04/05/23 12:08 Total Bilirubin 0.6 mg/dL (0.15-1.2) 04/05/23 12:08 AST 24 U/L (0-32) 04/05/23 12:08 ALT 15 U/L (0-33) 04/05/23 12:08 Alkaline Phosphatase 96 U/L (35-105) 04/05/23 12:08 Total Protein 6.6 g/dL (6.6-8.7) 04/05/23 12:08 Albumin 4.2 g/dL (3.5-5.2) 04/05/23 12:08 Globulin 2.4 g/dL (1.3-4.6) 04/05/23 12:08 Lipase 12 U/L (13-60) L 04/05/23 12:08 HCG, Qual Negative (Negative) 04/05/23 12:08 No radiology studies performed this visit Discharge Plan Discharge Patient Disposition: Home Clinical Impression: Cellulitis of abdominal wall Condition: Stable Prescriptions: New Bactrim DS 800-160 mg tablet 1 tab PO BID 7 Days Qty: 14 0RF No Action quetiapine 25 mg tablet 25 mg PO DAILY Qty: 30 1RF Rx Instructions: Take one tablet daily at bedtime; hold if over sedated or groggy bupropion HCl 150 mg tablet extended release 24 hr 150 mg PO DAILY Qty: 30 1RF Rx Instructions: Take one tablet by mouth every morning escitalopram oxalate 20 mg tablet 20 mg PO .q am Qty: 30 1RF Rx Instructions: Take one tablet by mouth every morning Excedrin Migraine 250-250-65 mg Tablet 1 - 2 tab PO Q6H PRN (Reason: Migraine Headache) albuterol sulfate 90 mcg/actuation Hfa Aerosol Inhaler 2 puff INHALATION QID PRN (Reason: Shortness Of Breath) Qty: 6.7 0RF Discharge Orders: Discharge ED (Routine); Ordered 04/05/23 Ordered By: Yelitza Bond Coding Level of Care Code ED Director Of Photography for Beag Jarrell
[2023-04-05 12:31] LABS: HCG, Serum Qual Negative (Negative)
[2023-04-05 12:34] LABS: Alanine Aminotransferase 15 U/L (0-33); Albumin Level 4.2 g/dL (3.5-5.2); Alkaline Phosphatase 96 U/L (35-105); Anion Gap 15.7 (5-19); Aspartate Amino Transferase 24 U/L (0-32); Blood Urea Nitrogen 4 mg/dL (6-20); Calcium 9.1 mg/dL (8.5-10.5); Carbon Dioxide 24 mmol/L (22-29); Chloride 101 mmol/L (98-107); Globulin 2.4 g/dL (1.3-4.6); Glomerular Filtration Rate 114.4 mL/min (90-130); Glucose 123 mg/dL (65-115); Lipase 12 U/L (13-60); Osmolality Calculated 282 mOsm/kg (285-295); Potassium 3.7 mmol/L (3.5-5.1); Sodium 137 mmol/L (136-145); Total Bilirubin 0.6 mg/dL (0.15-1.2); Total Protein 6.6 g/dL (6.6-8.7)
== END 2023-04-05 12:48 | disposition home or self-care (01) ==
PROVIDERS: Emergency Medicine; Emergency Provider Physician Assistant
DX: L03.311 Cellulitis of abdominal wall (principal); Z72.0 Tobacco use
CPT/HCPCS: 36415; 80053; 83690; 84703; 85025; 99283

== ENCOUNTER 2023-04-07 06:40 | Emergency (ER) | payer SELFPAY ==
[2023-04-07 06:51] VITALS: BP 129/64; PULSE 101; RESP 20; TEMP 36.7; O2SAT 99
--- NOTE | 2023-04-07 06:52 | ED_ITS ---
HPI - General Adult General: Chief complaint: General Medical Stated complaint: possible spider bite Time Seen by Provider: 04/07/23 06:41 Source: patient Mode of arrival: ambulatory Limitations: no limitations History of Present Illness: 32-year-old female seen here 2 days ago and had an abscess to her abdomen that was not drainable at that time she has been on Bactrim she does have an area of fluctuance now with increased pain states pain sharp in nature rates it a 7 out of 10 denies any worsening proving factors has had some slight drainage from it Associated symptoms: Deny chest pain, dyspnea, headache(s), nausea, rash or vomiting Review of Systems Const: Denies: fever(s), chills, body aches or change in appetite ENMT: Denies: throat pain or dental pain Card: Denies: chest pain Resp: Denies: dyspnea GI: Denies: abdominal pain, nausea, vomiting or diarrhea Musc: Denies: neck pain or back pain Skin/Breast: Reports: erythema and skin pain; Denies: rash Neuro: Denies: headache(s) PFSH ED PFSH: Medical History No pertinent family history Psychiatric care Bipolar disorder Social History Smoking and tobacco/nicotine status: current every day tobacco/nicotine user Physical Exam Const: COMMON NORMALS: no acute distress, patient oriented x3 and healthy appearing HENMT: COMMON NORMALS: normocephalic and atraumatic HEAD & SCALP: normocephalic and atraumatic Neck/C-Spine: COMMON NORMALS: full ROM and supple Chest: COMMONS NORMALS: normal inspection of the chest and normal palpation of entire chest wall Resp: COMMON NORMALS: normal respiratory effort, No retractions, No use of accessory muscles and clear to auscultation bilaterally AUSCULTATION: clear to auscultation bilaterally Cardio: COMMON NORMALS: regular rate, regular rhythm and No murmurs present (Cardio) RATE: regular rate RHYTHM: regular rhythm GI: COMMON NORMALS: Soft to palpation and non-tender PALPATION: Yes Soft to palpation OTHER: 2 cm abscess to anterior abdomen with daniel rrounding cellulitis Extremity: COMMON NORMALS: normal to inspection and full ROM Neuro: COMMON NORMALS: patient oriented x3, moves all extremities and no focal motor deficits Psych: COMMON NORMALS: mental status grossly normal, Normal thought process present and cooperative THOUGHT PROCESS: Normal thought process present Skin: COMMON NORMALS: no jaundice Procedures Abscess I/D Site: abdomen Local Anesthetic: lidocaine 1% Amount of anesthesia used (mL): 10 Technique: incised with #11 blade Irrigation: No Packing used?: none Course Vital Signs: Vital signs: Vital Signs Temperature 98.1 F 04/07/23 06:51 Pulse Rate 101 H 04/07/23 06:51 Respiratory Rate 20 H 04/07/23 06:51 Blood Pressure 129/64 04/07/23 06:51 Pulse Oximetry 99 04/07/23 06:51 MDM - General Adult Medical Decision Making Patient presents with abscess to anterior abdominal wall abscess was incised and drained with purulent discharge she is to continue her Bactrim do warm compresses return if worsening she understands agrees to plan Medical Records I reviewed the patient's medical records. No radiology studies performed this visit Discharge Plan Discharge Patient Disposition: Home Clinical Impression: Abscess Condition: Stable Prescriptions: New hydrocodone-acetaminophen 5-325 mg tablet 1 tab PO Q6H PRN (Reason: pain) Qty: 14 0RF No Action quetiapine 25 mg tablet 25 mg PO DAILY Qty: 30 1RF Rx Instructions: Take one tablet daily at bedtime; hold if over sedated or groggy bupropion HCl 150 mg tablet extended release 24 hr 150 mg PO DAILY Qty: 30 1RF Rx Instructions: Take one tablet by mouth every morning escitalopram oxalate 20 mg tablet 20 mg PO .q am Qty: 30 1RF Rx Instructions: Take one tablet by mouth every morning Excedrin Migraine 250-250-65 mg Tablet 1 - 2 tab PO Q6H PRN (Reason: Migraine Headache) albuterol sulfate 90 mcg/actuation Hfa Aerosol Inhaler 2 puff INHALATION QID PRN (Reason: Shortness Of Breath) Qty: 6.7 0RF Bactrim DS 800-160 mg tablet 1 tab PO BID 7 Days Qty: 14 0RF Discharge Orders: Discharge ED (Routine); Ordered 04/07/23 Ordered By: Brian Cohen Discharge Diet: Advance as tolerated Discharge Activity: Resume usual activity Patient Instructions: Abscess (ED) Coding Level of Care Code ED Laboratory Tester for Chg Jarrell
[2023-04-07] MEDS: HYDROcodone-acetaminophen 5-325 mg Tablet 1 TAB PO (07:00)
[2023-04-07] MEDS: lidocaine 1% INJ 10 mL (per mL) 20 ML INTRADERMA (07:33)
== END 2023-04-07 07:50 | disposition home or self-care (01) ==
PROVIDERS: Emergency Provider Emergency Medicine
DX: L02.211 Cutaneous abscess of abdominal wall (principal); Z72.0 Tobacco use
CPT/HCPCS: 10060; 96372; 99284; J2060

== ENCOUNTER 2023-04-16 15:59 | Emergency (ER) | payer SELFPAY ==
[2023-04-16 16:01] VITALS: BP 137/96; PULSE 91; RESP 15; TEMP 36.9; O2SAT 100; BMI 24.0
--- NOTE | 2023-04-16 16:19 | ED_ITS ---
HPI - Skin/Abscess/Foreign Bdy 2 General: Chief complaint: Skin/Abscess/Foreign Body Stated complaint: abd pain, spider bite Time Seen by Provider: 04/16/23 16:18 Source: patient Mode of arrival: ambulatory History of Present Illness: 32-year-old female presents emergency ro om with abdominal wall abscess left lower quadrant she was seen for this previously started on oral antibiotics returned and had it incised and drained it is now gotten indurated and tender there is no redness no active drainage the incision from the I&D has healed over is exquisitely tender to the touch she has not had a fever at home complaint: abscess/boil Onset (ago): week(s) Severity: moderate Quality: sharp Exacerbating factors: none Context: none Associated symptoms: Deny arthralgias, chills, cough, fever(s), itching, myalgias, nausea, rigidity, short of breath or vomiting Review of Systems 2 Const: Denies: fever(s) or chills Card: Denies: chest pain Resp: Denies: dyspnea GI: Denies: nausea or vomiting : Denies: dysuria, urinary frequency or urinary urgency Musc: Denies: neck pain or back pain Skin/Breast: Denies: rash PFSH ED 2 PFSH: Medical History No pertinent family history Psychiatric care Bipolar disorder Social History Smoking and tobacco/nicotine status: current every day tobacco/nicotine user Female Reproductive History: Date of last menstrual period: 03/27/23 Physical Exam 2 Const: GENERAL APPEARANCE: cooperative and comfortable O RIENTATION/CONSCIOUSNESS: Yes awake, Yes oriented to person, Yes oriented to place and Yes oriented to time HENMT: COMMON NORMALS: normocephalic, atraumatic and hearing grossly normal bilaterally HEAD & SCALP: normocephalic and atraumatic Resp: COMMON NORMALS: normal respiratory effort, No retractions, No use of accessory muscles and clear to auscultation bilaterally AUSCULTATION: clear to auscultation bilaterally Cardio: COMMON NORMALS: regular rate, regular rhythm and No murmurs present (Cardio) RATE: regular rate RHYTHM: regular rhythm GI: COMMON NORMALS: Soft to palpation and No hepatosplenomegaly present A USCULTATION: Yes normoactive bowel sounds PALPATION: Yes Soft to palpation, No Tenderness to palpation present (GI), No Guarding due to palpation present (GI) and Yes No hepatosplenomegaly present OTHER: Left lower quadrant abdominal wall firm indurated mass about 6 to 8 cm in length 3 cm in height overlying incision from I&D is well-healed no redness no erythema exquisitely tender to touch Extremity: COMMON NORMALS: normal to inspection, capillary refill normal, no clubbing, cyanosis or edema, no calf tenderness and no pedal edema Neuro: SENSORIUM/ORIENTATION: Yes oriented to person, Yes oriented to place and Yes oriented to time Skin: COMMON NORMALS: no rashes or lesions noted GENERAL SKIN EXAM: no rashes or lesions noted Course 2 Vital Signs: Vital signs: Vital Signs Temperature 98.5 F 04/16/23 16:01 Pulse Rate 79 04/16/23 17:03 Respiratory Rate 15 04/16/23 16:01 Blood Pressure 126/88 04/16/23 17:03 Pulse Oximetry 98 04/16/23 17:03 Oxygen Delivery Me thod Room Air 04/16/23 17:03 MDM - Skin/Abscess/Foreign Bdy Medicial Decision Making No abscess on ultrasound there is evidence of tissue inflammation but no phlegmon or fluid collection at this point. Clinically at the bedside there is no overlying induration it is exquisitely tender and very firm. Will treat her for cellulitis start on Bactrim DS 1 p.o. twice daily diclofenac for pain and follow-up if not beginning to improve over the next 4 to 5 days. Medical Records I reviewed the patient's medical records. Lab Data I reviewed the patient's lab results. 04/16/23 17:22 04/16/23 17:22 Radiology Impressions Soft Tissue Ultrasound 04/16/23 16:32 IMPRESSION: 1. No soft tissue abscess identified. 2. Findings consistent with subcutaneous soft tissue edema or cellulitis in the left abdominal wall. Laboratory Results WBC 7.07 10^3/uL (3.29-11.43) 04/16/23 17:22 RBC 3.96 10^6/uL (3.85-5.65) 04/16/23 17:22 Hgb 11.50 g/dL (11.27-16.99) 04/16/23 17:22 Hct 36.6 % (36-47) 04/16/23 17:22 MCV 92.4 fl (85-98) 04/16/23 17:22 MCH 29.0 pg (27-33) 04/16/23 17:22 MCHC 31.4 g/dL (30-55) 04/16/23 17:22 RDW 15.2 % (12.1-15.1) H 04/16/23 17:22 Plt Count 455 10^3/cmm (157-399) H 04/16/23 17:22 MPV 9.0 fL (7.4-10.4) 04/16/23 17:22 Neut % (Auto) 67.2 % 04/16/23 17:22 Lymph % (Auto) 25.6 % 04/16/23 17:22 [place] % (Auto) 4.7 % 04/16/23 17:22 Eos % (Auto) 1.6 % 04/16/23 17:22 Baso % (Auto) 0.6 % 04/16/23 17:22 Neut # (Auto) 4.76 10^3/uL (1.8-7.7) 04/16/23 17:22 Lymph # (Auto) 1.8 10^3/uL (0.8-4.8) 04/16/23 17:22 [place] # (Auto) 0.3 10^3/uL (0.2-0.9) 04/16/23 17:22 Eos # (Auto) 0.1 10^3/uL (0.0-0.8) 04/16/23 17:22 Baso # (Auto) 0.0 10^3/uL (0.0-0.1) 04/16/23 17:22 Nucleated RBC % (auto) 0 % 04/16/23 17:22 Nucleated RBCs # 0.0 /100WBC 04/16/23 17:22 All radiology interpretation(s) finalized by discharge Discharge Plan Discharge Patient Disposition: Home Clinical Impression: Cellulitis Condition: Stable Prescriptions: New Bactrim DS 800-160 mg tablet 1 tab PO BID 10 Days Qty: 20 0RF diclofenac sodium 75 mg tablet,delayed release (DR/EC) 75 mg PO Q12H PRN (Reason: pain) Qty: 20 0RF No Action quetiapine 25 mg tablet 25 mg PO DAILY Qty: 30 1RF Rx Instructions: Take one tablet daily at bedtime; hold if over sedated or groggy bupropion HCl 150 mg tablet extended release 24 hr 150 mg PO DAILY Qty: 30 1RF Rx Instructions: Take one tablet by mouth every morning escitalopram oxalate 20 mg tablet 20 mg PO .q am Qty: 30 1RF Rx Instructions: Take one tablet by mouth every morning Excedrin Migraine 250-250-65 mg Tablet 1 - 2 tab PO Q6H PRN (Reason: Migraine Headache) albuterol sulfate 90 mcg/actuation Hfa Aerosol Inhaler 2 puff INHALATION QID PRN (Reason: Shortness Of Breath) Qty: 6.7 0RF hydrocodone-acetaminophen 5-325 mg tablet 1 tab PO Q6H PRN (Reason: pain) Qty: 14 0RF Discharge Orders: Discharge ED (Routine); Ordered 04/16/23 Ordered By: Ad Maradiaga Discharge Diet: Usual diet Discharge Activity: Increase activity as tolerated Patient Instructions: Opioid Safety, Pain Management Activity Restrictions/Additional Instructions: Thank you for choosing [facility] for your healthcare needs today. Please realize this is an emergency room and that we are providing you with a medical screening exam and this may not be complete and all inclusive of all the testing and or work up that you may need to determine your ailment or severity of your illness. It is very important that you follow up as instructed or that you return to the Emergency Department should you have concerns or if your condition changes or worsens in any way. You were seen today for complaint of possible infection or tenderness in the abdominal wall in the area of this previously drained. Ultrasound does not show any fluid collection there is some moderate irritation I recommend you start an oral antibiotic. This should slowly improve over time as you are on the antibiotic if it does not recommend you follow-up with your primary care doctor or at the urgent care clinic. Stand Alone Forms: Work/School Release Coding Level of Care Code ED Research Affili[employer] for Carola Vieyra
--- NOTE | 2023-04-16 16:32 | USR_ITS ---
PROCEDURE INFORMATION: Exam: US Abdomen, Limited; Soft Tissue Exam date and time: 04/16/2023 5:08 PM Age: 32 years old Clinical indication: Mass, lump, or swelling; Llq; Additional info: Abd wall/sub cutaneous abscess TECHNIQUE: Imaging protocol: US abdomen. Real time ultrasound with image documentation. Limited exam focused on the soft tissues. COMPARISON: No relevant prior studies available. FINDINGS: Soft tissues: Targeted imaging in the region of redness and swelling in the left abdominal wall demonstrates mild skin thickening and increased echogenicity of the superficial subcutaneous fat. No organized fluid collection or abscess. US/US soft tissue/extremity [id number] IMPRESSION: 1. No soft tissue abscess identified. 2. Findings consistent with subcutaneous soft tissue edema or cellulitis in the left abdominal wall.
[2023-04-16 16:59] VITALS: BP 130/91; PULSE 85; O2SAT 100
[2023-04-16 17:03] VITALS: BP 126/88; PULSE 79; O2SAT 98
[2023-04-16] MEDS: ketorolac 30 mg/mL INJ 60 MG IM (17:03)
[2023-04-16 17:27] LABS: Basophils % 0.6 %; Eosinophils # 0.1 10^3/uL (0.0-0.8); Eosinophils % 1.6 %; Hematocrit 36.6 % (36-47); Lymphocytes # 1.8 10^3/uL (0.8-4.8); Lymphocytes % 25.6 %; Mean Corpuscular HGB Conc 31.4 g/dL (30-55); Mean Corpuscular Volume 92.4 fl (85-98); Monocytes # 0.3 10^3/uL (0.2-0.9); Monocytes % 4.7 %; Neutrophils # 4.76 10^3/uL (1.8-7.7); Neutrophils % 67.2 %; Nucleated Red Blood Cells % 0 %; Platelet Count 455 10^3/cmm (157-399); Red Blood Count 3.96 10^6/uL (3.85-5.65); Red Cell Distribution Width 15.2 % (12.1-15.1); White Blood Count 7.07 10^3/uL (3.29-11.43)
[2023-04-16 17:54] LABS: Anion Gap 14.9 (5-19); Blood Urea Nitrogen 8 mg/dL (6-20); Calcium 9.1 mg/dL (8.5-10.5); Carbon Dioxide 26 mmol/L (22-29); Chloride 101 mmol/L (98-107); Glomerular Filtration Rate 114.4 mL/min (90-130); Glucose 92 mg/dL (65-115); Osmolality Calculated 284 mOsm/kg (285-295); Potassium 3.9 mmol/L (3.5-5.1); Sodium 138 mmol/L (136-145)
[2023-04-16 17:58] VITALS: BP 132/83; PULSE 78; O2SAT 98
== END 2023-04-16 17:50 | disposition home or self-care (01) ==
PROVIDERS: Emergency Provider Family Medicine
DX: L03.311 Cellulitis of abdominal wall (principal); Z72.0 Tobacco use
CPT/HCPCS: 36415; 76882; 80048; 85025; 96372; 99284; J1885

== ENCOUNTER 2023-05-10 13:59 | Emergency (ER) | payer SELFPAY ==
[2023-05-10 14:18] VITALS: BP 131/83; PULSE 92; RESP 17; TEMP 36.8; O2SAT 100
--- NOTE | 2023-05-10 15:17 | ED_ITS ---
HPI - Dental/Oral 2 General: Chief complaint: Dental/Oral Stated complaint: swollen face left side Time Seen by Provider: 05/10/23 15:12 Source: patient Mode of arrival: ambulatory Limitations: no limitations History of Present Illness: Patient is a 32-year-old female presents to ED today with a complaint of left lower molar dental pain over the past several days. She states she woke up this morning with left side of her face swollen. She tried to contact her dentist Dr. Mcfarland today but their office is closed on Fridays. Patient states she is able to swallow normally. She has not noticed any muffled voice. She is controlling secretions. She has not noticed any neck swelling or fevers. MD Complaint: tooth pain Teeth map: 1. Onset (ago): day(s) Duration: constant Severity: severe Severity scale (1-10): 10 Exacerbating factors: chewing Context: history of dental caries and poor dental care Associated symptoms: Reports no associated symptoms; Denies ear or mastoid pain, fever(s) or odynophagia Treatment prior to arrival: none Review of Systems 2 Const: Denies: fever(s), chills, body aches, fatigue or malaise ENMT: Reports: dental pain; Denies: throat pain, odynophagia, mouth pain, swelling of lips/tongue, oral sores, ear or mastoid pain, nasal discharge, nasal congestion or sinus pain Card: Denies: chest pain Resp: Denies: dyspnea GI: Denies: nausea or vomiting Musc: Denies: neck pain, back pain, extremity pain or joint pain Skin/Breast: Denies: rash Neuro: Denies: headache(s), numbness in extremities, weakness in extremities or sensory changes PFSH ED 2 PFSH: Medical History No pertinent family history Psychiatric care Bipolar disorder Social History Smoking and tobacco/nicotine status: current every day tobacco/nicotine user Physical Exam 2 Const: COMMON NORMALS: no acute distress, average body habitus, patient oriented x3, no limitations, alert and well nourished GENERAL APPEARANCE: c ooperative and in distress (appears uncomfortable secondary to pain) HENMT: FACE & SINUS: sinuses nontender, face symmetric and other (mild L sided swelling) FACE & SINUS IMAGES: 1. mild swelling/no abscess MOUTH: Normal oral and palatal mucosa present and lip normal TEETH & GINGIVA: Yes poor dentition TEETH & GINGIVA IMAGES: 1. severely decayed/broken molars; no abscess formation; mild L facial swelling; no submandibular swelling THROAT: posterior oropharynx normal Neck/C-Spine: COMMON NORMALS: no lymphadenopathy GENERAL: Yes normal visual inspection, No anterior neck swelling and No submandibular swelling Resp: COMMON NORMALS: normal respiratory effort and clear to auscultation bilaterally AUSCULTATION: clear to auscultation bilaterally Cardio: COMMON NORMALS: regular rate and regular rhythm RATE: regular rate RHYTHM: regular rhythm Neuro: COMMON NORMALS: patient oriented x3 SENSORIUM/ORIENTATION: Yes alert Course 2 Vital Signs: Vital signs: Vital Signs Temperature 98.2 F 05/10/23 14:18 Pulse Rate 92 05/10/23 14:18 Respiratory Rate 17 05/10/23 14:18 Blood Pressure 131/83 05/10/23 14:18 Pulse Oximetry 100 05/10/23 14:18 MDM - Dental/Oral Medical Decision Making Patient will be provided prescriptions for antibiotics and pain medications. Recommend prompt follow-up with her dentist next week. No radiology studies performed this visit Discharge Plan Discharge Patient Disposition: Home Clinical Impression: Dental caries, Toothache Condition: Stable Prescriptions: New clindamycin HCl 300 mg capsule 300 mg PO Q6H 7 Days Qty: 28 0RF acetaminophen-codeine 300-30 mg tablet 1 tab PO Q6H PRN (Reason: pain) Qty: 10 0RF Discontinued hydrocodone-acetaminophen 5-325 mg tablet 1 tab PO Q6H PRN (Reason: pain) Qty: 14 0RF diclofenac sodium 75 mg tablet,delayed release (DR/EC) 75 mg PO Q12H PRN (Reason: pain) Qty: 20 0RF No Action quetiapine 25 mg tablet 25 mg PO DAILY Qty: 30 0RF Rx Instructions: Take one tablet daily at bedtime; hold if over sedated or groggy escitalopram oxalate 20 mg tablet 20 mg PO .q am Qty: 30 0RF Rx Instructions: Take one tablet by mouth every morning bupropion HCl 150 mg tablet extended release 24 hr 150 mg PO DAILY Qty: 30 0RF Rx Instructions: Take one tablet by mouth every morning Excedrin Migraine 250-250-65 mg Tablet 1 - 2 tab PO Q6H PRN (Reason: Migraine Headache) albuterol sulfate 90 mcg/actuation Hfa Aerosol Inhaler 2 puff INHALATION QID PRN (Reason: Shortness Of Breath) Qty: 6.7 0RF Discharge Orders: Discharge ED (Routine); Ordered 05/10/23 Ordered By: Yelitza Bond Patient Instructions: Dental Caries (Cavities), Toothache (ED) Activity Restrictions/Additional Instructions: As we discussed please follow-up with your dentist as soon as possible. Your prescriptions have been E scripted to your pharmacy on file. 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
[2023-05-10 15:46] VITALS: BP 121/85; PULSE 83; O2SAT 100
== END 2023-05-10 15:47 | disposition home or self-care (01) ==
PROVIDERS: Emergency Provider Physician Assistant
DX: K02.9 Dental caries, unspecified (principal); K08.89 Other specified disorders of teeth and supporting structures; Z72.0 Tobacco use
CPT/HCPCS: 99283

== ENCOUNTER 2023-08-02 15:36 | Emergency (ER) | payer SELFPAY ==
[2023-08-02 15:45] VITALS: BP 132/77; PULSE 78; RESP 16; TEMP 36.9; O2SAT 98
--- NOTE | 2023-08-02 15:58 | ED_ITS ---
HPI - Headache General: Chief Complaint: Headache Stated Complaint: migraine x3 days Time Seen by Provider: 08/02/23 15:52 Source: patient Mode of arrival: other (Custody of law enforcement) History of Present Illness: 33-year-old female presents to the emerg ency room in the custody of law enforcement. She has a history of migraines also has a history of sleep apnea and she has not been able to use her CPAP while in custody. She states headache is similar to what she has had in the past usually she takes Excedrin Migraine or other similar medications [id number] and that will relieve it. She has a history of methamphetamine abuse. States current headache is been going on for the last 2 to 3 days. She has some nausea with it as well. MD elicited complaint: headache Onset description: gradually Location: left, frontal and temporal Severity: moderate Quality & Timing: throbbing Exacerbating factors: none Relieving factors: nothing Associated symptoms: Reports photophobia and sound sensitivity; Deny chest pain, confusion, cough, diaphoresis, eye pain, eye redness, fever(s), lightheadedness, loss of vision, malaise, nausea, neck stiffness, numbness, paresthesias, pre-syncope, rash, seizures, short of breath, syncope, vomiting or weakness Treatments prior to arrival: none Review of Systems Const: Denies: fever(s), malaise or diaphoresis Card: Denies: chest pain, lightheadedness, syncope or pre-syncope Resp: Denies: dyspnea GI: Denies: nausea or vomiting : Denies: dysuria, urinary frequency or urinary urgency Musc: Denies: neck pain or back pain Skin/Breast: Denies: rash Neuro: Denies: confusion PFSH ED PFSH: Medical History No pertinent family history Psychiatric care Bipolar disorder Social History Smoking and tobacco/nicotine status: current every day tobacco/nicotine user Physical Exam Const: COMMON NORMALS: no acute distress GENERAL APPEARANCE: cooperative and comfortable ORIENTATION/CONSCIOUSNESS: Yes awake, Yes oriented to person, Yes oriented to place and Yes oriented to time HENMT: COMMON NORMALS: normocephalic, atraumatic and hearing grossly normal bilaterally HEAD & SCALP: normocephalic and atraumatic Eye: DIRECT OPHTHALMOSCOPY: Yes photophobia Resp: COMMON NORMALS: normal respiratory effort, No retractions, No use of accessory muscles and clear to auscultation bilaterally AUSCULTATION: clear to auscultation bilaterally Cardio: COMMON NORMALS: regular rate, regular rhythm and No murmurs present (Cardio) RATE: regular rate RHYTHM: regular rhythm GI: COMMON NORMALS: Soft to palpation and No hepatosplenomegaly present AUSCULTATION: Yes normoactive bowel sounds PALPATION: Yes Soft to palpation, No Tenderness to palpation present (GI), No Guarding due to palpation present (GI) and Yes No hepatosplenomegaly present Extremity: COMMON NORMALS: normal to inspection, capillary refill normal, no clubbing, cyanosis or edema, no calf tenderness and no pedal edema Neuro: SENSORIUM/ORIENTATION: Yes oriented to person, Yes oriented to place and Yes oriented to time Skin: COMMON NORMALS: no rashes or lesions noted GENERAL SKIN EXAM: no rashes or lesions noted Course Vital Signs: Vital signs: Vital Signs Temperature 98.4 F 08/02/23 15:45 Pulse Rate 73 08/02/23 17:17 Respiratory Rate 16 08/02/23 15:45 Blood Pressure 96/63 08/02/23 17:17 Pulse Oximetry 95 08/02/23 17:17 Oxygen Delivery Me thod Room Air 08/02/23 17:17 MDM - Headache Medical Decision Making Headache improved with medications given discharged home encouraged to treat her sleep apnea as I think this will help her control her headaches. Tylenol or Profen if has any recurrences. No radiology studies performed this visit Discharge Plan Discharge Patient Disposition: Home Clinical Impression: Migraine Condition: Stable Prescriptions: No Action Excedrin Migraine 250-250-65 mg Tablet 1 - 2 tab PO Q6H PRN (Reason: Migraine Headache) escitalopram oxalate 20 mg tablet 20 mg PO QAM bupropion HCl 150 mg tablet extended release 24 hr 150 mg PO QAM quetiapine 50 mg tablet 50 mg PO BEDTIME Discharge Orders: Discharge ED (Routine); Ordered 08/02/23 Ordered By: Ad Maradiaga Discharge Diet: Usual diet Discharge Activity: Resume usual activity Patient Instructions: Opioid Safety, Pain Management Activity Restrictions/Additional Instructions: Thank you for choosing [facility] for your healthcare needs today. Please realize this is an emergency room and that we are providing you with a medical screening exam and this may not be complete and all inclusive of all the testing and or work up that you may need to determine your ailment or severity of your illness. It is very important that you follow up as instructed or that you return to the Emergency Department should you have concerns or if your condition changes or worsens in any way. You are seen today for headache you responded well to the medications given. Can use Tylenol ibuprofen or Benadryl as needed for headaches if they recur. Strongly recommend appropriate treatment of your sleep apnea to help minimize headaches. Coding Level of Care Code ED Research Management Associate for Carola Vieyra
[2023-08-02] MEDS: sodium chloride 0.9% 1,000 ML 999 ML IV (16:16)
[2023-08-02] MEDS: diphenhydrAMINE 50 mg/mL SDV 1mL IVP (16:16)
[2023-08-02] MEDS: metoclopramide 5 mg/mL SDV 2 mL 10 MG IVP (16:18)
[2023-08-02] MEDS: valproic acid inj 500 MG in sodium chloride 0.9% (plus) 50 ML 55 MG IV (16:23)
[2023-08-02 17:17] VITALS: BP 96/63; PULSE 73; O2SAT 95
== END 2023-08-02 17:47 | disposition home or self-care (01) ==
PROVIDERS: Emergency Provider Family Medicine
DX: G43.909 Migraine, unspecified, not intractable, without status migrainosus (principal); Z72.0 Tobacco use
CPT/HCPCS: 96365; 96375; 99284; J1200; J2765; J3490; J7030

== ENCOUNTER 2024-02-11 07:35 | Emergency (ER) | payer SELFPAY ==
[2024-02-11 07:45] VITALS: BP 133/99; PULSE 77; RESP 18; TEMP 36.8; O2SAT 100; BMI 25.7
--- NOTE | 2024-02-11 09:13 | W.ED.FEMALGU ---
HPI - Female Genitourinary General: Chief complaint: Urogenital-Female Stated complaint: wants std panel Time Seen by Provider: 02/11/24 08:21 Source: patient Mode of arrival: ambulatory Limitations: no limitations History of Present Illness: Patient is a 33-year-old female here stating she would like to be tested for trichomonas as she had sexual contact with a patient who is known positive. She thinks she may be has had increased vaginal discharge and did notice a small amount of odor this morning. She is not having any pelvic pain or vaginal itching. No fevers. Denies UTI-like symptoms. MD elicited complaint: possible STD Onset (ago): day(s) Severity: mild Consistency: intermittent Vaginal discharge: white and yellow Vaginal bleeding: none Exacerbating factors: none Relieving factors: none Associated symptoms: Reports no associated symptoms and vaginal discharge; Deny abdominal pain, headache(s) or nausea Treatment prior to arrival: none Sexual activity: Yes Patient : No Related Data Home Medications Medication Instructions Recorded Confirmed [id number] 250 1 - 2 tab PO Q6H PRN Migraine 09/21/20 02/11/24 mg-250 mg-65 mg tablet (Excedrin Headache Migraine) bupropion HCl 150 mg 24 hr tablet, 150 mg PO QAM 08/02/23 02/11/24 extended release escitalopram oxalate 20 mg tablet 20 mg PO QAM 08/02/23 02/11/24 quetiapine 50 mg tablet 50 mg PO BEDTIME 08/02/23 02/11/24 acetaminophen 325 mg tablet 325 mg PO QID PRN Headache 02/11/24 02/11/24 (Tylenol) albuterol sulfate 90 mcg/actuation 1 - 2 inh inhalation PRN PRN asthma 02/11/24 02/11/24 aerosol inhaler (Ventolin HFA) hydroxyzine pamoate 50 mg capsule 200 mg PO BEDTIME 02/11/24 02/11/24 ibuprofen 200 mg tablet (Advil) 600 mg PO Q6H PRN Pain 02/11/24 02/11/24 mirtazapine 15 mg disintegrating 15 mg PO BEDTIME 02/11/24 02/11/24 tablet naproxen 250 mg tablet 250 mg PO BID 02/11/24 02/11/24 Previous Rx's Medication Instructions Recorded metronidazole 500 mg tablet 500 mg PO BID 7 days #14 tabs 02/11/24 Allergies Allergy/AdvReac Type Severity Reaction Status Date / Time ketorolac [From Toradol] Allergy ADR-Headach Verified 08/02/23 15:51 e Penicillins Allergy Unresponsiv Verified 05/21/23 15:23 e tramadol Allergy Seizures Verified 05/21/23 15:23 trazodone Allergy Seizures Verified 05/21/23 15:23 Review of Systems Const: Denies: fever(s) Card: Denies: chest pain Resp: Denies: dyspnea GI: Denies: abdominal pain, nausea, vomiting or diarrhea : Reports: vaginal odor and vaginal discharge; Denies: flank pain, difficulty voiding, dysuria, urinary frequency, urinary urgency, urinary hesitancy, hematuria, genital lesions, genital pruritis, vaginal bleeding or pelvic pain Musc: Denies: neck pain, back pain, extremity pain, extremity swelling, joint pain or joint swelling Skin/Breast: Denies: rash Neuro: Denies: headache(s), numbness in extremities, weakness in extremities or sensory changes PFSH ED PFSH: Medical History No pertinent family history Psychiatric care Bipolar disorder Social History Smoking and tobacco/nicotine status: current every day tobacco/nicotine user Physical Exam Const: COMMON NORMALS: no acute distress, average body habitus, patient oriented x3, no limitations, healthy appearing, alert and well nourished GI: COMMON NORMALS: Normal to inspection, nondistended, normoactive bowel sounds present, Soft to palpation, non-tender, No hepatosplenomegaly present and no masses PALPATION: Yes Soft to palpation and Yes No hepatosplenomegaly present : COMMON NORMALS: Yes no CVA tenderness BLADDER/KIDNEY EXAM: Yes no CVA tenderness OTHER: deferred Back/Pelvis: COMMON NORMALS: no CVA tenderness Neuro: COMMON NORMALS: patient oriented x3 SENSORIUM/ORIENTATION: Yes alert Course Vital Signs: Vital signs: Vital Signs Temperature 98.3 F 02/11/24 07:45 Pulse Rate 77 02/11/24 07:45 Respiratory Rate 18 02/11/24 07:45 Blood Pressure 133/99 02/11/24 07:45 Pulse Oximetry 100 02/11/24 07:45 Oxygen Delivery Me thod Room Air 02/11/24 07:45 MDM - Female Medical Decision Making Patient will be treated prophylactically due to her known positive exposure with Flagyl. Her UA is unremarkable. negative. We did have her self collected for wet prep and gonorrhea/chlamydia. She will be contacted for any positive results. Discussed testing/treatment of any further sexual partners. Medical Records I reviewed the patient's medical records. Lab Data Laboratory Results HCG, Qual Negative (Negative) 02/11/24 09:35 Urine Color Yellow (Yellow) 02/11/24 09:07 Urine Appearance Clear (CLEAR) 02/11/24 09:07 Urine pH 7.0 (5-7) 02/11/24 09:07 Ur Specific [place] 1.006 (1.005-1.030) 02/11/24 09:07 Urine Protein Negative (Negative) 02/11/24 09:07 Urine Glucose (UA) Negative (Normal) 02/11/24 09:07 Urine Ketones Negative (Negative) 02/11/24 09:07 Urine Blood Negative (Negative) 02/11/24 09:07 Urine Nitrate Negative (Negative) 02/11/24 09:07 Urine Bilirubin Negative (Negative) 02/11/24 09:07 Urine Urobilinogen 0.2 mg/dL (Negative) 02/11/24 09:07 Ur Leukocyte Esterase Negative (Negative) 02/11/24 09:07 Urine RBC 0-2 /hpf (0-2) 02/11/24 09:07 Urine WBC 0-5 /hpf (0-5) 02/11/24 09:07 Ur Squamous Epith Cells 0-5 /hpf (0-5) 02/11/24 09:07 Amorphous Sediment Not Reportable 02/11/24 09:07 Urine Bacteria None seen /hpf (NONE) 02/11/24 09:07 Hyaline Casts 0-4 /lpf H 02/11/24 09:07 No radiology studies performed this visit Discharge Plan Discharge Patient Disposition: Home Clinical Impression: Exposure to sexually transmitted disease (STD) Condition: Stable Prescriptions: New metronidazole 500 mg tablet 500 mg PO BID 7 Days Qty: 14 0RF No Action Excedrin Migraine 250-250-65 mg Tablet 1 - 2 tab PO Q6H PRN (Reason: Migraine Headache) escitalopram oxalate 20 mg tablet 20 mg PO QAM bupropion HCl 150 mg tablet extended release 24 hr 150 mg PO QAM quetiapine 50 mg tablet 50 mg PO BEDTIME albuterol sulfate [Ventolin HFA] 90 mcg/actuation Hfa Aerosol Inhaler 1 - 2 inh INHALATION PRN PRN (Reason: asthma) acetaminophen [Tylenol] 325 mg Tablet 325 mg PO QID PRN (Reason: Headache) naproxen 250 mg tablet 250 mg PO BID hydroxyzine pamoate 50 mg Capsule 200 mg PO BEDTIME ibuprofen [Advil] 200 mg Tablet 600 mg PO Q6H PRN (Reason: Pain) mirtazapine 15 mg Tablet,Disintegrating 15 mg PO BEDTIME Discharge Orders: Discharge ED (Routine); Ordered 02/11/24 Ordered By: Yelitza Bond Activity Restrictions/Additional Instructions: As we discussed, we will treat you prophylactically for your known positive exposure to trichomonas. You need to abstain from sexual activity until antibiotics are complete. Any current sexual partners need to receive testing. This can be completed at the health department. Coding Level of Care Code ED Hotel Maintenance Worker for Carola Vieyra
[2024-02-11 09:44] LABS: Bilirubin Urine Negative (Negative); Blood Urine Negative (Negative); Glucose Urine UA Negative (Normal); Ketones Urine Negative (Negative); Leukocyte Esterase Urine Negative (Negative); Nitrate Urine Negative (Negative); Protein Urine Negative (Negative); Specific Gravity, Urine 1.006 (1.005-1.030); Urine Appearance Clear (CLEAR); Urine Color Yellow (Yellow); Urobilinogen Urine 0.2 mg/dL (Negative)
[2024-02-11 09:47] LABS: Add Urine Microscopic? YES; Bacteria Urine None Seen /hpf; Hyaline Casts Urine 0-4 /lpf; RBC Urine 0-2 /hpf (0-2); Squamous Epithelial Cell Urine 0-5 /hpf (0-5); WBC Urine 0-5 /hpf (0-5)
[2024-02-11 10:06] LABS: HCG, Serum Qual Negative (Negative)
[2024-02-11 10:32] VITALS: BP 137/81; PULSE 81; O2SAT 99
[2024-02-12 17:04] LABS: Chlamydia Trachomatis RNA TMA NOT DETECTED (NOT DETECTED); Neisseria Gonorrhoeae RNA, TMA DETECTED (NOT DETECTED)
== END 2024-02-11 10:33 | disposition home or self-care (01) ==
PROVIDERS: Family Medicine; Emergency Provider Physician Assistant
DX: Z20.2 Contact with and (suspected) exposure to infections with a predominantly sexual mode of transmission (principal); Z72.0 Tobacco use
CPT/HCPCS: 36415; 81001; 84703; 87210; 87491; 87591; 99283

== ENCOUNTER 2024-10-26 18:17 | Emergency (ER) | payer MEDICAID, SELFPAY ==
--- NOTE | 2024-10-26 18:19 | XRR_ITS ---
PROCEDURE INFORMATION: Exam: XR Left Wrist Exam date and time: 10/26/2024 7:08 PM Age: 34 years old Clinical indication: Left; Lt wrist pain after twisting injury TECHNIQUE: Imaging protocol: Radiologic exam of the left wrist. Views: 3 or more views. COMPARISON: No relevant prior studies available. FINDINGS: Bones/joints: Normal. Soft tissues: Normal. XR/XR wrist LT min 3V* [id number] IMPRESSION: No acute findings.
[2024-10-26 18:22] VITALS: BP 153/69; PULSE 68; TEMP 36.7; O2SAT 98
--- OUTSIDE RECORDS SUMMARY | 2024-10-26 18:28 | XMS_ITS | Clinical Summary ---
Author Organization [facility] Address [address] [place] [address] Phone Care Team Providers Care Towboat Pilot Name Role Phone Unavailable Primary Care Provider Unavailabl e Allergies Active Allergy Reactions Criticality Noted Date Comments Penicillins Anaphylaxis High 01/20/2014 Medications albuterol HFA 90 mcg inhaler Take 2 Puffs by inhalation every 6 hours as needed for Shortness of Breath. Active naproxen (NAPROSYN) 500 mg tablet Take 500 mg by mouth 2 times daily as needed for Pain, Moderate. Active Social History Tobacco Use Types Packs/Day Years Used Date Smoking Tobacco: Every Day Cigarettes Smokeless Tobacco: Never Alcohol Use Standard Drinks/Week Comments No 0 (1 standard drink = 0.6 oz pur e alcohol) Comments Unknown Sex and Gender Information Value Date Recorded Sex Assigned at Not on file Legal Sex Female 10:18 AM CDT Gender Identity Not on file Sexual Orientation Not on file Last Filed Vital Signs Vital Sign Reading Time Taken Comments Blood Pressure 140/70 07/07/2020 2:00 PM CDT Pulse 88 01/20/2014 10:28 AM CDT Temperature 36.5 C (97.7 F) 07/07/2020 12:51 PM CDT Respiratory Rate 20 07/07/2020 2:00 PM CDT Oxygen Saturation 100% 07/07/2020 2:00 PM CDT Inhaled Oxygen Concentration - - Weight 47.8 kg (105 lb 6.4 oz) 07/07/2020 12:51 PM CDT Height 162.6 cm (5' 4 ) 07/07/2020 12:51 PM CDT Body Mass Index 18.09 07/07/2020 12:51 PM CDT Plan of Treatment Health Maintenance Due Date Last Done Comments DTAP/TDAP/TD VACCINES (1 - Tdap) 07/04/2007 HEPATITIS B VACCINES (1 of 3 - 19+ 3-dose series) 07/04/2007 HPV/Cotest (21-29) 2009 CERVICAL CANCER SCREENING 2018 HPV/Cotest (30-65) 2018 PAP SMEAR 2018 INFLUENZA VACCINE (#1) 2024 HPV VACCINES Aged Out No longer eligi ble based on patient's age to complete this topic
--- NOTE | 2024-10-26 19:28 | W.ED.EXTPRO ---
HPI - Extremity Problem General: Chief complaint: Extremity Injury, Upper Stated complaint: L wrist poped painful Time Seen by Provider: 10/26/24 19:16 History of Present Illness: 34yo female presents with left wrist pain and swelling after squeezing a frozen gatorade bottle last night. States she felt a pop in her wrist at the time, but did not really have pain. Reports the pain started when she woke up this morning. She states that she is left-hand dominant. States increased pain with twisting of the wrist. She denies any other injury or concern at this time. Associated symptoms: Deny fever(s) Related Data Home Medications ?Medication ?Instructions ?Recorded ?Confirmed [id number] 250 1 - 2 tab PO Q6H PRN Migraine 09/21/20 02/11/24 mg-250 mg-65 mg tablet (Excedrin Headache Migraine) bupropion HCl 150 mg 24 hr tablet, 150 mg PO QAM 08/02/23 02/11/24 extended release escitalopram oxalate 20 mg tablet 20 mg PO QAM 08/02/23 02/11/24 quetiapine 50 mg tablet 50 mg PO BEDTIME 08/02/23 02/11/24 acetaminophen 325 mg tablet 325 mg PO QID PRN Headache 02/11/24 02/11/24 (Tylenol) albuterol sulfate 90 mcg/actuation 1 - 2 inh inhalation PRN PRN asthma 02/11/24 02/11/24 aerosol inhaler (Ventolin HFA) hydroxyzine pamoate 50 mg capsule 200 mg PO BEDTIME 02/11/24 02/11/24 ibuprofen 200 mg tablet (Advil) 600 mg PO Q6H PRN Pain 02/11/24 02/11/24 mirtazapine 15 mg disintegrating 15 mg PO BEDTIME 02/11/24 02/11/24 tablet naproxen 250 mg tablet 250 mg PO BID 02/11/24 02/11/24 Allergies Allergy/AdvReac Type Severity Reaction Status Date / Time ketorolac (From Toradol) Allergy ADR-Headach Verified 10/26/24 18:26 e Penicillins Allergy Unresponsiv Verified 10/26/24 18:26 e tramadol Allergy Seizures Verified 10/26/24 18:26 trazodone Allergy Seizures Verified 10/26/24 18:26 Review of Systems Const: Denies: fever(s), chills or body aches Musc: Reports: extremity pain (right wrist) [facility]: Medical History (Updated 10/26/24 @ 20:32 by ALIA Estevez) No pertinent family history Bipolar disorder Social History Smoking and tobacco/nicotine status: current every day tobacco/nicotine user Physical Exam Const: COMMON NORMALS: no acute distress, patient oriented x3, healthy appearing and alert GENERAL APPEARANCE: cooperative ORIENTATION/CONSCIOUSNESS: Yes awake OTHER: Patient is ambulatory to the exam room unassisted. She is sitting upright in the vertical flow recliner in no acute distress. She is able to give history with no difficulty. She is interactive with exam appropriately. No family at bedside at time of exam HENMT: COMMON NORMALS: normocephalic and atraumatic HEAD & SCALP: normocephalic and atraumatic Chest: CHEST: Yes Symmetrical chest wall rise Resp: COMMON NORMALS: normal respiratory effort EFFORT & INSPECTION: Yes able to speak in complete sentences Extremity: LEFT UPPER EXTREMITY: Yes wrist Left wrist: Yes inspection (mild swelling), Yes palpation (tenderness ulnar styloid area) and Yes ROM (decreased pronation/supination d/t pain) OTHER: +movement left fingers, Radial pulse 2+, capillary refill < 3 sec Neuro: COMMON NORMALS: patient oriented x3 SENSORIUM/ORIENTATION: Yes alert Course Vital Signs: Vital signs: Vital Signs Temperature 98.1 F 10/26/24 18:22 Pulse Rate 68 10/26/24 18:22 Blood Pressure 153/69 10/26/24 18:22 Pulse Oximetry 98 10/26/24 18:22 Oxygen Delivery Me thod Room Air 10/26/24 18:22 MDM - Extremity (Nontraumatic) Medical Decision Making 34yo female presents with left wrist pain and swelling after squeezing a frozen gatorade bottle last night. States she felt a pop in her wrist at the time, but did not really have pain. Reports the pain started when she woke up this morning. She states that she is left-hand dominant. States increased pain with twisting of the wrist. She denies any other injury or concern at this time. Patient is nontoxic in appearance. Vital signs are stable. No fracture or acute bony abnormality noted on x-ray, pending radiology review. Delay in finalizing x-ray, will proceed with discharge. Velcro cock up splint provided for patient. Discussed this is likely a sprain. Patient did report increased pain, as she did receive 800 mg ibuprofen as well as tizanidine in the emergency department. Recommend rest, ice, elevation, and range of motion exercises. Advised to follow-up with primary care, calling later this week with an update and to schedule a recheck. Return precautions provided. Patient states understanding and has no further questions or concerns at this time. Medical Records I reviewed the patient's medical records. XR interpretation done by ED provider, pending radiology final review ED provider radiology interpretation(s): No fracture or acute bony abnormality noted, pending radiology review Discharge Plan Discharge Patient Disposition: Home Clinical Impression: Left wrist sprain Qualifiers: Encounter type: initial encounter Wrist sprain location: unspecified location Qualified Code(s): S63.502A - Unspecified sprain of left wrist, initial encounter Condition: Stable Prescriptions: No Action Excedrin Migraine 250-250-65 mg Tablet 1 - 2 tab PO Q6H PRN (Reason: Migraine Headache) escitalopram oxalate 20 mg tablet 20 mg PO QAM bupropion HCl 150 mg tablet extended release 24 hr 150 mg PO QAM quetiapine 50 mg tablet 50 mg PO BEDTIME albuterol sulfate [Ventolin HFA] 90 mcg/actuation Hfa Aerosol Inhaler 1 - 2 inh INHALATION PRN PRN (Reason: asthma) acetaminophen [Tylenol] 325 mg Tablet 325 mg PO QID PRN (Reason: Headache) naproxen 250 mg tablet 250 mg PO BID hydroxyzine pamoate 50 mg Capsule 200 mg PO BEDTIME ibuprofen [Advil] 200 mg Tablet 600 mg PO Q6H PRN (Reason: Pain) mirtazapine 15 mg Tablet,Disintegrating 15 mg PO BEDTIME Discharge Orders: Discharge ED (Routine); Ordered 10/26/24 Ordered By: Abdirahman Jeffrey Discharge Diet: Usual diet Discharge Activity: Increase activity as tolerated Patient Instructions: Wrist Sprain (ED), Pain Management, Patient Portal & Daron Instructions Activity Restrictions/Additional Instructions: No fracture or acute bony abnormality noted on the x-ray today, pending radiology review. The injury is likely a sprain Use the provided splint to help protect the wrist from further injury. Please remove the splint at least twice daily to work on range of motion exercises Proceed with [id number] acetaminophen/ibuprofen as needed for pain and comfort Apply a cool compress for 10 to 15 minutes at a time and elevate the wrist to help with pain Follow-up with primary care, call later this week with an update of symptoms and to discuss a recheck Return to the emergency department if any further injury, rapid worsening symptoms, and as needed Print Language: Luxembourgish Coding Level of Care Code ED Algology Teacher for Carola Vieyra
[2024-10-26 21:21] VITALS: BP 130/80; PULSE 118; O2SAT 97
== END 2024-10-26 21:33 | disposition home or self-care (01) ==
PROVIDERS: Emergency Provider Nurse Practitioner
DX: S63.502A Unspecified sprain of left wrist, initial encounter (principal); Z72.0 Tobacco use; X58.XXXA Exposure to other specified factors, initial encounter
CPT/HCPCS: 73110; 99283; J9999

== ENCOUNTER 2025-03-05 23:51 | Emergency (ER) | payer SELFPAY ==
[2025-03-05 23:56] VITALS: BP 138/103; PULSE 102; RESP 18; TEMP 36.6; O2SAT 99; BMI 24.3
--- OUTSIDE RECORDS SUMMARY | 2025-03-05 23:56 | XMS_ITS | Clinical Summary ---
Author Organization [facility] Address [address] [place] [address] Phone Care Team Providers Care Drug And Alcohol Counsellor Name Role Phone Unavailable Primary Care Provider [...] (1 of 3 - 19+ 3-dose series) 06/20 HPV/Cotest (21-29) 2009 HPV VACCINES (1 - 3-dose SCDM series) 07/04/2015 CERVICAL CANCER SCREENING 2018 HPV/Cotest (30-65) 2018 PAP SMEAR 2018 INFLUENZA VACCINE (#1) 2024
[2025-03-06 00:21] VITALS: BP 138/87; O2SAT 98
--- NOTE | 2025-03-06 00:47 | PC.NURSE ---
Pt. denies suicidal ideation or homicidal ideation. Pt. states that she was acting out to get the attention of the police away from her boyfriend
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
[2025-03-06 01:56] VITALS: RESP 20
[2025-03-06] MEDS: oxyCODONE-APAP 5-325 mg Tablet 2 TAB PO (01:56)
[2025-03-06 02:06] VITALS: BP 135/89; PULSE 86; O2SAT 99
--- NOTE | 2025-03-06 02:07 | PC.NURSE ---
Patient took one Percocet in ED and an extra one for home with DC instructions to wait 6 hrs before taking the additional Percocet.
[2025-03-06 02:09] VITALS: BP 135/89; PULSE 86; O2SAT 100
== END 2025-03-06 02:11 | disposition home or self-care (01) ==
PROVIDERS: Emergency Provider Emergency Medicine
DX: S61.210A Laceration without foreign body of right index finger without damage to nail, initial encounter (principal); W26.0XXA Contact with knife, initial encounter
CPT/HCPCS: 12042; 99285; 99291; 99292; J9999

== ENCOUNTER 2025-03-19 14:08 | Emergency (ER) | payer OTHER, SELFPAY ==
[2025-03-19 14:12] VITALS: PULSE 98; RESP 18; TEMP 36.8; O2SAT 99; BMI 29.2
--- OUTSIDE RECORDS SUMMARY | 2025-03-19 14:13 | XMS_ITS | Clinical Summary ---
Author Organization [facility] Address [address] [facility] [address] [place] [address] Phone Care Team Providers Care Food Mixer Repairer Name Role Phone Unavailable Primary Care Provider [...]
[2025-03-19] MEDS: BUPivacaine 0.5% INJ 10 mL INJECTION (14:17)
--- NOTE | 2025-03-19 14:26 | W.ED.RECABL ---
HPI - Recheck/Abnormal Lab/Rx General: Chief Complaint: Recheck/Abnormal Lab/Rx Stated Complaint: R index Finger needs stitches out skin grown over Time Seen by Provider: 03/19/25 14:10 Source: patient Mode of arrival: ambulatory Limitations: no limitations History of Present Illness: 34-year-old female who states that she had sutures to right index finger 2 weeks ago is here for suture removal. She denies any fever states she has had some pain. Denies any bleeding Related Data Home Medications ?Medication ?Instructions ?Recorded ?Confirmed [id number] 250 1 - 2 tab PO Q6H PRN Migraine 09/21/20 02/11/24 mg-250 mg-65 mg tablet (Excedrin Headache Migraine) bupropion HCl 150 mg 24 hr tablet, 150 mg PO QAM 08/02/23 02/11/24 extended release escitalopram oxalate 20 mg tablet 20 mg PO QAM 08/02/23 02/11/24 quetiapine 50 mg tablet 50 mg PO BEDTIME 08/02/23 02/11/24 acetaminophen 325 mg tablet 325 mg PO QID PRN Headache 02/11/24 02/11/24 (Tylenol) albuterol sulfate 90 mcg/actuation 1 - 2 inh inhalation PRN PRN asthma 02/11/24 02/11/24 aerosol inhaler (Ventolin HFA) hydroxyzine pamoate 50 mg capsule 200 mg PO BEDTIME 02/11/24 02/11/24 ibuprofen 200 mg tablet (Advil) 600 mg PO Q6H PRN Pain 02/11/24 02/11/24 mirtazapine 15 mg disintegrating 15 mg PO BEDTIME 02/11/24 02/11/24 tablet naproxen 250 mg tablet 250 mg PO BID 02/11/24 02/11/24 Allergies Allergy/AdvReac Type Severity Reaction Status Date / Time ketorolac (From Toradol) Allergy ADR-Headach Verified 10/26/24 18:26 e Penicillins Allergy Unresponsiv Verified 10/26/24 18:26 e tramadol Allergy Seizures Verified 10/26/24 18:26 trazodone Allergy Seizures Verified 10/26/24 18:26 PFS ED PFSH: Medical History (Updated 03/19/25 @ 14:11 by Brian Cohen MD) No pertinent family history Bipolar disorder Social History Smoking and tobacco/nicotine status: current every day tobacco/nicotine user Physical Exam Const: COMMON NORMALS: no acute distress HENMT: COMMON NORMALS: normocephalic and atraumatic HEAD & SCALP: normocephalic and atraumatic Eye: COMMON NORMALS: conjunctivae normal CONJUNCTIVA: Yes conjunctivae normal Chest: COMMONS NORMALS: normal inspection of the chest Resp: COMMON NORMALS: normal respiratory effort Extremity: COMMON NORMALS: normal to inspection Skin: NARRATIVE SKIN EXAM: Sutures in place to distal tip of right index finger no redness wounds clean dry and intact Procedures Nerve Block Nerve Block 1: Time out performed: Yes Local Anesthetic: bupivacaine 0.5% Amount of anesthesia used (mL): 10 Nerve Blocks: digital (right pointer finger) Course Vital Signs: Vital signs: Vital Signs Temperature 98.3 F 03/19/25 14:12 Pulse Rate 98 03/19/25 14:12 Respiratory Rate 18 03/19/25 14:12 Pulse Oximetry 99 03/19/25 14:12 Oxygen Delivery Me thod Room Air 03/19/25 14:12 MDM - Recheck/Abnormal Lab/Rx Medical Decision Making Patient presents here for suture removal patient was having pain during removal did have to perform a digital block to be able to remove the sutures. Removed all 6 sutures has no signs of infection she is stable for discharge at this time. Medical Records I reviewed the patient's medical records. No radiology studies performed this visit Discharge Plan Discharge Patient Disposition: Home Clinical Impression: Encounter for removal of sutures Condition: Stable Prescriptions: No Action Excedrin Migraine 250-250-65 mg Tablet 1 - 2 tab PO Q6H PRN (Reason: Migraine Headache) escitalopram oxalate 20 mg tablet 20 mg PO QAM bupropion HCl 150 mg tablet extended release 24 hr 150 mg PO QAM quetiapine 50 mg tablet 50 mg PO BEDTIME albuterol sulfate [Ventolin HFA] 90 mcg/actuation Hfa Aerosol Inhaler 1 - 2 inh INHALATION PRN PRN (Reason: asthma) acetaminophen [Tylenol] 325 mg Tablet 325 mg PO QID PRN (Reason: Headache) naproxen 250 mg tablet 250 mg PO BID hydroxyzine pamoate 50 mg Capsule 200 mg PO BEDTIME ibuprofen [Advil] 200 mg Tablet 600 mg PO Q6H PRN (Reason: Pain) mirtazapine 15 mg Tablet,Disintegrating 15 mg PO BEDTIME Discharge Orders: Discharge ED (Routine); Ordered 03/19/25 Ordered By: Brian Cohen Discharge Diet: Advance as tolerated Discharge Activity: Resume usual activity Patient Instructions: Opioid Safety, Pain Management, Patient Portal & Daron Instructions Print Language: Maltese Coding Level of Care Code ED Compensation Adjuster for Carola Vieyra
== END 2025-03-19 14:28 | disposition home or self-care (01) ==
PROVIDERS: Emergency Provider Emergency Medicine
DX: Z48.02 Encounter for removal of sutures (principal); Z72.0 Tobacco use
CPT/HCPCS: 99283; J3490

== ENCOUNTER 2025-04-11 18:47 | Emergency (ER) | payer OTHER, SELFPAY ==
[2025-04-11 18:47] VITALS: BP 129/81; PULSE 111; RESP 22; TEMP 36.5; O2SAT 99; BMI 24.0
[2025-04-11 18:53] VITALS: BP 129/81; PULSE 111; RESP 22; TEMP 36.5; O2SAT 99
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
--- OUTSIDE RECORDS SUMMARY | 2025-04-11 19:07 | XMS_ITS | Clinical Summary ---
Author Organization [facility] Address [address] [facility] [address] [place] [address] Phone Care Team Providers Care Mental Health Coordinator Name Role Phone Unavailable Primary Care Provider [...] 19+ 3-dose series) 06/20 HPV/Cotest (21-29) 2009 CERVICAL CANCER SCREENING 2018 HPV/Cotest (30-65) 2018 PAP SMEAR 2018 INFLUENZA VACCINE (#1) 2024 HPV VACCINES (No Doses Required) Completed
[2025-04-11] MEDS: tetracaine 0.5% Op Soln 4 mL Btl 1 DROP EYE-RIGHT (20:26)
[2025-04-11 20:37] VITALS: BP 114/74; PULSE 89; O2SAT 97
== END 2025-04-11 20:39 | disposition home or self-care (01) ==
PROVIDERS: Emergency Provider Student in an Organized Health Care Education/Training Program
DX: S05.91XA Unspecified injury of right eye and orbit, initial encounter (principal); Z72.0 Tobacco use; Y04.2XXA Assault by strike against or bumped into by another person, initial encounter
CPT/HCPCS: 99283; J9999